=== PATIENT | female | born 1960 ===

== ENCOUNTER 2021-03-09 09:51 | Outpatient (REF) | payer MEDICARE, OTHER, SELFPAY ==
[2021-03-09 10:48] LABS: MANUAL DIFF FLAG NO
[2021-03-09 10:53] LABS: Basophils Percent Auto 0.7 % (0-2); Eosinophils Absolute Auto 0.1 X10*3/uL (0.0-0.4); Eosinophils Percent Auto 2.1 % (0-4); Hematocrit 42.6 % (37-47); Hemoglobin 14.2 g/dl (12.0-16.0); Imm Gran Abs Auto 0.02 X10*3/uL (0.00-0.03); Imm Gran Pct Auto 0.3 % (0.0-0.4); Lymphocytes Absolute Auto 1.6 X10*3/uL (1.2-4.9); Mean Corpuscular HGB Conc 33.3 g/dl (31.0-35.0); Monocytes Absolute Auto 0.3 X10*3/uL (0.1-1.2); Monocytes Percent Auto 5.6 % (2-11); Neutrophils Percent Auto 65.3 % (45-73); Platelet Count 233 X10*3/uL (160-400); Red Blood Count 4.58 X10*6/uL (4.20-5.50); Red Cell Distribution Width 12.7 % (11.0-16.0); White Blood Count 6.1 X10*3/uL (4.8-10.8)
[2021-03-09 11:05] LABS: Glucose Urine UA 100 MG/DL (NEG); Leukocyte Esterase Urine TRACE (NEG); Nitrite Urine NEG (NEG); Specific Gravity - Urine >= 1.030 (1.005-1.025); UACC Culture Trigger YES; Urine Blood NEG (NEG); Urine Ketones NEG (NEG); Urine Protein NEG (NEG-TRACE)
[2021-03-09 11:07] LABS: Appearance Urine HAZY; Color Urine YELLOW
[2021-03-09 11:22] LABS: Alanine Aminotransferase 21 U/L (0-31); Alkaline Phosphatase 100 U/L (39-117); Anion Gap 12 (12-20); Aspartate Amino Transferase 19 U/L (5-31); Bilirubin Total 0.4 mg/dL (0.0-1.0); Blood Urea Nitrogen 16 mg/dL (9-16); Calcium 10.2 mg/dL (8.4-10.2); Carbon Dioxide 28 mmol/L (22-29); Chloride 103 mmol/L (96-108); Cholesterol 252 mg/dL; Estimated Glomerular Filt Rate 59; Glucose Fasting 203 mg/dL (60-99); HDL Cholesterol 51 mg/dL; LDL Cholesterol Calculated 163 mg/dl; Potassium 4.8 mmol/L (3.3-5.1); Sodium 138 mmol/L (135-145); Triglycerides 192 mg/dL
[2021-03-09 11:25] LABS: Creatinine Urine 158.64 mg/dL; Microalbum/Creatinine Ratio Ur 17.6 ug/mg cr
[2021-03-09 11:44] LABS: TSH reflex Free T4 0.96 uIU/mL (0.32-4.0); Vitamin D 25-OH Total 37.9 ng/mL (>30)
[2021-03-09 12:59] LABS: Bacteria Urine 1+ /LPF; RBC Urine 0 /HPF (0); Squamous Epithelial Cell Urine TRACE /LPF
[2021-03-09 13:00] LABS: Calcium Phosphate Crystals Ur TRACE /LPF
[2021-03-10 13:01] LABS: C Peptide 3.66 ng/mL (0.80-3.85)
== END 2021-03-09 09:52 | disposition home or self-care (01) ==
LOC: HO.LAB 09:51
PROVIDERS: PCP Internal Medicine; Visit Provider Internal Medicine
DX: E78.00 Pure hypercholesterolemia, unspecified (principal); E11.65 Type 2 diabetes mellitus with hyperglycemia; I10 Essential (primary) hypertension; E55.9 Vitamin D deficiency, unspecified
CPT/HCPCS: 36415; 80053; 80061; 81001; 81003; 82043; 82306; 84443; 84681; 85025; 87086

== ENCOUNTER 2021-07-10 07:01 | Outpatient (REF) | payer MEDICARE, OTHER, SELFPAY ==
[2021-07-10 07:13] LABS: MANUAL DIFF FLAG NO
[2021-07-10 08:18] LABS: Basophils Absolute Auto 0.1 X10*3/uL (0.0-0.2); Basophils Percent Auto 0.7 % (0-2); Eosinophils Absolute Auto 0.2 X10*3/uL (0.0-0.4); Eosinophils Percent Auto 2.2 % (0-4); Hematocrit 44.2 % (37.0-47.0); Hemoglobin 14.5 g/dl (12.0-16.0); Imm Gran Abs Auto 0.04 X10*3/uL (0.00-0.03); Imm Gran Pct Auto 0.6 % (0.0-0.4); Lymphocytes Absolute Auto 1.9 X10*3/uL (1.2-4.9); Lymphocytes Percent Auto 27.7 % (20-40); Mean Corpuscular HGB Conc 32.8 g/dl (31.0-35.0); Mean Corpuscular Hemoglobin 30.6 pg (27.0-33.0); Mean Corpuscular Volume 93.2 fL (80.0-98.0); Mean Platelet Volume 9.8 fL (9.4-12.3); Monocytes Absolute Auto 0.5 X10*3/uL (0.1-1.2); Monocytes Percent Auto 7.9 % (2-11); Neutrophils Absolute Auto 4.2 x10*3/uL (2.0-8.3); Neutrophils Percent Auto 60.9 % (45-73); Platelet Count 240 X10*3/uL (160-400); Red Blood Count 4.74 X10*6/uL (4.20-5.50); White Blood Count 6.8 X10*3/uL (4.8-10.8)
[2021-07-10 08:21] LABS: Appearance Urine CLEAR; Color Urine YELLOW; Glucose Urine UA 100 MG/DL (NEG); Leukocyte Esterase Urine NEG (NEG); Nitrite Urine NEG (NEG); PH 5.5 (5.0-8.0); Specific Gravity - Urine 1.015 (1.005-1.025); Urine Blood NEG (NEG); Urine Ketones NEG (NEG); Urine Protein NEG (NEG-TRACE)
[2021-07-10 08:38] LABS: Estimated Average Glucose 194 mg/dL; Hemoglobin A1c % 8.4 %
[2021-07-10 08:39] LABS: Alanine Aminotransferase 19 U/L (0-31); Albumin Level 3.9 g/dL (3.5-5.0); Alkaline Phosphatase 111 U/L (39-117); Anion Gap 12 (12-20); Aspartate Amino Transferase 18 U/L (5-31); Bilirubin Total 0.3 mg/dL (0.0-1.0); Blood Urea Nitrogen 15 mg/dL (9-16); Calcium 9.9 mg/dL (8.4-10.2); Carbon Dioxide 28 mmol/L (22-29); Chloride 105 mmol/L (96-108); Cholesterol 150 mg/dL; Estimated Glomerular Filt Rate 54; Glucose Fasting 149 mg/dL (60-99); HDL Cholesterol 40 mg/dL; LDL Cholesterol Calculated 88 mg/dl; Potassium 4.3 mmol/L (3.3-5.1); Sodium 141 mmol/L (135-145); Total Protein 6.9 g/dL (6.5-8.0); Triglycerides 113 mg/dL
[2021-07-10 08:47] LABS: Creatinine Urine 97.43 mg/dL; Microalbum/Creatinine Ratio Ur 14.3 ug/mg cr
[2021-07-10 09:05] LABS: Vitamin D 25-OH Total 28.7 ng/mL (>30)
== END 2021-07-10 07:02 | disposition home or self-care (01) ==
LOC: HO.LAB 07:01
PROVIDERS: PCP Internal Medicine; Visit Provider Internal Medicine
DX: I10 Essential (primary) hypertension (principal); E11.65 Type 2 diabetes mellitus with hyperglycemia; E78.00 Pure hypercholesterolemia, unspecified; E55.9 Vitamin D deficiency, unspecified
CPT/HCPCS: 36415; 80053; 80061; 81003; 82043; 82306; 83036; 84443; 85025

== ENCOUNTER 2021-09-10 08:23 | Outpatient (REF) | payer MEDICARE, OTHER, SELFPAY ==
[2021-09-10 08:47] LABS: MANUAL DIFF FLAG NO
[2021-09-10 09:05] LABS: Basophils Percent Auto 0.5 % (0-2); Eosinophils Absolute Auto 0.2 X10*3/uL (0.0-0.4); Eosinophils Percent Auto 2.5 % (0-4); Hematocrit 43.4 % (37.0-47.0); Hemoglobin 14.5 g/dl (12.0-16.0); Imm Gran Abs Auto 0.02 X10*3/uL (0.00-0.03); Imm Gran Pct Auto 0.3 % (0.0-0.4); Lymphocytes Absolute Auto 1.7 X10*3/uL (1.2-4.9); Lymphocytes Percent Auto 28.6 % (20-40); Mean Corpuscular HGB Conc 33.4 g/dl (31.0-35.0); Mean Corpuscular Hemoglobin 30.7 pg (27.0-33.0); Mean Corpuscular Volume 91.8 fL (80.0-98.0); Mean Platelet Volume 9.6 fL (9.4-12.3); Monocytes Absolute Auto 0.4 X10*3/uL (0.1-1.2); Monocytes Percent Auto 6.2 % (2-11); Neutrophils Absolute Auto 3.7 x10*3/uL (2.0-8.3); Neutrophils Percent Auto 61.9 % (45-73); Platelet Count 240 X10*3/uL (160-400); Red Blood Count 4.73 X10*6/uL (4.20-5.50); Red Cell Distribution Width 12.8 % (11.0-16.0)
[2021-09-10 09:15] LABS: Estimated Average Glucose 186 mg/dL; Hemoglobin A1c % 8.1 %
[2021-09-10 09:32] LABS: Creatinine Urine 256.23 mg/dL; Microalbum/Creatinine Ratio Ur 18.7 ug/mg cr
[2021-09-10 09:36] LABS: Alanine Aminotransferase 14 U/L (0-31); Alkaline Phosphatase 105 U/L (39-117); Anion Gap 11 (12-20); Aspartate Amino Transferase 17 U/L (5-31); Bilirubin Total 0.3 mg/dL (0.0-1.0); Blood Urea Nitrogen 15 mg/dL (9-16); Calcium 9.9 mg/dL (8.4-10.2); Carbon Dioxide 26 mmol/L (22-29); Chloride 105 mmol/L (96-108); Cholesterol 152 mg/dL; Estimated Glomerular Filt Rate 54; Glucose Fasting 160 mg/dL (60-99); HDL Cholesterol 43 mg/dL; LDL Cholesterol Calculated 79 mg/dl; Potassium 4.4 mmol/L (3.3-5.1); Sodium 138 mmol/L (135-145); Triglycerides 152 mg/dL
[2021-09-10 09:57] LABS: TSH reflex Free T4 0.69 uIU/mL (0.32-4.0); Vitamin D 25-OH Total 27.2 ng/mL (>30)
[2021-09-10 15:45] LABS: Appearance Urine CLOUDY; Color Urine YELLOW; Glucose Urine UA NEG (NEG); Leukocyte Esterase Urine NEG (NEG); Nitrite Urine NEG (NEG); PH 5.5 (5.0-8.0); Specific Gravity - Urine >= 1.030 (1.005-1.025); Urine Blood NEG (NEG); Urine Ketones NEG (NEG); Urine Protein TRACE MG/DL (NEG-TRACE)
== END 2021-09-10 08:24 | disposition home or self-care (01) ==
LOC: HO.LAB 08:23
PROVIDERS: PCP Internal Medicine; Visit Provider Internal Medicine
DX: E11.9 Type 2 diabetes mellitus without complications (principal); E78.00 Pure hypercholesterolemia, unspecified; I10 Essential (primary) hypertension; E55.9 Vitamin D deficiency, unspecified
CPT/HCPCS: 36415; 80053; 80061; 81003; 82043; 82306; 83036; 84443; 85025

== ENCOUNTER 2021-11-06 08:33 | Outpatient (REF) | payer MEDICARE, OTHER, SELFPAY ==
[2021-11-06 10:21] LABS: Appearance Urine HAZY; Color Urine YELLOW; Glucose Urine UA NEG (NEG); Leukocyte Esterase Urine NEG (NEG); Nitrite Urine NEG (NEG); PH 5.5 (5.0-8.0); Specific Gravity - Urine >= 1.030 (1.005-1.025); Urine Blood NEG (NEG); Urine Ketones NEG (NEG); Urine Protein NEG (NEG-TRACE)
== END 2021-11-06 08:34 | disposition home or self-care (01) ==
LOC: HO.LAB 08:33
PROVIDERS: PCP Internal Medicine; Visit Provider Internal Medicine
DX: E11.65 Type 2 diabetes mellitus with hyperglycemia (principal); I10 Essential (primary) hypertension
CPT/HCPCS: 81003

== ENCOUNTER 2022-03-30 08:08 | Outpatient (REF) | payer MEDICARE, OTHER, SELFPAY ==
[2022-03-30 08:23] LABS: MANUAL DIFF FLAG NO
[2022-03-30 08:45] LABS: Basophils Absolute Auto 0.1 X10*3/uL (0.0-0.2); Basophils Percent Auto 0.9 % (0-2); Eosinophils Absolute Auto 0.2 X10*3/uL (0.0-0.4); Eosinophils Percent Auto 2.8 % (0-4); Hematocrit 42.3 % (37.0-47.0); Hemoglobin 14.2 g/dl (12.0-16.0); Imm Gran Abs Auto 0.02 X10*3/uL (0.00-0.03); Imm Gran Pct Auto 0.3 % (0.0-0.4); Lymphocytes Absolute Auto 1.8 X10*3/uL (1.2-4.9); Lymphocytes Percent Auto 31.5 % (20-40); Mean Corpuscular HGB Conc 33.6 g/dl (31.0-35.0); Mean Corpuscular Hemoglobin 30.7 pg (27.0-33.0); Mean Corpuscular Volume 91.6 fL (80.0-98.0); Mean Platelet Volume 9.4 fL (9.4-12.3); Monocytes Absolute Auto 0.4 X10*3/uL (0.1-1.2); Monocytes Percent Auto 7.4 % (2-11); Neutrophils Absolute Auto 3.3 x10*3/uL (2.0-8.3); Neutrophils Percent Auto 57.1 % (45-73); Platelet Count 223 X10*3/uL (160-400); Red Blood Count 4.62 X10*6/uL (4.20-5.50); Red Cell Distribution Width 12.9 % (11.0-16.0); White Blood Count 5.8 X10*3/uL (4.8-10.8)
[2022-03-30 08:47] LABS: Appearance Urine Clear; Color Urine Yellow; Glucose Urine UA Negative (Negative); Leukocyte Esterase Urine Negative (Negative); Nitrite Urine Negative (Negative); PH 5.5 (5.0-9.0); Specific Gravity - Urine 1.015 (1.005-1.025); Urine Blood Negative (Negative); Urine Ketones Negative (Negative); Urine Protein Negative (Neg-Trace)
[2022-03-30 09:00] LABS: Creatinine Urine 80.68 mg/dL; Microalbum/Creatinine Ratio Ur 27.2 ug/mg cr
[2022-03-30 09:10] LABS: B Type Natriuretic Peptide 19 pg/mL (<100)
[2022-03-30 09:18] LABS: Alanine Aminotransferase 23 U/L (0-31); Albumin Level 4.2 g/dL (3.5-5.0); Alkaline Phosphatase 102 U/L (39-117); Anion Gap 14 (12-20); Aspartate Amino Transferase 18 U/L (5-31); Bilirubin Total 0.5 mg/dL (0.0-1.0); Blood Urea Nitrogen 16 mg/dL (9-16); Calcium 9.9 mg/dL (8.4-10.2); Carbon Dioxide 26 mmol/L (22-29); Chloride 105 mmol/L (96-108); Cholesterol 182 mg/dL; Estimated Glomerular Filt Rate 60; Glucose Fasting 110 mg/dL (60-99); HDL Cholesterol 46 mg/dL; LDL Cholesterol Calculated 110 mg/dl; Potassium 4.2 mmol/L (3.3-5.1); Sodium 141 mmol/L (135-145); Total Protein 7.5 g/dL (6.5-8.0); Triglycerides 132 mg/dL
[2022-03-30 09:21] LABS: Estimated Average Glucose 194 mg/dL; Hemoglobin A1c % 8.4 %
[2022-03-30 09:40] LABS: TSH reflex Free T4 0.94 uIU/mL (0.32-4.0); Vitamin D 25-OH Total 42.6 ng/mL (>30)
== END 2022-03-30 08:09 | disposition home or self-care (01) ==
LOC: HO.LAB 08:08
PROVIDERS: PCP Internal Medicine; Visit Provider Internal Medicine
DX: I11.0 Hypertensive heart disease with heart failure (principal); I50.9 Heart failure, unspecified; E11.9 Type 2 diabetes mellitus without complications; E55.9 Vitamin D deficiency, unspecified; E78.00 Pure hypercholesterolemia, unspecified
CPT/HCPCS: 36415; 80053; 80061; 81003; 82043; 82306; 83036; 83880; 84443; 85025

== ENCOUNTER 2022-09-06 07:48 | Outpatient (REF) | payer MEDICARE, OTHER, SELFPAY ==
--- NOTE | ~2022-09-06 | US_ITS ---
EXAMINATION: US ABDOMEN COMPLETE CLINICAL INFORMATION: Unspecified abdominal pain. COMPARISON: None TECHNIQUE: Real-time imaging of the abdominal viscera. FINDINGS: PANCREAS: The pancreas appears unremarkable, without masses or ductal dilatation, with the exception of the tail which is obscured by bowel gas. ABDOMINAL AORTA: The proximal, mid, and distal segments are normal in caliber. INFERIOR VENA CAVA: Visualized portions are normal. LIVER: Normal. The liver is normal in size. The liver contour is normal. There is diffuse increased liver parenchymal echogenicity, consistent with hepatic steatosis. No focal hepatic lesion. There is no intrahepatic biliary duct dilatation seen. GALLBLADDER: Normal. The gallbladder is physiologically distended without evidence of stones, sludge, polyps, wall thickening or pericholecystic fluid. COMMON BILE DUCT: Normal in caliber measuring 0.7 cm in diameter. RIGHT KIDNEY: Normal. No hydronephrosis. No renal calculi or focal parenchymal lesions. The kidney measures 9.2 cm in maximum dimension. LEFT KIDNEY: Normal. No hydronephrosis. No renal calculi or focal parenchymal lesions. The kidney measures 11.3 cm in maximum dimension. SPLEEN: Normal. The spleen measures 10.5 cm in maximum dimension. FREE FLUID: None. US/US abdomen complete IMPRESSION: Hepatic steatosis.
== END 2022-09-06 07:49 | disposition home or self-care (01) ==
LOC: HO.US 07:48
PROVIDERS: Visit Provider Internal Medicine
DX: R10.9 Unspecified abdominal pain (principal); R68.81 Early satiety
CPT/HCPCS: 76700

== ENCOUNTER 2022-10-08 14:54 | Outpatient (REF) | payer MEDICARE, OTHER, SELFPAY ==
--- NOTE | ~2022-10-08 | XR_ITS ---
EXAMINATION: XR CHEST CLINICAL INFORMATION: Acute bronchitis. COMPARISON: None available. TECHNIQUE: 2 views of the chest were obtained. FINDINGS: Support devices: Left-sided pacemaker device appears in good position. No significant abnormality is noted involving the heart, lungs, mediastinum, bony thorax or soft tissues. XR/XR chest 2V IMPRESSION: No acute cardiopulmonary process.
== END 2022-10-08 14:55 | disposition home or self-care (01) ==
LOC: HO.HMGCX 14:54
PROVIDERS: Visit Provider Internal Medicine
DX: J20.9 Acute bronchitis, unspecified (principal)
CPT/HCPCS: 71046

== ENCOUNTER 2023-04-04 06:11 | Outpatient (REF) | payer MEDICARE, OTHER, SELFPAY ==
[2023-04-04 12:06] LABS: Alanine Aminotransferase 11 U/L (0-31); Albumin Level 4.4 g/dL (3.5-5.0); Alkaline Phosphatase 84 U/L (39-117); Anion Gap 13 (12-20); Aspartate Amino Transferase 16 U/L (5-31); Bilirubin Total 0.4 mg/dL (0.0-1.0); Blood Urea Nitrogen 21 mg/dL (9-16); Calcium 10.2 mg/dL (8.4-10.2); Carbon Dioxide 25 mmol/L (22-29); Chloride 107 mmol/L (96-108); Cholesterol 146 mg/dL (<200); Estimated Glomerular Filt Rate 46; Glucose Fasting 143 mg/dL (60-99); HDL Cholesterol 41 mg/dL (>40); LDL Cholesterol Calculated 86 mg/dL (<100); Potassium 4.6 mmol/L (3.3-5.1); Sodium 140 mmol/L (135-145); Total Protein 7.6 g/dL (6.5-8.0); Triglycerides 96 mg/dL (<150)
[2023-04-04 12:33] LABS: Estimated Average Glucose 143 mg/dL; Hemoglobin A1c % 6.6 % (<6.0)
== END 2023-04-04 06:12 | disposition home or self-care (01) ==
LOC: HO.HMGCLDS 06:11
PROVIDERS: PCP Internal Medicine; Visit Provider Internal Medicine
DX: E78.00 Pure hypercholesterolemia, unspecified (principal); E11.9 Type 2 diabetes mellitus without complications
CPT/HCPCS: 36415; 80053; 80061; 83036

== ENCOUNTER 2023-04-07 15:21 | Outpatient (AMB) | payer MEDICARE, OTHER, SELFPAY ==
[2023-04-07 15:27] VITALS: BP 122/80; PULSE 68; O2SAT 96; BMI 24.6
--- NOTE | 2023-04-07 15:27 | MHC.PC.OV ---
Vital Signs 04/07/23 15:27 Height 5 ft 3 in Weight 139 lb BMI 24.6 BP 122/80 Blood Pressure Location Lt brachial Position Sitting Pulse 68 Pulse Source Pulse Oximeter Pulse Oximetry (%) 96 Oxygen Delivery Method Room Air Intake Visit Reasons: DM, hyperlipidemia Vein Pumper Required: No Accompanied by: Self / Same As Patient Allergies No Known Allergies Allergy (Verified 04/07/23 16:00) Medication List - Last Reconciled 04/07/23 by Arthur Pro MD albuterol sulfate 90 mcg/actuation (ProAir HFA) 2 puffs inhalation Q6H PRN 30 days amlodipine 5 mg PO DAILY aspirin 81 mg PO DAILY atorvastatin 10 mg PO BEDTIME 90 days [BD Ultra Fine Micro Pen Needle 32 gauge x Use as directed] dicyclomine 10 mg PO BID PRN 30 days dulaglutide 1.5 mg (0.5 mL) subcut QWEEK 3 months estradiol 1 vag ring vaginal [id number] flash glucose scanning reader ([employer] Zoila 14 Day Perry) As directed flash glucose sensor (FreeStyle Zoila 14 Day Sensor kit) As directed fluticasone propionate 220 mcg/actuation (Flovent HFA) 2 puffs inhalation BID fluticasone propionate 50 mcg/actuation 1 spray intranasal BID furosemide 40 mg Q AM and 20 mg Q PM PO; glipizide ER 2.5 mg PO BID insulin glargine (Lantus Solostar U-100 Insulin) 10 units (0.1 mL) subcut QPM ivabradine 5 mg PO BID metoprolol succinate ER 12.5 mg PO DAILY mirtazapine 45 mg PO BEDTIME 90 days patiromer calcium sorbitex 8.4 grams PO DAILY pen needle, diabetic (BD Jen 2nd Gen Pen Needle) USE DIRECTED prednisone 60 mg (3 x 20 mg) PO DAILY ropinirole 5 mg PO BID 30 days sacubitril-valsartan 97-103 mg (Entresto) 1 tab PO BID sodium polystyrene sulf-sorbtl 15-20 gram/60 mL 60 mL PO .TIW tizanidine 4 mg PO BEDTIME PRN 30 days trazodone 100 mg PO BEDTIME PRN 90 days Tobacco use date assessed: 04/07/23 Dental Screening Dental Screen Date: 04/07/23 Did you have a dental visit in the last 12 months?: No Did you have a dental problem in the last 6 months where you did not have access to dental care?: No Was dental information given to patient?: No HPI DM, hyperlipidemia HPI Details Patient comes in today for her follow up visit States that she currently feels okay but has a small red spot near the tip of her left middle finger at the DIP joint that she states feels slightly painful and keeps recurring for the past few weeks now She denies any headaches or dizziness Denies any chest pains, no SOB No nausea/vomiting, no abdominal pain No change in bowel habits noted Had her follow-up labs done a few days ago - to discuss her results [facility] Medical History Hyperkalemia Anxiety and depression Depression Anxiety Insomnia Mild intermittent asthma Pure hypercholesterolemia Benign essential hypertension Non-ischemic cardiomyopathy Chronic HFrEF (heart failure with reduced ejection fraction) Diabetes mellitus with hyperglycemia DM (diabetes mellitus) type II uncontrolled with eye manifestation Surgical History History of implantable cardiac defibrillator (ICD) History of radiation therapy History of reduction surgery of left breast History of removal of cyst History of lumpectomy of right breast Family History Father Medical history unknown Mother No problems noted. Social History Housing: House Alcohol intake: current Alcohol intake frequency: holidays/special occasions only Patient Tobacco Use Status: Former Tobacco user e-Cigarette/Vaping Use: Never Used Second Hand Smoke Exposure: Yes Substance Use Type: Marijuana service: No Current occupational status: disabled Cognitive needs: No Hearing needs: No Vision needs: Yes Questionnaire PHQ-9 Over the last 2 weeks, how often have you been bothered by any of the following problems? 1. Little interest or pleasure in doing things: more than half the days 2. Feeling down, depressed, or hopeless: more than half the days 3. Trouble falling or staying asleep, or sleeping too much: more than half the days 4. Feeling tired or having little energy: nearly every day 5. Poor appetite or overeating: several days 6. Feeling bad about yourself - or that you are a failure or have let yourself or your family down: not at all 7. Trouble concentrating on things, such as reading the newspaper or watching television: more than half the days 8. Moving or speaking so slowly that other people could have noticed. Or the opposite - being so fidgety or restless that you have been moving around a lot more than usual: not at all 9. Thoughts that you would be better off or of hurting yourself in some way: not at all Total score: 12 Depression Screening Interpretation: Positive Depression Screening Follow-up: Existing condition and In treatment 95254 - PHQ-9 Billing: Yes Source: Developed by Drs. Quinn Nieves, Evangelina White, Uzair Beard and colleagues, with an educational antonietta from [employer]. Thrive Questionnaire Date Thrive assessed: 04/07/23 I am a: Patient What is your living situation today?: I have a steady place to live Within the past 12 months, did the food you bought not last and you didn't have the money to get more?: Never true Within the past 12 months, did you worry whether your food would run out before you got money to buy more?: Never true Do you have trouble paying for medicines?: No Do you have trouble getting transportation to medical appointments?: No Do you have trouble paying your heating and electricity bill?: No Do you have trouble taking care of your child, family member or friend?: No Do you have trouble with day-to-day activities such as bathing, preparing meals, shopping, managing finances, etc.?: No Are you currently unemployed and looking for a job?: No Are you interested in more education?: No Please select the resources that you would like help with: None Currently or been in a relationship where the following occur: no concerns reported AUDIT C Alcohol Use Questionnaire (AUDIT-C) 1. How often do you have a drink containing alcohol?: Never 3. How often do you have six or more drinks on one occasion?: Never Total Score: 0 Score Reviewed/Action Taken: Yes VINAY-7 AMB Questionnaire VINAY-7 Date VINAY - 7 assessed: 04/07/23 Feeling nervous, anxious, or on edge: 2 = More than half the days Not being able to stop or control worryin = More than half the days Worrying too much about different things: 1 = Several days Trouble relaxin = More than half the days Being so restless that it is hard to sit still: 0 = Not at all Becoming easily annoyed or irritable: 3 = Nearly every day Feeling afraid as if something awful might happen: 2 = More than half the days Total VINAY-7 score (0-4 normal; 5-9 mild; 10-14 moderate; 15-21 severe): 12 Source: Developed by Drs. Quinn Nieves, Evangelina White, Uzair Beard and colleagues, with an educational antonietta from [employer]. VINAY-7 Assessment Billing VINAY-7 Assessment Tool: VINAY-7 Assessment 31698 Review of Systems Const Reports difficulty sleeping, Reports fatigue, Denies fever(s) and Denies headache(s) ENT Denies dysphagia, Denies dizziness, Denies otalgia, Denies headache(s), Denies odynophagia and Denies sore throat Card Denies chest pain, Denies palpitations and Denies dyspnea Resp Denies cough and Denies dyspnea GI Denies abdominal pain, Denies constipation, Denies dysphagia, Denies heartburn, Denies diarrhea, Denies nausea, Denies odynophagia and Denies vomiting Denies difficulty voiding, Denies nocturia and Denies dysuria Skin/Breast Details: (+) recurrent lesion on the left middle finger - see HPI Neuro Denies dizziness and Denies headache(s) Psych Reports anxiety and Reports depression Endo Reports fatigue and Denies palpitations Physical exam (Primary Care) Vital Signs: Last Vital Signs Pulse 68 04/07/23 15:27 BP 122/80 04/07/23 15:27 Pulse Ox 96 04/07/23 15:27 Oxygen Delivery Method Room Air 04/07/23 15:27 BMI result Body Mass Index 24.6 Tobacco/Smoking Status: Tobacco use Status Tobacco use date assessed 04/07/23 04/07/23 15:35 Patient Tobacco Use Status Former Tobacco user 04/07/23 15:35 e-Cigarette/Vaping Use Never Used 04/07/23 15:35 PHQ-9: PHQ-9 Score PHQ-9: Total score 12 04/07/23 22:33 Depression Screening Interpretation: Positive Depression Screening Follow-up: Existing condition and In treatment Thrive Assessment: Date of Thrive Assessment Date Thrive assessed 04/07/23 04/07/23 15:35 Currently or been in a relationship where the following occur: no concerns reported Const General: no acute distress and alert HENMT Ears: TM's normal bilaterally and EAC's normal Throat: Yes posterior oropharynx normal and Yes tonsils normal (no TP congestion noted) Neck Neck: Yes no lymphadenopathy and Yes supple Resp Auscultation: clear to auscultation bilaterally, no rales and no wheezes Cardio Rate: regular rate Rhythm: regular rhythm Heart sounds: no murmurs GI Palpation (GI): Soft to palpation, nontender and no guarding Auscultation: normal bowel sounds General: Yes no CVA tenderness Back/Spine/Pelvis Back: no CVA tenderness Skin Other: (+) small, slightly tender erythematous lesion over the distal IP joint of the left middle finger Extrem General: Yes no clubbing, cyanosis or edema Results Reviewed Results Reviewed: Laboratory Tests 03/30/22 04/04/23 08:21 06:22 WBC 5.8 Hgb 14.2 Hct 42.3 Plt Count 223 Sodium 140 Potassium 4.6 Creatinine 1.18 Estimated GFR 46 Fasting Glucose 143 H Hemoglobin A1c % 6.6 H Calcium 10.2 AST 16 ALT 11 Triglycerides 96 Cholesterol 146 LDL Cholesterol, Calc 86 HDL Cholesterol 41 Assessment and Plan Assessment & Plan (1) Diabetes mellitus with hyperglycemia: Code(s): E11.65 - Type 2 diabetes mellitus with hyperglycemia Qualifiers: Diabetes mellitus fdc insulin use: with fdc use Diabetes mellitus type: type 2 Qualified Code(s): E11.65 - Type 2 diabetes mellitus with hyperglycemia; Z79.4 - alf (current) use of insulin Plan: HgbA1c was at 6.6% on patient's labs done a few days ago (in-office HgbA1c was at 6.3% previously) - goal is < 7.0% Patient admits to poor compliance with her diet when she went to [place] to visit family 1 to 2 months ago Reinforced diabetic diet Continue Glipizide ER 2.5 mg QD, Lantus Solostar 10 units Q HS and Trulicity 1.5 mg SQ once a week (2) Chronic HFrEF (heart failure with reduced ejection fraction): Comment: Chronic, compensated, NYHA class 3 stage C Has ICD for primary prevention Code(s): I50.22 - Chronic systolic (congestive) heart failure Plan: Appears compensated Reinforced fluid restriction Continue Furosemide 40 mg Q AM and 20 mg Q PM, Entresto 97-103 mg BID and Ivabradine 5 mg BID (is on Ivabradine for sinus tachycardia in the setting of NYHA class 3 HF and high resting HR on maximally tolerated BB - higher dose BB resulted in severe depression) Follow up with cardiology at [facility] as scheduled (3) Non-ischemic cardiomyopathy: Comment: Presumed etiology of her cardiomyopathy are either hypertension or related to her chemoradiation therapy for breast cancer years ago Code(s): I42.8 - Other cardiomyopathies Plan: Continue Metoprolol ER 12.5 mg QD and Aspirin 81 mg QD Follow up with cardiology at [facility] as scheduled (4) Benign essential hypertension: Code(s): I10 - Essential (primary) hypertension Plan: Reinforced low sodium diet - goal is systolic BP of 120 mm or less Continue Metoprolol ER 12.5 mg QD and Amlodipine 5 mg QD (5) Pure hypercholesterolemia: Code(s): E78.00 - Pure hypercholesterolemia, unspecified Plan: Results of her labs done a few days ago reviewed and discussed with patient Reinforced low cholesterol diet Continue Pravastatin 20 mg QD Will recheck her labs and fasting lipids in 4 month for follow up (6) Mild intermittent asthma: Code(s): J45.20 - Mild intermittent asthma, uncomplicated Qualifiers: Asthma complication type: uncomplicated Qualified Code(s): J45.20 - Mild intermittent asthma, uncomplicated Plan: Stable Contnue Flovent HFA 220 mcg 1 inhalation BID and ProAir HFA 2 inhalations every 6 hours as needed (7) Constipation: Code(s): K59.00 - Constipation, unspecified Qualifiers: Constipation type: unspecified constipation type Qualified Code(s): K59.00 - Constipation, unspecified Plan: Encouraged increased oral fluids and dietary fiber Continue Senna 8.6 mg 1 to 2 tablets QD PRN (8) Hyperkalemia: Code(s): E87.5 - Hyperkalemia Plan: Corrected - serum potassium level remains normal at 4.6 on her recent labs Continue Patiromer 8.4 gm QD and Sodium polystyrene sulfonate 15 gm/60 ml every -- (9) Allergic rhinitis: Code(s): J30.9 - Allergic rhinitis, unspecified Qualifiers: Allergic rhinitis seasonality: unspecified Allergic rhinitis trigger: unspecified Qualified Code(s): J30.9 - Allergic rhinitis, unspecified Plan: Continue OTC Loratadine 10 mg QD PRN or Cetirizine 10 mg QD PRN (10) Impetigo: Code(s): L01.00 - Impetigo, unspecified Plan: Lesion is on the IP joint of her left middle finger Will start her on Mupirocin 2% cream apply to lesion on finger TID until resolved (11) Insomnia: Code(s): G47.00 - Insomnia, unspecified Qualifiers: Insomnia type: unspecified Qualified Code(s): G47.00 - Insomnia, unspecified Plan: Sleep hygiene reinforced Continue Trazodone 50 to 100 mg Q HS PRN (12) Anxiety and depression: Code(s): F41.9 - Anxiety disorder, unspecified; F32.9 - Major depressive disorder, single episode, unspecified Plan: Continue Mirtazapine 45 mg Q HS Follow up with psychiatry as scheduled Plan Follow up in 4 months Orders: Orders Complete Blood Count Auto Diff 4 Months I10 - Essential (primary) hypertension Comprehensive [place]. Panel Fast 4 Months E78.00 - Pure hypercholesterolemia, unspecified TSH reflex Free T4 4 Months E78.00 - Pure hypercholesterolemia, unspecified UA CC w/rflx Micro + Cult 4 Months R30.0 - Dysuria Lipid Panel 4 Months E78.00 - Pure hypercholesterolemia, unspecified Hemoglobin A1c 4 Months E11.9 - Type 2 diabetes mellitus without complications Vitamin D 25-OH Total 4 Months E55.9 - Vitamin D deficiency, unspecified Medications: New mupirocin calcium 2% 1 appl topical TID 30 grams 1RF Coding Level of Care Code Est Pt Level 4 (83628) Diagnoses Type 2 diabetes mellitus with hyperglycemia, with long-term current use of insulin E11.65; Z79.4 Diabetes mellitus fdc insulin use: with fdc use Diabetes mellitus type: type 2 Chronic HFrEF (heart failure with reduced ejection fraction) I50.22 Non-ischemic cardiomyopathy I42.8 Benign essential hypertension I10 Pure hypercholesterolemia E78.00 Mild intermittent asthma without complication J45.20 Asthma complication type: uncomplicated Constipation, unspecified constipation type K59.00 Constipation type: unspecified constipation type Hyperkalemia E87.5 Allergic rhinitis, unspecified seasonality, unspecified trigger J30.9 Allergic rhinitis seasonality: unspecified Allergic rhinitis trigger: unspecified Impetigo L01.00 Insomnia, unspecified type G47.00 Insomnia type: unspecified Anxiety and depression F41.9; F32.9 Additional Codes VINAY-7 Assessment Billing - VINAY-7 Assessment Tool: VINAY-7 Assessment 54193 ([id number])
== END 2023-04-07 16:09 | disposition home or self-care (01) ==
PROVIDERS: Visit Provider Internal Medicine
DX: E11.65 Type 2 diabetes mellitus with hyperglycemia (principal); Z79.4 Long term (current) use of insulin; I11.0 Hypertensive heart disease with heart failure; I50.22 Chronic systolic (congestive) heart failure; I42.8 Other cardiomyopathies; E78.00 Pure hypercholesterolemia, unspecified; J45.20 Mild intermittent asthma, uncomplicated; K59.00 Constipation, unspecified; E87.5 Hyperkalemia; J30.9 Allergic rhinitis, unspecified; L01.00 Impetigo, unspecified; G47.00 Insomnia, unspecified
CPT/HCPCS: 99214

== ENCOUNTER 2023-05-16 06:39 | Outpatient (REF) | payer MEDICARE, OTHER, SELFPAY ==
--- NOTE | ~2023-05-16 | XR_ITS ---
EXAMINATION: XR CHEST CLINICAL INFORMATION: Patient stated cough for over 2 weeks COMPARISON: 10/08/2022. TECHNIQUE: 2 views of the chest were obtained. FINDINGS: There is no gross pneumothorax. Low lung volumes. Heart size within normal limits. Redemonstration of left-sided pacemaker, stable in position. There is no new focal consolidation to suggest pneumonia. No pleural effusion. Mild degenerative changes in the thoracic spine. XR/XR chest 2V IMPRESSION: No evidence of pneumonia.
== END 2023-05-16 06:40 | disposition home or self-care (01) ==
LOC: HO.XRAY 06:39
PROVIDERS: PCP Internal Medicine; Visit Provider Internal Medicine
DX: J98.8 Other specified respiratory disorders (principal); R05.9 Cough, unspecified
CPT/HCPCS: 71046

== ENCOUNTER 2023-05-24 07:39 | Outpatient (REF) | payer MEDICARE, OTHER, SELFPAY ==
[2023-05-24 11:06] LABS: MANUAL DIFF FLAG NO
[2023-05-24 11:15] LABS: Basophils Absolute Auto 0.1 X10*3/uL (0.0-0.2); Basophils Percent Auto 0.9 % (0-2); Eosinophils Absolute Auto 0.2 X10*3/uL (0.0-0.4); Eosinophils Percent Auto 3.2 % (0-4); Hemoglobin 14.9 g/dl (12.0-16.0); Imm Gran Abs Auto 0.02 X10*3/uL (0.00-0.03); Imm Gran Pct Auto 0.3 % (0.0-0.4); Lymphocytes Absolute Auto 1.9 X10*3/uL (1.2-4.9); Lymphocytes Percent Auto 27.5 % (20-40); Mean Corpuscular HGB Conc 33.9 g/dl (31.0-35.0); Mean Corpuscular Hemoglobin 31.8 pg (27.0-33.0); Mean Platelet Volume 10.2 fL (9.4-12.3); Monocytes Absolute Auto 0.4 X10*3/uL (0.1-1.2); Monocytes Percent Auto 6.1 % (2-11); Neutrophils Absolute Auto 4.3 x10*3/uL (2.0-8.3); Platelet Count 289 X10*3/uL (160-400); Red Blood Count 4.68 X10*6/uL (4.20-5.50); Red Cell Distribution Width 12.3 % (11.0-16.0); White Blood Count 6.9 X10*3/uL (4.8-10.8)
[2023-05-24 11:20] LABS: Appearance Urine Clear; Color Urine Yellow; Glucose Urine UA Negative (Negative); Leukocyte Esterase Urine Trace (Negative); Nitrite Urine Negative (Negative); PH 5.5 (5.0-9.0); Specific Gravity - Urine 1.015 (1.005-1.025); UMIC TRIGGER UACC YES; Urine Blood Negative (Negative); Urine Ketones Negative (Negative); Urine Protein Negative (Neg-Trace)
[2023-05-24 11:28] LABS: Bacteria Urine None Seen (None Seen); Estimated Average Glucose 140 mg/dL; Hemoglobin A1c % 6.5 % (<6.0); Hyaline Casts Urine 0-2 /LPF (0-2); RBC Urine 0-2 /HPF (0-2); Squamous Epithelial Cell Urine 0-2 /HPF (0-2); WBC Urine 0-5 /HPF (0-5)
[2023-05-24 11:44] LABS: Alanine Aminotransferase 17 U/L (0-31); Albumin Level 4.5 g/dL (3.5-5.0); Alkaline Phosphatase 76 U/L (39-117); Anion Gap 14 (12-20); Aspartate Amino Transferase 22 U/L (5-31); Bilirubin Total 0.5 mg/dL (0.0-1.0); Blood Urea Nitrogen 20 mg/dL (9-16); Calcium 11.1 mg/dL (8.4-10.2); Carbon Dioxide 25 mmol/L (22-29); Chloride 103 mmol/L (96-108); Cholesterol 162 mg/dL (<200); Estimated Glomerular Filt Rate 44; Glucose Fasting 129 mg/dL (60-99); Glucose Random 128 mg/dL (60-115); HDL Cholesterol 45 mg/dL (>40); LDL Cholesterol Calculated 92 mg/dL (<100); Potassium 5.1 mmol/L (3.3-5.1); Sodium 137 mmol/L (135-145); Total Protein 8.1 g/dL (6.5-8.0); Triglycerides 126 mg/dL (<150)
[2023-05-24 11:48] LABS: TSH reflex Free T4 1.12 uIU/mL (0.32-4.0)
[2023-05-24 11:50] LABS: Creatinine Urine 89.15 mg/dL
[2023-05-24 11:56] LABS: Vitamin D 25-OH Total 39.7 ng/mL (>30)
[2023-05-24 12:00] LABS: Folate 13.8 ng/mL (> or = 4.0); Vitamin B12 866 pg/mL (200-900)
[2023-05-26 13:56] LABS: B Type Natriuretic Peptide < 10 pg/mL (<100)
== END 2023-05-24 07:40 | disposition home or self-care (01) ==
LOC: HO.HMGCLDS 07:39
PROVIDERS: PCP Internal Medicine; Visit Provider Internal Medicine
DX: I11.0 Hypertensive heart disease with heart failure (principal); I50.9 Heart failure, unspecified; R05.9 Cough, unspecified; R06.00 Dyspnea, unspecified; E78.00 Pure hypercholesterolemia, unspecified; E11.9 Type 2 diabetes mellitus without complications; E55.9 Vitamin D deficiency, unspecified; E53.8 Deficiency of other specified B group vitamins
CPT/HCPCS: 36415; 80053; 80061; 81001; 82043; 82306; 82570; 82607; 82746; 83036; 83880; 84443; 85025

== ENCOUNTER 2023-06-24 09:55 | Outpatient (REF) | payer MEDICARE, OTHER, SELFPAY ==
--- NOTE | ~2023-06-24 | XR_ITS ---
EXAMINATION: XR HAND, LEFT CLINICAL INFORMATION: Pain COMPARISON: None available. TECHNIQUE: PA, lateral, and oblique views of the left hand. FINDINGS: No acute visible fracture or dislocation. Mild multi joint arthritic changes. Slight positive ulnar variance. Joint spaces and alignment are otherwise maintained. Soft tissues are unremarkable. XR/XR hand LT min 3V IMPRESSION: 1. No acute visible fracture or dislocation. 2. Mild multi joint arthritic changes. 3. Slight positive ulnar variance.
== END 2023-06-24 09:56 | disposition home or self-care (01) ==
LOC: HO.HOSX 09:55
PROVIDERS: Visit Provider Physician Assistant
DX: M67.442 Ganglion, left hand (principal); M79.645 Pain in left finger(s)
CPT/HCPCS: 73130; 99202

== ENCOUNTER 2023-06-24 14:53 | Outpatient (AMB) | payer MEDICARE, OTHER, SELFPAY ==
--- NOTE | 2023-06-24 15:18 | A.OFFVIS_ITS ---
Intake Intake Visit Reasons: Manager Paper- cyst over the distal IP joint LT middle finger Intake Note: Phyllis 63 yr old female who is right hand dominant presents today for her left middle finger DIP lump. States she has pain when putting on gloves and gives her discomfort with use of finger. Patient is looking to have this remove. Allergies No Known Allergies Allergy (Verified 06/24/23 15:23) HPI Manager Paper- cyst over the distal IP joint LT middle finger HPI Details 63-year-old right hand dominant female charleen yu presents in the office today, as a new patient, for an evaluation of left middle digit lump at the DIP. She claims to have pain when putting on gloves. She reports discomfort with use of the left middle digit. She would like to discuss removing the lump from the finger. [facility] Medical History Hyperkalemia Anxiety and depression Depression Anxiety Insomnia Mild intermittent asthma Pure hypercholesterolemia Benign essential hypertension Non-ischemic cardiomyopathy Chronic HFrEF (heart failure with reduced ejection fraction) Diabetes mellitus with hyperglycemia DM (diabetes mellitus) type II uncontrolled with eye manifestation Surgical History History of implantable cardiac defibrillator (ICD) History of radiation therapy History of reduction surgery of left breast History of removal of cyst History of lumpectomy of right breast Family History Father Medical history unknown Mother No problems noted. Social History Housing: House Alcohol intake: current Alcohol intake frequency: holidays/special occasions only Patient Tobacco Use Status: Former Tobacco user e-Cigarette/Vaping Use: Never Used Second Hand Smoke Exposure: Yes Substance Use Type: Marijuana service: No Current occupational status: disabled Cognitive needs: No Hearing needs: No Vision needs: Yes Review of Systems Const All systems reviewed & are unremarkable except as noted in HPI and below Physical Exam Const General: cooperative and no acute distress Orientation/consciousness: patient oriented x3 Resp Effort & Inspection: normal respiratory effort and able to speak in complete sentences Cardio Peripheral pulses: Peripheral pulses 2+ throughout Skin General skin exam: no rashes or lesions noted Neuro General: patient oriented x3 Extrem Other: Left middle digit: Ganglion cyst located over the volar aspect of the DIP of the middle finger. Able to perform full finger flexion, extension, abduction, adduction, finger cross, okay sign, and thumbs up without deficit. Able to make a full fist. Sensation intact. Capillary refill is brisk. Assessment & Plan Assessment & Plan (1) Ganglion cyst of finger of left hand: Comment: Volar aspect of the DIP of the left middle finger. Code(s): M67.442 - Ganglion, left hand Plan Ms. Howard is a 63-year-old right hand dominant female who presents in the office today, as a new patient, for an evaluation of left middle digit lump at the DIP. She claims to have pain when putting on gloves. She reports discomfort with use of the left middle digit. She would like to discuss removing the lump from the finger. The patient would like to move forward with surgical intervention of the ganglion cyst. The patient will be scheduled with Dr. Parkinson once she returns from her leave for her preoperative appointment to discuss surgical details and recovery time. Follow up will be with Dr. Parkinson, or sooner if needed. X-rays of the left hand which were obtained while in the office today and were reviewed by me, Mckenna Arana PA-C, revealed no acute fracture or dislocation. Orders: Orders XR hand LT min 3V Today M79.643 - Pain in unspecified hand Patient Instructions: Scribed for Mckenna Arana PA-C by Sienna Loomis chief medical technologist, on 06/24/2023 at 2:54 pm, EST. Coding Level of Care Code New Pt Level 4 (44497) Diagnoses Ganglion cyst of finger of left hand M67.442
== END 2023-06-24 15:27 | disposition home or self-care (01) ==
PROVIDERS: PCP Internal Medicine; Visit Provider Physician Assistant
DX: M67.442 Ganglion, left hand (principal)
CPT/HCPCS: 99203

== ENCOUNTER 2023-08-08 15:44 | Outpatient (AMB) | payer MEDICARE, OTHER, SELFPAY ==
--- NOTE | 2023-08-08 15:45 | MHC.PC.OV ---
Vital Signs 08/08/23 15:49 Height 5 ft 3 in Weight 139 lb 4 oz BMI 24.7 BP 110/60 Blood Pressure Location Lt brachial Position Sitting Pulse 89 Pulse Source Pulse Oximeter Pulse Oximetry (%) 93 Oxygen Delivery Method Room Air Intake Visit Reasons: hyperlipidemia, DM Intake Note: Patient is here to follow up on DM, Hyperlipidemia. 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 Accompanied by: Self / Same As Patient Allergies No Known Allergies Allergy (Verified 08/08/23 16:25) Medication List - Last Reconciled 08/08/23 by Arthur Pro MD albuterol sulfate 90 mcg/actuation (ProAir HFA) 2 puffs inhalation Q6H PRN 30 days amlodipine 5 mg PO DAILY aspirin 81 mg PO DAILY atorvastatin 10 mg PO BEDTIME 90 days [BD Ultra Fine Micro Pen Needle 32 gauge x Use as directed] dulaglutide 1.5 mg (0.5 mL) subcut QWEEK 3 months estradiol 0.01%(0.1mg/gram) vaginal flash glucose scanning reader ([employer] Zoila 14 Day [place]) As directed flash glucose sensor ([employer] Zoila 14 Day Sensor kit) As directed fluticasone propionate 220 mcg/actuation (Flovent HFA) 2 puffs inhalation BID fluticasone propionate 50 mcg/actuation 1 spray intranasal BID furosemide 40 mg Q AM and 20 mg Q PM PO; glipizide 5 mg PO DAILY insulin glargine (Lantus Solostar U-100 Insulin) 10 units (0.1 mL) subcut QPM metoprolol succinate ER 12.5 mg PO DAILY mirtazapine 45 mg PO BEDTIME 90 days pen needle, diabetic (BD Jen 2nd Gen Pen Needle) USE DIRECTED sacubitril-valsartan 97-103 mg (Entresto) 1 tab PO BID spironolactone 25 mg PO DAILY trazodone 100 mg PO BEDTIME PRN 90 days Tobacco use date assessed: 08/08/23 Dental Screening Dental Screen Date: 08/08/23 Did you have a dental visit in the last 12 months?: No Did you have a dental problem in the last 6 months where you did not have access to dental care?: No Was dental information given to patient?: No HPI hyperlipidemia, DM HPI Details Patient comes in today for her follow up visit States that she tested positive for COVID a few weeks after her last visit but her symptoms were mild and her asthma did not flare up much while she was sick States that she presently feels okay She denies any headaches or dizziness Denies any chest pains, no SOB No nausea/vomiting, no abdominal pain No change in bowel habits noted Had her follow up labs done a couple of months ago - to discuss her results She is scheduled for ganglion cyst excision with orthopedics on 09/25/2023 She would like to get her flu shot today [facility] Medical History Hyperkalemia Anxiety and depression Depression Anxiety Insomnia Mild intermittent asthma Pure hypercholesterolemia Benign essential hypertension Non-ischemic cardiomyopathy Chronic HFrEF (heart failure with reduced ejection fraction) Diabetes mellitus with hyperglycemia DM (diabetes mellitus) type II uncontrolled with eye manifestation Surgical History History of implantable cardiac defibrillator (ICD) History of radiation therapy History of reduction surgery of left breast History of removal of cyst History of lumpectomy of right breast Family History Father Medical history unknown Mother No problems noted. Social History Housing: House Alcohol intake: current Alcohol intake frequency: holidays/special occasions only Patient Tobacco Use Status: Former Tobacco user e-Cigarette/Vaping Use: Never Used Second Hand Smoke Exposure: Yes Substance Use Type: Marijuana service: No Current occupational status: disabled Cognitive needs: No Hearing needs: No Vision needs: Yes (glasses) Questionnaire PHQ-9 Over the last 2 weeks, how often have you been bothered by any of the following problems? 1. Little interest or pleasure in doing things: several days 2. Feeling down, depressed, or hopeless: several days 3. Trouble falling or staying asleep, or sleeping too much: nearly every day 4. Feeling tired or having little energy: nearly every day 5. Poor appetite or overeating: more than half the days 6. Feeling bad about yourself - or that you are a failure or have let yourself or your family down: not at all 7. Trouble concentrating on things, such as reading the newspaper or watching television: not at all 8. Moving or speaking so slowly that other people could have noticed. Or the opposite - being so fidgety or restless that you have been moving around a lot more than usual: not at all 9. Thoughts that you would be better off or of hurting yourself in some way: not at all Total score: 10 Depression Screening Interpretation: Positive Depression Screening Follow-up: Existing condition and In treatment Depression Screening Done: Yes 35587 - PHQ-9 Billing: Yes Source: Developed by Drs. Quinn Nieves, Evangelina White, Uzair Beard and colleagues, with an educational antonietta from [employer]. Thrive Questionnaire Date Thrive assessed: 08/08/23 I am a: Patient What is your living situation today?: I have a steady place to live Within the past 12 months, did the food you bought not last and you didn't have the money to get more?: Never true Within the past 12 months, did you worry whether your food would run out before you got money to buy more?: Never true Do you have trouble paying for medicines?: No Do you have trouble getting transportation to medical appointments?: No Do you have trouble paying your heating and electricity bill?: No Do you have trouble taking care of your child, family member or friend?: No Do you have trouble with day-to-day activities such as bathing, preparing meals, shopping, managing finances, etc.?: No Are you currently unemployed and looking for a job?: No Are you interested in more education?: No Currently or been in a relationship where the following occur: no concerns reported THRIVE Score: 0 AUDIT C Alcohol Use Questionnaire (AUDIT-C) 1. How often do you have a drink containing alcohol?: Never Total Score: 0 Score Reviewed/Action Taken: Yes VINAY-7 AMB Questionnaire VINAY-7 Date VINAY - 7 assessed: 08/08/23 Feeling nervous, anxious, or on edge: 3 = Nearly every day Not being able to stop or control worryin = More than half the days Worrying too much about different things: 2 = More than half the days Trouble relaxin = Nearly every day Being so restless that it is hard to sit still: 1 = Several days Becoming easily annoyed or irritable: 2 = More than half the days Feeling afraid as if something awful might happen: 0 = Not at all Total VINAY-7 score (0-4 normal; 5-9 mild; 10-14 moderate; 15-21 severe): 13 Source: Developed by Drs. Quinn Nieves, Evangelina White, Uzair Beard and colleagues, with an educational antonietta from [employer]. Review of Systems Const Reports difficulty sleeping, Reports fatigue, Denies fever(s) and Denies headache(s) ENT Denies dysphagia, Denies dizziness, Denies otalgia, Denies headache(s), Denies odynophagia and Denies sore throat Card Denies chest pain, Denies palpitations and Denies dyspnea Resp Denies cough and Denies dyspnea GI Denies abdominal pain, Denies constipation, Denies dysphagia, Denies heartburn, Denies diarrhea, Denies nausea, Denies odynophagia and Denies vomiting Denies difficulty voiding, Denies nocturia and Denies dysuria Skin/Breast Details: (+) raised lesion on the left middle finger Denies rash Neuro Denies dizziness and Denies headache(s) Psych Reports anxiety (better controlled lately) and Reports depression (better controlled lately) Endo Reports fatigue and Denies palpitations Physical exam (Primary Care) Vital Signs: Last Vital Signs Pulse 89 08/08/23 15:49 BP 110/60 08/08/23 15:49 Pulse Ox 93 08/08/23 15:49 Oxygen Delivery Method Room Air 08/08/23 15:49 BMI result Body Mass Index 24.7 Tobacco/Smoking Status: Tobacco use Status Tobacco use date assessed 08/08/23 08/08/23 15:50 Patient Tobacco Use Status Former Tobacco user 08/08/23 15:47 e-Cigarette/Vaping Use Never Used 08/08/23 15:47 PHQ-9: PHQ-9 Score PHQ-9: Total score 10 08/08/23 16:41 Depression Screening Interpretation: Positive Depression Screening Follow-up: Existing condition and In treatment Thrive Assessment: Date of Thrive Assessment Date Thrive assessed 08/08/23 08/08/23 15:50 Currently or been in a relationship where the following occur: no concerns reported Const General: no acute distress and alert HENMT Ears: TM's normal bilaterally and EAC's normal Throat: Yes posterior oropharynx normal and Yes tonsils normal (no TP congestion noted) Neck Neck: Yes no lymphadenopathy and Yes supple Resp Auscultation: clear to auscultation bilaterally, no rales and no wheezes Cardio Rate: regular rate Rhythm: regular rhythm Heart sounds: no murmurs GI Palpation (GI): Soft to palpation and nontender Auscultation: normal bowel sounds General: Yes no CVA tenderness Back/Spine/Pelvis Back: no CVA tenderness Skin Other: (+) small, raised cystic lesion over the distal IP joint of the left middle finger Extrem General: Yes no clubbing, cyanosis or edema Office Procedures Flu Questionnaire Does the patient have a severe egg allergy?: No Does the patient have severe life threatening allergies?: No Does the patient have a fever or illness today?: No Has the patient ever had Guillain-[place] Syndrome?: No Has the patient ever had any past reaction to a flu shot?: No Immunizations flu vacc [id number] 6mos up(PF) 60 mcg(15 mcgx4)/0.5 mL IM syringe Performing Provider: Arthur Pro MD Performing Location: [facility] Administered by: JAG Patiño on 08/08/23 17:08 Dose Route Admin Location Dispensed Lot Number Expiration Date NDC [employer]ile Att[employer] 0.5 mL IM Left Deltoid 0.5 mL [id number] 01/18/24 11385-223-87 [employer] VIS Given Date VIS Provided VIS Publication Date 08/08/23 Single Vaccine 21 Eligibility Eligibility Date Funding Source Not [facility] Eligible 08/08/23 Private Results Reviewed Results Reviewed: Laboratory Tests 05/24/23 07:58 WBC 6.9 Hgb 14.9 Hct 44.0 Plt Count 289 D Sodium 137 Potassium 5.1 Creatinine 1.23 Estimated GFR 44 Fasting Glucose 129 H Hemoglobin A1c % 6.5 H Calcium 11.1 H D AST 22 ALT 17 B-Natriuretic Peptide < 10 Triglycerides 126 Cholesterol 162 LDL Cholesterol, Calc 92 Vitamin B12 866 25-OH Vitamin D Total 39.7 TSH 1.12 Ur Specific [place] 1.015 Urine Protein Negative Urine Glucose (UA) Negative Urine Blood Negative Urine Nitrite Negative Ur Leukocyte Esterase Trace H Microalb/Creat Ratio 10.0 Assessment and Plan Assessment & Plan (1) Diabetes mellitus with hyperglycemia: Code(s): E11.65 - Type 2 diabetes mellitus with hyperglycemia Qualifiers: Diabetes mellitus terminologist insulin use: with custodial use Diabetes mellitus type: type 2 Qualified Code(s): E11.65 - Type 2 diabetes mellitus with hyperglycemia; Z79.4 - alf (current) use of insulin Plan: HgbA1c was at 6.5% on patient's labs done a couple of months ago (was at 6.6% previously) - goal is < 7.0% Reinforced diabetic diet Continue Glipizide ER 2.5 mg QD, Lantus Solostar 10 units Q HS and Trulicity 1.5 mg SQ once a week (2) Chronic HFrEF (heart failure with reduced ejection fraction): Comment: Chronic, compensated, NYHA class 3 stage C Has ICD for primary prevention Code(s): I50.22 - Chronic systolic (congestive) heart failure Plan: Appears compensated Reinforced fluid restriction Continue Furosemide 40 mg Q AM and 20 mg Q PM, Entresto 97-103 mg BID and Ivabradine 5 mg BID (is on Ivabradine for sinus tachycardia in the setting of NYHA class 3 HF and high resting HR on maximally tolerated BB - higher dose BB resulted in severe depression) Follow up with cardiology at [facility] as scheduled (3) Non-ischemic cardiomyopathy: Comment: Presumed etiology of her cardiomyopathy are either hypertension or related to her chemoradiation therapy for breast cancer years ago Code(s): I42.8 - Other cardiomyopathies Plan: Continue Metoprolol ER 12.5 mg QD and Aspirin 81 mg QD Follow up with cardiology at [facility] as scheduled (4) Benign essential hypertension: Code(s): I10 - Essential (primary) hypertension Plan: Reinforced low sodium diet - goal is systolic BP of 120 mm or less Continue Metoprolol ER 12.5 mg QD and Amlodipine 5 mg QD (5) Pure hypercholesterolemia: Code(s): E78.00 - Pure hypercholesterolemia, unspecified Plan: Results of her labs done a couple of months ago reviewed and discussed with patient Reinforced low cholesterol diet Continue Pravastatin 20 mg QD Will recheck her labs and fasting lipids in 4 month for follow up (6) Mild intermittent asthma: Code(s): J45.20 - Mild intermittent asthma, uncomplicated Qualifiers: Asthma complication type: uncomplicated Qualified Code(s): J45.20 - Mild intermittent asthma, uncomplicated Plan: Stable Contnue Flovent HFA 220 mcg 1 inhalation BID and ProAir HFA 2 inhalations every 6 hours as needed (7) Constipation: Code(s): K59.00 - Constipation, unspecified Qualifiers: Constipation type: unspecified constipation type Qualified Code(s): K59.00 - Constipation, unspecified Plan: Encouraged increased oral fluids and dietary fiber Continue Senna 8.6 mg 1 to 2 tablets QD PRN (8) Hyperkalemia: Code(s): E87.5 - Hyperkalemia Plan: Corrected - serum potassium level remained normal at 5.1 on her recent labs done in May 2023 Continue Patiromer 8.4 gm QD and Sodium polystyrene sulfonate 15 gm/60 ml every -- (9) Ganglion cyst of finger of left hand: Comment: Volar aspect of the DIP of the left middle finger. Code(s): M67.442 - Ganglion, left hand Plan: She was seen by orthopedics for this a few weeks ago and is now scheduled for surgical excision on 09/25/2023 (10) Allergic rhinitis: Code(s): J30.9 - Allergic rhinitis, unspecified Qualifiers: Allergic rhinitis seasonality: unspecified Allergic rhinitis trigger: unspecified Qualified Code(s): J30.9 - Allergic rhinitis, unspecified Plan: Continue OTC Loratadine 10 mg QD PRN or Cetirizine 10 mg QD PRN (11) Insomnia: Code(s): G47.00 - Insomnia, unspecified Qualifiers: Insomnia type: unspecified Qualified Code(s): G47.00 - Insomnia, unspecified Plan: Sleep hygiene reinforced Continue Trazodone 50 to 100 mg Q HS PRN (12) Anxiety and depression: Code(s): F41.9 - Anxiety disorder, unspecified; F32.9 - Major depressive disorder, single episode, unspecified Plan: Continue Mirtazapine 45 mg Q HS Follow up with psychiatry as scheduled Plan Flu vaccine given today Follow up in 4 months Coding Level of Care Code Est Pt Level 4 (52571) Diagnoses Type 2 diabetes mellitus with hyperglycemia, with long-term current use of insulin E11.65; Z79.4 Diabetes mellitus custodial insulin use: with custodial use Diabetes mellitus type: type 2 Chronic HFrEF (heart failure with reduced ejection fraction) I50.22 Non-ischemic cardiomyopathy I42.8 Benign essential hypertension I10 Pure hypercholesterolemia E78.00 Mild intermittent asthma without complication J45.20 Asthma complication type: uncomplicated Constipation, unspecified constipation type K59.00 Constipation type: unspecified constipation type Hyperkalemia E87.5 Ganglion cyst of finger of left hand M67.442 Allergic rhinitis, unspecified seasonality, unspecified trigger J30.9 Allergic rhinitis seasonality: unspecified Allergic rhinitis trigger: unspecified Insomnia, unspecified type G47.00 Insomnia type: unspecified Anxiety and depression F41.9; F32.9
[2023-08-08 15:49] VITALS: BP 110/60; PULSE 89; O2SAT 93; BMI 24.7
== END 2023-08-08 16:43 | disposition home or self-care (01) ==
PROVIDERS: PCP Internal Medicine; Visit Provider Internal Medicine
DX: Z23 Encounter for immunization (principal)
CPT/HCPCS: 90471; 90686; 99214

== ENCOUNTER 2023-08-27 14:35 | Outpatient (AMB) | payer MEDICARE, OTHER, SELFPAY ==
--- NOTE | 2023-08-27 14:36 | A.OFFVIS_ITS ---
Intake Vital Signs 08/27/23 14:37 Height 5 ft 3 in Weight 139 lb BMI 24.6 Intake Visit Reasons: O/V left MF cyst Intake Note: Phyllis 63 yr old female who was last seen on 06/24/23 with Yury Andres for Ganglion cyst located over the volar aspect of the DIP of the middle finger presents today to discuss surgery. Patient is diabetic, last A1C on her chart was taken 08/05/22 at 6.3. Allergies No Known Allergies Allergy (Verified 08/27/23 15:20) HPI O/V left MF cyst HPI Details Phyllis is a 63 year old right hand dominant Diabetic woman who presents to discuss treatment for her left middle finger mass. She complains of a painful mass on the dorsal aspect of the middle finger DIP joint. She says this has been present for ~1-2 months, she has been worried about movi ng her finger due to the pain. She says this is painful to perform daily activities, and she says putting gloves on is very painful for her. She is scheduled for a mass removal on 09/25/23. 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 She has a hx of breast cancer, and says she has CHF due to her Chemotherapy treatment [facility] Medical History Hyperkalemia Anxiety and depression Depression Anxiety Insomnia Mild intermittent asthma Pure hypercholesterolemia Benign essential hypertension Non-ischemic cardiomyopathy Chronic HFrEF (heart failure with reduced ejection fraction) Diabetes mellitus with hyperglycemia DM (diabetes mellitus) type II uncontrolled with eye manifestation Surgical History History of implantable cardiac defibrillator (ICD) History of radiation therapy History of reduction surgery of left breast History of removal of cyst History of lumpectomy of right breast Family History Father Medical history unknown Mother No problems noted. Social History Housing: House Alcohol intake: current Alcohol intake frequency: holidays/special occasions only Patient Tobacco Use Status: Former Tobacco user e-Cigarette/Vaping Use: Never Used Second Hand Smoke Exposure: Yes Substance Use Type: Marijuana service: No Current occupational status: disabled Cognitive needs: No Hearing needs: No Vision needs: Yes (glasses) Review of Systems Const All systems reviewed & are unremarkable except as noted in HPI and below Physical Exam Vital Signs: BMI result Body Mass Index 24.6 Const General: cooperative, healthy appearing and no acute distress Orientation/consciousness: patient oriented x3 HEENT Head: Yes normocephalic and Yes atraumatic Eyes EOM: EOMs intact bilaterally Resp Effort & Inspection: normal respiratory effort and able to speak in complete sen tences Cardio Jugular venous distension: no JVD Skin General skin exam: turgor normal Rashes: no rashes Neuro General: patient oriented x3 Extrem Other: Evaluation of Left Upper Extremity: The patient is alert, oriented, and in no acute distress Neuro: Median, Ulnar, Radial nerves motor and sensory intact and sensation is normal to the tips of all digits Vascular: Cap refill brisk ROM: She can make a fist and extend all her digits No locking or catching Skin: No lacerations or abrasions. General: No Ecchymosis. No Erythema or evidence of infection. There is a mass on the dorsal aspect of the middle finger DIP joint, measuring ~6-7mm in diameter. The mass appears to be consistent with a mucous cyst. No overlying skin changes She is wearing acrylic nails, and I cannot tell if there is a possible nail deformity Psych Appearance: grossly normal Affect: normal affect Attitude: cooperative Assessment & Plan Assessment & Plan (1) Ganglion cyst of finger of left hand: Comment: Dorsal aspect of the DIP of the left middle finger. Code(s): M67.442 - Ganglion, left hand Plan Assessment & Plan: 1. Left middle finger mass, likely mucous cyst Dorsal aspect of the DIP joint Measuring ~6-7mm in diameter I educated her about this condition I discussed operative and non-operative treatment options The patient would like to proceed with surgery The risks and benefits of operative treatment were discussed with the patient and the patient wishes to proceed with surgery. These risks include, but are not limited to risk of damage to blood vessels, nerves, tendons, infection, recurrence, incomplete relief of preoperative symptoms, persistent pain, possible need for further surgery and the risks associated with regional blocks and anesthesia. The plan is to take the patient to the operating room sometime in the next few weeks for the following procedures: 1. Left middle finger dorsal DIP joint mass excision, under local All of the preoperative paperwork including the consent was reviewed today. All the patient's questions were answered. The patient understands that they will be contacted by our senior scheduler soon to schedule this procedure She denies blood thinners, asthma, lung, kidney issues She is a Diabetic, her most recent HgA1c was 6.5% on 05/24/23 She reports having CHF, which she says was a side effect of chemotherapy treatment Scribed for Angelica Parkinson MD by Daniel Melendrez, medical registrar, on 08/27/23 at 3:40 PM, EST. Coding Level of Care Code New Pt Level 4 (33513) Diagnoses Ganglion cyst of finger of left hand M67.442
[2023-08-27 14:37] VITALS: BMI 24.6
== END 2023-08-27 16:02 | disposition home or self-care (01) ==
PROVIDERS: PCP Internal Medicine; Visit Provider Orthopaedic Surgery
DX: M67.442 Ganglion, left hand (principal)
CPT/HCPCS: 99214

== ENCOUNTER → 2023-08-27 14:35 | Outpatient (BNVA) | payer MEDICARE, OTHER, SELFPAY | PROVIDERS: PCP Internal Medicine; Visit Provider Orthopaedic Surgery | DX: M67.442 Ganglion, left hand (principal) | CPT/HCPCS: 99212 ==

== ENCOUNTER 2023-09-16 14:06 | Outpatient (REF) | payer MEDICARE, OTHER, SELFPAY ==
--- NOTE | ~2023-09-16 | XR_ITS ---
EXAMINATION: XR ELBOW, RIGHT CLINICAL INFORMATION: Elbow pain COMPARISON: None available. TECHNIQUE: AP, lateral, and oblique views of the right elbow. FINDINGS: No acute fracture or dislocation. Joint spaces are maintained. Soft tissues are unremarkable. No joint effusion. XR/XR elbow RT min 3V IMPRESSION: * No acute osseous abnormality.
== END 2023-09-16 14:07 | disposition home or self-care (01) ==
LOC: HO.XRAY 14:06
PROVIDERS: PCP Internal Medicine; Visit Provider Internal Medicine
DX: M25.521 Pain in right elbow (principal)
CPT/HCPCS: 73080

== ENCOUNTER 2023-09-25 09:49 | Day surgery (SDC) | payer MEDICARE, OTHER, SELFPAY ==
--- NOTE | 2023-09-25 09:11 | P.OP_ITS ---
Operative Note Operative Note Date of Service: 09/25/23 Narrative: Operative Note Preop diagnosis: 1. 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 same Procedure: 1. Left middle finger mucous cyst excision 2. Left middle finger DIP joint arthrotomy and excision of osteophytes. Surgeon: Angelica Parkinson MD Anesthesia: Digital block using 1% lidocaine with epinephrine Findings: mucous cyst EBL: Less than 5 mL Tourniquet time: None Specimens: None Complications: None Disposition: Brought to recovery room in stable condition Plan: Follow-up for 7-10 days for wound check and suture removal Indications: The patient is 63 years old, with left middle finger D IP joint osteoarthritis and a mucous cyst that has been unresponsive to nonoperative management. The risks and benefits of operative treatment includ ing but not limited to risk of damage to blood vessels, nerves, tendons, infection, persistent pain, persistent symptoms, recurrence or possible need for additional surgery were discussed with the patient and the patient wishes to proceed with surgery. Procedure: Once consent was obtained a digital block was performed in the preop area using a combination of 1% lidocaine with epinephrine. The patient was then brought back to the operating suite and placed on the operative table in supine position. A tourniquet was applied to the proximal aspect of the left upper extremity and the limb was prepped and draped in a standard surgical fashion. Once assured that we had a good block, an L-shaped incision was made over the dorsal aspect of the left middle finger distal phalanx. The incision was made through the skin to the subcutaneous tissues using a #15 blade. Careful dissection was made down to the level of the mucous cyst and extensor mechanism using iris scissors. The cyst was filled with clear viscous fluid consistent with a ganglion. It was dissected free from the surrounding tissues including the extensor mechanism and removed from the finger. An arthrotomy was performed on the radial side of the extensor mechanism at the D IP joint. The a small periarticular osteophyte was excised using a rongeur. Once satisfied, the wound was copiously irrigated with normal saline and hemostasis was obtained with a brief period of local pressure. The skin edges were reapproximated with some 5.0 Prolene suture material and a sterile dressing was applied. The patient appears to have tolerated the procedure well and with no complications. All digits were well vascularized at the conclusion of the case.
[2023-09-25 10:49] VITALS: BMI 24.3
--- NOTE | 2023-09-25 11:43 | MHC.SHP ---
Pre-Procedural Eval Section A - 24 Hr Update-Section A only Date of Service: 09/25/23 The patient is an INPATIENT: No Changes since office visit: No Cold of Flu in the past 2 weeks, No New Medical Problems, No Changes in Medication and No Patient answered all questions The patient has been examined within 24 hours of the surgical procedure. The History & Physical has been completed within 30 days and I have reviewed it.: Yes Section B - Complete if H&P > 30 days Chief Complaint: Ganglion, left hand Allergies: Allergies Allergy/AdvReac Type Severity Reaction Status Date / Time No Known Allergies Allergy Verified 08/27/23 15:20 Plan I have reviewed the history and physical and performed a pertinent physical examination on my patient. No changes have occurred unless specified. Time Spent With Patient Time: Total time managing care of this patient today ____ minutes.
[2023-09-25 13:29] VITALS: BP 154/69; PULSE 62; RESP 16; O2SAT 97
== END 2023-09-25 13:20 | disposition home or self-care (01) ==
PROVIDERS: PCP Internal Medicine; Visit Provider Orthopaedic Surgery
PROC: (CPT 26160; principal; 2023-09-25 12:20)
DX: M67.442 Ganglion, left hand (principal); M19.042 Primary osteoarthritis, left hand
CPT/HCPCS: 26160; 88304; J0171

== ENCOUNTER → 2023-09-25 09:49 | Outpatient (BNV) | payer MEDICARE, OTHER, SELFPAY | PROVIDERS: PCP Internal Medicine; Visit Provider Orthopaedic Surgery | DX: M67.442 Ganglion, left hand (principal) | CPT/HCPCS: 26160 ==

== ENCOUNTER 2023-10-08 13:39 | Outpatient (AMB) | payer MEDICARE, OTHER, SELFPAY ==
[2023-10-08 13:50] VITALS: BMI 24.3
--- NOTE | 2023-10-08 13:50 | A.OFFVIS_ITS ---
Intake Vital Signs 10/08/23 13:50 Height 5 ft 3 in Weight 137 lb BMI 24.3 Intake Visit Reasons: PO Lt MF cyst excision 09/25/23 AR Intake Note: Phyllis 63 yr old female presents today for her P/O visit for her left MF cyst excision from 09/25/23. States she has mild pain and swelling at her PIP joint and is working on making a fist. Allergies No Known Allergies Allergy (Verified 10/08/23 13:56) HPI PO Lt MF cyst excision 09/25/23 AR HPI Details Phyllis is a 63 year old right hand dominant Diabetic woman who returns S/P left middle finger mucous cyst excision, DIP joint arthrotomy, & excision of osteophytes, DOS: 09/25/23. She says she is doing well. She has been working on making a fist. She is happy with the results of her surgery. She works in a lunchroom. She has a hx of breast cancer, and says she has CHF due to her Chemotherapy treatment [facility] Medical History (Updated 09/25/23 @ 10:49 by Nissa Melo RN) Cardiac defibrillator in place Hyperkalemia Anxiety and depression Depression Anxiety Insomnia Mild intermittent asthma Pure hypercholesterolemia Benign essential hypertension Non-ischemic cardiomyopathy Chronic HFrEF (heart failure with reduced ejection fraction) Diabetes mellitus with hyperglycemia DM (diabetes mellitus) type II uncontrolled with eye manifestation Surgical History History of implantable cardiac defibrillator (ICD) History of radiation therapy History of reduction surgery of left breast History of removal of cyst History of lumpectomy of right breast Family History Father Medical history unknown Mother No problems noted. Social History Housing: House Alcohol intake: current Alcohol intake frequency: holidays/special occasions on ly Patient Tobacco Use Status: Former Tobacco user e-Cigarette/Vaping Use: Never Used Second Hand Smoke Exposure: Yes Substance Use Type: Marijuana service: No Current occupational status: disabled Cognitive needs: No Hearing needs: No Vision needs: Yes (glasses) Review of Systems Const All systems reviewed & are unremarkable except as noted in HPI and below Physical Exam Vital Signs: BMI result Body Mass Index 24.3 Const General: no acute distress and alert Orientation/consciousness: patient oriented x3 Neuro General: patient oriented x3 Extrem Other: The patient was alert oriented and in no acute distress The incision is healing well with no erythema drainage or evidence of infection. Sutures removed and Steri-Strips applied She can make a fist and extend all her digits Sensation is intact Cap refill is brisk Pathology report: 09/25/23 Diagnosis Soft tissue, left middle finger, cyst, excision: Fragment of benign fibrovascular tissue with benign skin adnexal glands and focal possible myxoid degeneration (see comment). Comment: No cyst is identified. The tissue may be adjacent to a ganglion cyst Psych Appearance: grossly normal Affect: normal affect Attitude: cooperative Assessment & Plan Assessment & Plan (1) Ganglion cyst of finger of left hand: Comment: Dorsal aspect of the DIP of the left middle finger. Code(s): M67.442 - Ganglion, left hand Plan Assessment & Plan: 1. Left middle finger mass, S/P excision DOS: 09/25/23 2. Left middle finger DIP joint arthritis, S/P DIP joint arthrotomy, & excision of osteophytes, DOS: 09/25/23 The patient appears to be doing well post-operatively I educated her about the post-operative course I explained the signs and symptoms of infection I discussed activity modifications, she is to lift nothing heavier than a cellphone for the next two weeks She will perform gentle ROM exercises at home She works in a lunchroom, she says she has already returned to work on light duty, working the [employer]. I discussed the importance of keeping her incision clean and covered especially while at work for the next two weeks. She can follow up prn Scribed for Angelica Parkinson MD by Daniel Melendrez, medical insurance claims processor, on 10/08/23 at 2:00 PM, EST. Coding Level of Care Code Global (30119) Diagnoses Ganglion cyst of finger of left hand M67.442
== END 2023-10-08 14:10 | disposition home or self-care (01) ==
PROVIDERS: PCP Internal Medicine; Visit Provider Orthopaedic Surgery
DX: M67.442 Ganglion, left hand (principal)
CPT/HCPCS: 99024

== ENCOUNTER → 2023-10-08 13:39 | Outpatient (BNVA) | payer MEDICARE, OTHER, SELFPAY | PROVIDERS: PCP Internal Medicine; Visit Provider Orthopaedic Surgery | DX: M67.442 Ganglion, left hand (principal) | CPT/HCPCS: 99212 ==

== ENCOUNTER 2024-04-07 17:06 | Outpatient (AMB) | payer MEDICARE, OTHER, SELFPAY ==
--- NOTE | 2024-04-07 16:36 | MHC.PC.OV ---
Vital Signs 04/07/24 17:09 Height 5 ft 3 in Weight 142 lb BMI 25.2 BP 128/70 Blood Pressure Location Lt brachial Position Sitting Pulse 80 Pulse Source Pulse Oximeter Pulse Oximetry (%) 96 Oxygen Delivery Method Room Air Intake Visit Reasons: Hyperlipidemia Retail Field Merchandiser Required: No Accompanied by: Self / Same As Patient Allergies No Known Allergies Allergy (Verified 04/07/24 17:24) Medication List - Last Reconciled 04/07/24 by Arthur Pro MD albuterol sulfate 90 mcg/actuation (ProAir HFA) 2 puffs inhalation Q6H PRN 30 days amlodipine 5 mg PO DAILY aspirin 81 mg PO DAILY atorvastatin 10 mg PO BEDTIME 90 days [BD Ultra Fine Micro Pen Needle 32 gauge x Use as directed] dulaglutide 1.5 mg (0.5 mL) subcut QWEEK 3 months escitalopram oxalate 5 mg PO DAILY 30 days estradiol 0.01%(0.1mg/gram) vaginal flash glucose scanning reader (JanrainStyle Zoila 14 Day [place]) As directed flash glucose sensor (JanrainStyle Zoila 14 Day Sensor kit) As directed fluticasone propionate 220 mcg/actuation (Flovent HFA) 2 puffs inhalation BID fluticasone propionate 50 mcg/actuation 1 spray intranasal BID furosemide 40 mg Q AM and 20 mg Q PM PO; glipizide 5 mg PO DAILY insulin glargine (Lantus Solostar U-100 Insulin) 10 units (0.1 mL) subcut QPM metoprolol succinate ER 12.5 mg PO DAILY mirtazapine 45 mg PO BEDTIME 90 days oxycodone-acetaminophen 5-325 mg 1 tab PO Q6H PRN pen needle, diabetic (BD Jen 2nd Gen Pen Needle) USE DIRECTED sacubitril-valsartan 97-103 mg (Entresto) 1 tab PO BID semaglutide (Ozempic) 1 mg (0.75 mL) subcut QWEEK 4 weeks spironolactone 25 mg PO DAILY trazodone 100 mg PO BEDTIME PRN 90 days Tobacco use date assessed: 08/08/23 Dental Screening Dental Screen Date: 08/08/23 HPI Hyperlipidemia HPI Details Patient comes in today for her follow up visit - she was last seen in July 2023 States that she missed her appointment in the spring (2023) due to some misunderstanding and miscommunication She also underwent successful surgical excision of the ganglion cyst on her left finger back in September 2023 States that she currently feels okay She denies any headaches or dizziness Denies any chest pains, no SOB No nausea/vomiting, no abdominal pain No change in bowel habits noted Needs a few of her Rx refilled She did not have any follow up labs done recently - all of her labs done were done back in May 2023 [facility] Medical History Cardiac defibrillator in place Hyperkalemia Anxiety and depression Depression Anxiety Insomnia Mild intermittent asthma Pure hypercholesterolemia Benign essential hypertension Non-ischemic cardiomyopathy Chronic HFrEF (heart failure with reduced ejection fraction) Diabetes mellitus with hyperglycemia DM (diabetes mellitus) type II uncontrolled with eye manifestation Surgical History History of implantable cardiac defibrillator (ICD) History of radiation therapy History of reduction surgery of left breast History of removal of cyst History of lumpectomy of right breast Family History Father Medical history unknown Mother No problems noted. Social History Housing: House Alcohol intake: current Alcohol intake frequency: holidays/special occasions only Patient Tobacco Use Status: Former Tobacco user e-Cigarette/Vaping Use: Never Used Second Hand Smoke Exposure: Yes Substance Use Type: Marijuana service: No Current occupational status: disabled Cognitive needs: No Hearing needs: No Vision needs: Yes (glasses) Questionnaire Thrive Questionnaire Date Thrive assessed: 08/08/23 VINAY-7 AMB Questionnaire VINAY-7 Date VINAY - 7 assessed: 08/08/23 Source: Developed by Drs. Quinn Nieves, Evangelina White, Uzair Beard and colleagues, with an educational antonietta from [employer]. Review of Systems Const Denies chills, Reports difficulty sleeping, Denies fatigue, Denies fever(s) and Denies headache(s) ENT Denies dysphagia, Denies dizziness, Denies otalgia, Denies headache(s), Denies neck pain, Denies odynophagia and Denies sore throat Card Denies chest pain, Denies palpitations and Denies dyspnea Resp Denies chest congestion, Denies cough and Denies dyspnea GI Denies abdominal pain, Denies constipation, Denies dysphagia, Denies heartburn, Denies diarrhea, Denies nausea, Denies odynophagia and Denies vomiting Denies difficulty voiding, Denies nocturia, Denies dysuria and Denies urinary urgency Musc Denies back pain and Denies neck pain Skin/Breast Denies rash Neuro Denies dizziness and Denies headache(s) Psych Reports anxiety (better controlled ) and Reports depression (better controlled ) Endo Denies fatigue and Denies palpitations Physical exam (Primary Care) Vital Signs: Last Vital Signs Pulse 80 04/07/24 17:09 BP 128/70 04/07/24 17:09 Pulse Ox 96 04/07/24 17:09 Oxygen Delivery Method Room Air 04/07/24 17:09 BMI result Body Mass Index 25.2 Tobacco/Smoking Status: Tobacco use Status Tobacco use date assessed 08/08/23 04/07/24 16:36 Patient Tobacco Use Status Former Tobacco user 04/07/24 16:36 e-Cigarette/Vaping Use Never Used 04/07/24 16:36 Thrive Assessment: Date of Thrive Assessment Date Thrive assessed 08/08/23 04/07/24 16:36 Const General: no acute distress and alert HENMT Ears: TM's normal bilaterally and EAC's normal Throat: Yes posterior oropharynx normal and Yes tonsils normal (no TP congestion noted) Neck Neck: Yes no lymphadenopathy and Yes supple Thyroid: Thyroid normal Resp Auscultation: clear to auscultation bilaterally, no rales and no wheezes Cardio Rate: regular rate Rhythm: regular rhythm Heart sounds: no murmurs GI Palpation (GI): Soft to palpation and nontender Auscultation: normal bowel sounds General: Yes no CVA tenderness Back/Spine/Pelvis Back: no CVA tenderness Thoracic/Lumbar Spine: No lumbar spinal tenderness Skin Rashes: no rashes Extrem General: Yes no clubbing, cyanosis or edema Results AMB Hemoglobin A1c AMB Hemoglobin A1c 7.7 % Last Edit by JAG Patiño on 04/07/24 17:26 Results Reviewed Results Reviewed: Laboratory Last Values Hgb A1c (Clinic) 7.7 % (4.0-6.0) H 04/07/24 17:10 Assessment and Plan Assessment & Plan (1) Diabetes mellitus with hyperglycemia: Code(s): E11.65 - Type 2 diabetes mellitus with hyperglycemia Qualifiers: Diabetes mellitus snf insulin use: with snf use Diabetes mellitus type: type 2 Qualified Code(s): E11.65 - Type 2 diabetes mellitus with hyperglycemia; Z79.4 - senior care (current) use of insulin Plan: Her in-office HgbA1c done today is at 7.7% (her HgbA1c was at 6.5% on her labs done previously in May 2023) - goal is at least < 7.0% Reinforced diabetic diet - patient admits to poor compliance with her diet over the summer as 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) but she is now back on track with her diet and working regular hours again Continue Glipizide ER 2.5 mg QD, Lantus Solostar 10 units Q HS and Trulicity 1.5 mg SQ once a week for now - she was also OFF Trulicity for a while this past spring/summer when she could not get her Rx filled at her pharmacy due to unavailability (2) Chronic HFrEF (heart failure with reduced ejection fraction): Comment: Chronic, compensated, NYHA class 3 stage C Has ICD for primary prevention Code(s): I50.22 - Chronic systolic (congestive) heart failure Plan: She appears compensated cardiac-harrington Reinforced fluid restriction Continue Furosemide 40 mg Q AM and 20 mg Q PM, Entresto 97-103 mg BID and Ivabradine 5 mg BID (is on Ivabradine for sinus tachycardia in the setting of NYHA class 3 HF and high resting HR despite being on maximally tolerated BB - higher dose BB resulted in severe depression) Follow up with cardiology at [facility] as scheduled (3) Non-ischemic cardiomyopathy: Comment: Presumed etiology of her cardiomyopathy are either hypertension or related to her chemoradiation therapy for breast cancer years ago Code(s): I42.8 - Other cardiomyopathies Plan: Continue Metoprolol ER 12.5 mg QD and Aspirin 81 mg QD Follow up with cardiology at [facility] as scheduled (4) Benign essential hypertension: Code(s): I10 - Essential (primary) hypertension Plan: Reinforced low sodium diet - goal is systolic BP of 120 mm or less Continue Metoprolol ER 12.5 mg QD and Amlodipine 5 mg QD (5) Pure hypercholesterolemia: Code(s): E78.00 - Pure hypercholesterolemia, unspecified Plan: She was not able to get her follow up labs done recently Reinforced low cholesterol diet Continue Pravastatin 20 mg QD Will recheck her labs and fasting lipids in 4 month for follow up (6) Mild intermittent asthma: Code(s): J45.20 - Mild intermittent asthma, uncomplicated Qualifiers: Asthma complication type: uncomplicated Qualified Code(s): J45.20 - Mild intermittent asthma, uncomplicated Plan: Stable Contnue Flovent HFA 220 mcg 1 inhalation BID and ProAir HFA 2 inhalations every 6 hours as needed (7) Constipation: Code(s): K59.00 - Constipation, unspecified Qualifiers: Constipation type: unspecified constipation type Qualified Code(s): K59.00 - Constipation, unspecified Plan: She is encouraged again on increased oral fluids and dietary fiber Continue Senna 8.6 mg 1 to 2 tablets QD PRN (8) Hyperkalemia: Code(s): E87.5 - Hyperkalemia Plan: Her serum potassium level was normal at 5.1 when her labs were last done in May 2023 Continue Patiromer 8.4 gm QD and Sodium polystyrene sulfonate 15 gm/60 ml every -- (9) Ganglion cyst of finger of left hand: Comment: Dorsal aspect of the DIP of the left middle finger. Code(s): M67.442 - Ganglion, left hand Plan: Resolved - S/P surgical excision by orthopedics back on 09/25/2023 (10) Allergic rhinitis: Code(s): J30.9 - Allergic rhinitis, unspecified Qualifiers: Allergic rhinitis seasonality: unspecified Allergic rhinitis trigger: unspecified Qualified Code(s): J30.9 - Allergic rhinitis, unspecified Plan: Continue OTC Loratadine 10 mg QD PRN or Cetirizine 10 mg QD PRN Fluticasone 50 mcg nasal spray QD PRN helps as well (11) Insomnia: Code(s): G47.00 - Insomnia, unspecified Qualifiers: Insomnia type: unspecified Qualified Code(s): G47.00 - Insomnia, unspecified Plan: Sleep hygiene reinforced Continue Trazodone 50 to 100 mg Q HS PRN (12) Anxiety and depression: Code(s): F41.9 - Anxiety disorder, unspecified; F32.9 - Major depressive disorder, single episode, unspecified Plan: Continue Mirtazapine 45 mg Q HS - Rx refilled Follow up with psychiatry as scheduled Plan Follow up in 4 months Orders: Orders Microalbumin, Random (w Creat) 4 Months E11.9 - Type 2 diabetes mellitus without complications TSH reflex Free T4 4 Months E78.00 - Pure hypercholesterolemia, unspecified UA CC w/rflx Micro + Cult 4 Months R30.0 - Dysuria Vitamin B12 and Folate 4 Months E53.8 - Deficiency of other specified B group vitamins B Type Natriuretic Peptide 4 Months I50.9 - Heart failure, unspecified AMB Hemoglobin A1c Today E11.65 - Type 2 diabetes mellitus with hyperglycemia, Z79.4 - senior care (current) use of insulin Complete Blood Count Auto Diff 4 Months D64.9 - Anemia, unspecified Comprehensive [place]. Panel Fast 4 Months E78.00 - Pure hypercholesterolemia, unspecified Lipid Panel 4 Months E78.00 - Pure hypercholesterolemia, unspecified Hemoglobin A1c 4 Months E11.9 - Type 2 diabetes mellitus without complications Vitamin D 25-OH Total 4 Months E55.9 - Vitamin D deficiency, unspecified Medications: New ivabradine must administer with a meal/food 5 mg PO BID 90 days 180 tabs 1RF Changed From glipizide 5 mg PO DAILY 90 tabs 0RF To glipizide 5 mg PO DAILY 90 days 90 tabs 1RF From metoprolol succinate ER 12.5 mg PO DAILY To metoprolol succinate ER 12.5 mg (1/2 x 25 mg) PO DAILY 90 days 45 tabs 1RF Refilled mirtazapine 45 mg PO BEDTIME 90 days 90 tabs 1RF atorvastatin 10 mg PO BEDTIME 90 days 90 tabs 1RF Discontinued semaglutide (Ozempic) Discontinued Reason: Doctor's Order 1 mg (0.75 mL) subcut QWEEK 4 weeks 3 mL 1RF Resumed dulaglutide 1.5 mg (0.5 mL) subcut QWEEK 3 months 6.5 mL 3RF E11.65 - Type 2 diabetes mellitus with hyperglycemia Coding Level of Care Code Est Pt Level 4 (66011) Complex EM visit Add On G2211 Diagnoses Type 2 diabetes mellitus with hyperglycemia, with long-term current use of insulin E11.65; Z79.4 Diabetes mellitus snf insulin use: with termite exterminator use Diabetes mellitus type: type 2 Chronic HFrEF (heart failure with reduced ejection fraction) I50.22 Non-ischemic cardiomyopathy I42.8 Benign essential hypertension I10 Pure hypercholesterolemia E78.00 Mild intermittent asthma without complication J45.20 Asthma complication type: uncomplicated Constipation, unspecified constipation type K59.00 Constipation type: unspecified constipation type Hyperkalemia E87.5 Ganglion cyst of finger of left hand M67.442 Allergic rhinitis, unspecified seasonality, unspecified trigger J30.9 Allergic rhinitis seasonality: unspecified Allergic rhinitis trigger: unspecified Insomnia, unspecified type G47.00 Insomnia type: unspecified Anxiety and depression F41.9; F32.9
[2024-04-07 17:09] VITALS: BP 128/70; PULSE 80; O2SAT 96; BMI 25.2
== END 2024-04-07 17:38 | disposition home or self-care (01) ==
PROVIDERS: PCP Internal Medicine; Visit Provider Internal Medicine
DX: E11.65 Type 2 diabetes mellitus with hyperglycemia (principal); Z79.4 Long term (current) use of insulin; I50.22 Chronic systolic (congestive) heart failure; I42.8 Other cardiomyopathies; I10 Essential (primary) hypertension; E78.00 Pure hypercholesterolemia, unspecified; J45.20 Mild intermittent asthma, uncomplicated; K59.00 Constipation, unspecified; E87.5 Hyperkalemia; M67.442 Ganglion, left hand; J30.9 Allergic rhinitis, unspecified; G47.00 Insomnia, unspecified; F41.9 Anxiety disorder, unspecified; F32.9 Major depressive disorder, single episode, unspecified

== ENCOUNTER → 2024-04-07 17:06 | Outpatient (BNVA) | payer MEDICARE, OTHER, SELFPAY | PROVIDERS: PCP Internal Medicine; Visit Provider Internal Medicine | DX: E11.65 Type 2 diabetes mellitus with hyperglycemia (principal); E78.5 Hyperlipidemia, unspecified; I50.22 Chronic systolic (congestive) heart failure; I42.8 Other cardiomyopathies; Z79.4 Long term (current) use of insulin | CPT/HCPCS: 83036; 99212 ==

== ENCOUNTER 2024-08-20 15:55 | Outpatient (AMB) | payer MEDICARE, OTHER, SELFPAY ==
[2024-08-20 16:04] VITALS: BP 122/80; PULSE 75; O2SAT 95; BMI 24.9
--- NOTE | 2024-08-20 16:04 | MHC.PC.OV ---
Vital Signs 08/20/24 16:04 Height 5 ft 3 in Weight 140 lb 6 oz BMI 24.9 BP 122/80 Blood Pressure Location Lt brachial Position Sitting Pulse 75 Pulse Source Pulse Oximeter Pulse Oximetry (%) 95 Oxygen Delivery Method Room Air Intake Visit Reasons: 4 months Wellness Manager Required: No Accompanied by: Self / Same As Patient Allergies No Known Allergies Allergy (Verified 08/20/24 16:41) Medication List - Last Reconciled 08/20/24 by Arthur Pro MD albuterol sulfate 90 mcg/actuation (ProAir HFA) 2 puffs inhalation Q6H PRN 30 days amlodipine 5 mg PO DAILY aspirin 81 mg PO DAILY atorvastatin 10 mg PO BEDTIME 90 days [BD Ultra Fine Micro Pen Needle 32 gauge x Use as directed] dulaglutide 1.5 mg (0.5 mL) subcut QWEEK 3 months escitalopram oxalate 5 mg PO DAILY 30 days estradiol 0.01%(0.1mg/gram) vaginal flash glucose scanning reader (tribrStyle Zoila 14 Day [place]) As directed flash glucose sensor (tribrStyle Zoila 14 Day Sensor kit) As directed fluticasone propionate 220 mcg/actuation (Flovent HFA) 2 puffs inhalation BID fluticasone propionate 50 mcg/actuation 1 spray intranasal BID furosemide 40 mg Q AM and 20 mg Q PM PO; glipizide 5 mg PO DAILY 90 days insulin glargine (Lantus Solostar U-100 Insulin) 10 units (0.1 mL) subcut QPM ivabradine 5 mg PO BID 90 days metoprolol succinate ER 12.5 mg (1/2 x 25 mg) PO DAILY 90 days mirtazapine 45 mg PO BEDTIME 90 days oxycodone-acetaminophen 5-325 mg 1 tab PO Q6H PRN pen needle, diabetic (BD Jen 2nd Gen Pen Needle) USE DIRECTED sacubitril-valsartan 97-103 mg (Entresto) 1 tab PO BID spironolactone 25 mg PO DAILY trazodone 100 mg PO BEDTIME PRN 90 days Tobacco use date assessed: 08/20/24 Fall risk assessment: No Falls in past year Last assessed Fall Risk: 08/20/24 Dental Screening Dental Screen Date: 08/20/24 Did you have a dental visit in the last 12 months?: No Did you have a dental problem in the last 6 months where you did not have access to dental care?: No Was dental information given to patient?: No HPI 4 months HPI Details Patient comes in today for her follow up visit States that she has been sick for about a week now, with increased cough/congestion and sore throat She has been taking a lot of cough drops lately and is concerned that these could be making her blood sugar go up higher She denies any fever; denies any increased SOB but states that she's had to use her rescue inhaler more often than usual due to her chest feeling congested often lately States that she will need her inhalers Rx refilled Denies any headaches or dizziness No nausea/vomiting, no abdominal pain No change in bowel habits noted She was not able to get her follow up labs done prior to her appointment today [facility] Medical History Cardiac defibrillator in place Hyperkalemia Anxiety and depression Depression Anxiety Insomnia Mild intermittent asthma Pure hypercholesterolemia Benign essential hypertension Non-ischemic cardiomyopathy Chronic HFrEF (heart failure with reduced ejection fraction) Diabetes mellitus with hyperglycemia DM (diabetes mellitus) type II uncontrolled with eye manifestation Surgical History History of implantable cardiac defibrillator (ICD) History of radiation therapy History of reduction surgery of left breast History of removal of cyst History of lumpectomy of right breast Family History Father Medical history unknown Mother No problems noted. Social History Housing: House Alcohol intake: current Alcohol intake frequency: holidays/special occasions only Patient Tobacco Use Status: Former Tobacco user e-Cigarette/Vaping Use: Never Used Second Hand Smoke Exposure: Yes Substance Use Type: Marijuana service: No Current occupational status: disabled Cognitive needs: No Hearing needs: No Vision needs: Yes (glasses) Questionnaire PHQ-9 Over the last 2 weeks, how often have you been bothered by any of the following problems? 1. Little interest or pleasure in doing things: several days 2. Feeling down, depressed, or hopeless: several days 3. Trouble falling or staying asleep, or sleeping too much: nearly every day 4. Feeling tired or having little energy: nearly every day 5. Poor appetite or overeating: more than half the days 6. Feeling bad about yourself - or that you are a failure or have let yourself or your family down: not at all 7. Trouble concentrating on things, such as reading the newspaper or watching television: not at all 8. Moving or speaking so slowly that other people could have noticed. Or the opposite - being so fidgety or restless that you have been moving around a lot more than usual: not at all 9. Thoughts that you would be better off or of hurting yourself in some way: not at all Total score: 10 Depression Screening Interpretation: Positive Depression Screening Follow-up: Existing condition and In treatment Depression Screening Done: Yes 28197 - PHQ-9 Billing: Yes Source: Developed by Drs. Quinn Nieves, Evangelina White, Uzair Beard and colleagues, with an educational antonietta from [employer]. Thrive Questionnaire Date Thrive assessed: 08/20/24 I am a: Patient What is your living situation today?: I have a steady place to live Within the past 12 months, did the food you bought not last and you didn't have the money to get more?: Never true Within the past 12 months, did you worry whether your food would run out before you got money to buy more?: Never true Do you have trouble paying for medicines?: No Do you have trouble getting transportation to medical appointments?: No Do you have trouble paying your heating and electricity bill?: No Do you have trouble taking care of your child, family member or friend?: No Do you have trouble with day-to-day activities such as bathing, preparing meals, shopping, managing finances, etc.?: No Are you currently unemployed and looking for a job?: No Are you interested in more education?: No Please select the resources that you would like help with: None Currently or been in a relationship where the following occur: No concerns reported THRIVE Score: 0 AUDIT C Alcohol Use Questionnaire (AUDIT-C) 1. How often do you have a drink containing alcohol?: Never 3. How often do you have six or more drinks on one occasion?: Never Total Score: 0 Score Reviewed/Action Taken: Yes VINAY-7 AMB Questionnaire VINAY-7 Date VINAY - 7 assessed: 08/20/24 Feeling nervous, anxious, or on edge: 0 = Not at all Not being able to stop or control worryin = Not at all Worrying too much about different things: 0 = Not at all Trouble relaxin = Not at all Being so restless that it is hard to sit still: 0 = Not at all Becoming easily annoyed or irritable: 0 = Not at all Feeling afraid as if something awful might happen: 0 = Not at all Total VINAY-7 score (0-4 normal; 5-9 mild; 10-14 moderate; 15-21 severe): 0 Source: Developed by Drs. Quinn Nieves, Evangelina White, Uzair Beard and colleagues, with an educational antonietta from [employer]. Review of Systems Const Denies chills, Reports difficulty sleeping, Reports fatigue, Denies fever(s) and Denies headache(s) ENT Denies dysphagia, Denies dizziness, Denies otalgia, Denies headache(s), Reports nasal congestion, Denies neck pain, Denies odynophagia and Reports sore throat Card Denies chest pain, Denies palpitations and Denies dyspnea Resp Reports chest congestion, Reports cough, Denies dyspnea and Denies wheezing GI Denies abdominal pain, Denies constipation, Denies dysphagia, Denies heartburn, Denies diarrhea, Denies nausea, Denies odynophagia and Denies vomiting Denies difficulty voiding, Denies nocturia, Denies dysuria and Denies urinary urgency Musc Denies back pain and Denies neck pain Skin/Breast Denies rash Neuro Denies dizziness and Denies headache(s) Psych Reports anxiety (better controlled ) and Reports depression (better controlled ) Endo Reports fatigue and Denies palpitations Aller/Immun Denies wheezing Physical exam (Primary Care) Vital Signs: Last Vital Signs Pulse 75 08/20/24 16:04 BP 122/80 08/20/24 16:04 Pulse Ox 95 08/20/24 16:04 Oxygen Delivery Method Room Air 08/20/24 16:04 BMI result Body Mass Index 24.9 Tobacco/Smoking Status: Tobacco use Status Tobacco use date assessed 08/20/24 08/20/24 16:07 Patient Tobacco Use Status Former Tobacco user 08/20/24 16:07 e-Cigarette/Vaping Use Never Used 08/20/24 16:07 PHQ-9: PHQ-9 Score PHQ-9: Total score 10 08/20/24 16:44 Depression Screening Interpretation: Positive Depression Screening Follow-up: Existing condition and In treatment Thrive Assessment: Date of Thrive Assessment Date Thrive assessed 08/20/24 08/20/24 16:07 Currently or been in a relationship where the following occur: No concerns reported Const General: no acute distress and alert HENMT Ears: TM's normal bilaterally and EAC's normal Throat: Yes tonsils normal (no TP congestion noted) and Yes posterior oropharynx abnormal (increased erythema) Neck Neck: Yes supple and No lymphadenopathy Thyroid: Thyroid normal Resp Auscultation: no crackles, no rales, rhonchi (scattered) throughout, no wheezes and diminished lung sounds (slightly) bilateral Cardio Rate: regular rate Rhythm: regular rhythm Heart sounds: no murmurs GI Palpation (GI): Soft to palpation and nontender Auscultation: normal bowel sounds General: Yes no CVA tenderness Back/Spine/Pelvis Back: no CVA tenderness Thoracic/Lumbar Spine: No lumbar spinal tenderness Skin Rashes: no rashes Extrem General: Yes no clubbing, cyanosis or edema Coding Level of Care Code Est Pt Level 4 (44822) Diagnoses Moderate persistent asthma with exacerbation J45.41 Asthma severity: moderate Asthma persistence: persistent Type 2 diabetes mellitus with hyperglycemia, with long-term current use of insulin E11.65; Z79.4 Diabetes mellitus type: type 2 Diabetes mellitus skilled nursing insulin use: with terminal block assembler use Chronic HFrEF (heart failure with reduced ejection fraction) I50.22 Non-ischemic cardiomyopathy I42.8 Benign essential hypertension I10 Pure hypercholesterolemia E78.00 Constipation, unspecified constipation type K59.00 Constipation type: unspecified constipation type Hyperkalemia E87.5 Allergic rhinitis, unspecified seasonality, unspecified trigger J30.9 Allergic rhinitis trigger: unspecified Allergic rhinitis seasonality: unspecified Insomnia, unspecified type G47.00 Insomnia type: unspecified Anxiety and depression F41.9; F32.9 Additional Codes PHQ-9 - 80309 - PHQ-9 Billing: Yes ([id number]) Assessment & Plan Assessment & Plan (1) Asthma exacerbation: Code(s): J45.901 - Unspecified asthma with (acute) exacerbation Category: Medical Qualifiers: Asthma severity: moderate Asthma persistence: persistent Qualified Code(s): J45.41 - Moderate persistent asthma with (acute) exacerbation Plan: Will start patient on Azithromycin QD x 5 days Continue Flovent HFA 220 mcg 1 inhalation BID and ProAir HFA 2 inhalations every 6 hours as needed - Rx refilled Will also have her go and get tested for influenza, COVID and RSV OSWALDO (2) Diabetes mellitus with hyperglycemia: Code(s): E11.65 - Type 2 diabetes mellitus with hyperglycemia Category: Medical Qualifiers: Diabetes mellitus type: type 2 Diabetes mellitus skilled nursing insulin use: with skilled nursing use Qualified Code(s): E11.65 - Type 2 diabetes mellitus with hyperglycemia; Z79.4 - USP (current) use of insulin Plan: Her in-office HgbA1c was at 7.7% a few months ago - goal is at least < 7.0% Reinforced diabetic diet Continue Glipizide ER 2.5 mg QD, Lantus Solostar 10 units Q HS and Trulicity 1.5 mg SQ once a week for now Patient states that she will get her follow up labs done OSWALDO (3) Chronic HFrEF (heart failure with reduced ejection fraction): Comment: Chronic, compensated, NYHA class 3 stage C Has ICD for primary prevention Code(s): I50.22 - Chronic systolic (congestive) heart failure Category: Medical Plan: She appears compensated cardiac-harrington Reinforced fluid restriction Continue Furosemide 40 mg Q AM and 20 mg Q PM, Entresto 97-103 mg BID and Ivabradine 5 mg BID (is on Ivabradine for sinus tachycardia in the setting of NYHA class 3 HF and high resting HR despite being on maximally tolerated BB - higher dose BB resulted in severe depression) Follow up with cardiology at [facility] as scheduled (4) Non-ischemic cardiomyopathy: Comment: Presumed etiology of her cardiomyopathy are either hypertension or related to her chemoradiation therapy for breast cancer years ago Code(s): I42.8 - Other cardiomyopathies Category: Medical Plan: Continue Metoprolol ER 12.5 mg QD and Aspirin 81 mg QD Follow up with cardiology at [facility] as scheduled (5) Benign essential hypertension: Code(s): I10 - Essential (primary) hypertension Category: Medical Plan: Reinforced low sodium diet - goal is systolic BP of 120 mm or less Continue Metoprolol ER 12.5 mg QD and Amlodipine 5 mg QD (6) Pure hypercholesterolemia: Code(s): E78.00 - Pure hypercholesterolemia, unspecified Category: Medical Plan: Patient was not able to get her follow up labs done yet but states that she will try to get them done OSWALDO Reinforced low cholesterol diet Continue Pravastatin 20 mg QD Will recheck her labs and fasting lipids in 4 month for follow up (7) Constipation: Code(s): K59.00 - Constipation, unspecified Category: Medical Qualifiers: Constipation type: unspecified constipation type Qualified Code(s): K59.00 - Constipation, unspecified Plan: Patient is encouraged again on increased oral fluids and dietary fiber Continue Senna 8.6 mg 1 to 2 tablets QD PRN (8) Hyperkalemia: Code(s): E87.5 - Hyperkalemia Category: Medical Plan: Her serum potassium level was normal at 5.1 when her labs were last done in May 2023 Continue Patiromer 8.4 gm QD and Sodium polystyrene sulfonate 15 gm/60 ml every -- (9) Allergic rhinitis: Code(s): J30.9 - Allergic rhinitis, unspecified Category: Medical Qualifiers: Allergic rhinitis trigger: unspecified Allergic rhinitis seasonality: unspecified Qualified Code(s): J30.9 - Allergic rhinitis, unspecified Plan: Continue OTC Loratadine 10 mg QD PRN or Cetirizine 10 mg QD PRN Fluticasone 50 mcg nasal spray QD PRN helps as well (10) Insomnia: Code(s): G47.00 - Insomnia, unspecified Category: Medical Qualifiers: Insomnia type: unspecified Qualified Code(s): G47.00 - Insomnia, unspecified Plan: Sleep hygiene reinforced Continue Trazodone 50 to 100 mg Q HS PRN (11) Anxiety and depression: Code(s): F41.9 - Anxiety disorder, unspecified; F32.9 - Major depressive disorder, single episode, unspecified Category: Medical Plan: Continue Mirtazapine 45 mg Q HS Follow up with psychiatry as scheduled Plan Follow up in 4 months Orders: Orders SARS-CoV2/FLU/RSV 08/20/24 J98.8 - Other specified respiratory disorders Lipid Panel 4 Months E78.00 - Pure hypercholesterolemia, unspecified Hemoglobin A1c 4 Months E11.9 - Type 2 diabetes mellitus without complications Complete Blood Count Auto Diff 4 Months D64.9 - Anemia, unspecified UA CC w/rflx Micro + Cult 4 Months R30.0 - Dysuria Vitamin B12 and Folate 4 Months E53.8 - Deficiency of other specified B group vitamins Vitamin D 25-OH Total 4 Months E55.9 - Vitamin D deficiency, unspecified Comprehensive [place]. Panel Fast 4 Months E78.00 - Pure hypercholesterolemia, unspecified Microalbumin, Random (w Creat) 4 Months E11.9 - Type 2 diabetes mellitus without complications TSH reflex Free T4 4 Months E78.00 - Pure hypercholesterolemia, unspecified B Type Natriuretic Peptide 4 Months I50.9 - Heart failure, unspecified Medications: New azithromycin take 500 mg today (day 1), then 250 mg for 4 days (days 2-5) PO 6 tabs 0RF Changed From fluticasone propionate 220 mcg/actuation (Flovent HFA) 2 puffs inhalation BID 12 grams 0RF To fluticasone propionate 220 mcg/actuation 2 puffs inhalation BID 12 grams 0RF From albuterol sulfate 90 mcg/actuation (ProAir HFA) 2 puffs inhalation Q6H 30 days PRN 18 grams 5RF shortness of breath or wheezing To albuterol sulfate 90 mcg/actuation 2 puffs inhalation Q6H 30 days PRN 18 grams 5RF shortness of breath or wheezing
== END 2024-08-20 16:48 | disposition home or self-care (01) ==
PROVIDERS: PCP Internal Medicine; Visit Provider Internal Medicine
DX: E11.65 Type 2 diabetes mellitus with hyperglycemia (principal); Z79.4 Long term (current) use of insulin; I50.22 Chronic systolic (congestive) heart failure; I42.8 Other cardiomyopathies; J45.41 Moderate persistent asthma with (acute) exacerbation; I10 Essential (primary) hypertension; E78.00 Pure hypercholesterolemia, unspecified; K59.00 Constipation, unspecified; E87.5 Hyperkalemia; J30.9 Allergic rhinitis, unspecified; G47.00 Insomnia, unspecified; F41.9 Anxiety disorder, unspecified

== ENCOUNTER → 2024-08-20 15:55 | Outpatient (BNVA) | payer MEDICARE, OTHER, SELFPAY | PROVIDERS: PCP Internal Medicine; Visit Provider Internal Medicine | DX: J45.41 Moderate persistent asthma with (acute) exacerbation (principal); E11.65 Type 2 diabetes mellitus with hyperglycemia; Z79.4 Long term (current) use of insulin; I11.0 Hypertensive heart disease with heart failure; I50.22 Chronic systolic (congestive) heart failure; I42.8 Other cardiomyopathies; E78.00 Pure hypercholesterolemia, unspecified; K59.00 Constipation, unspecified; E87.5 Hyperkalemia; J30.9 Allergic rhinitis, unspecified; G47.00 Insomnia, unspecified; F41.9 Anxiety disorder, unspecified; F32.9 Major depressive disorder, single episode, unspecified | CPT/HCPCS: 96127; 99212 ==

== ENCOUNTER 2024-08-21 07:15 | Outpatient (REF) | payer MEDICARE, OTHER, SELFPAY ==
[2024-08-21 08:08] LABS: MANUAL DIFF FLAG NO
[2024-08-21 08:10] LABS: Basophils Absolute Auto 0.1 X10*3/uL (0.0-0.2); Basophils Percent Auto 0.6 % (0-2); Eosinophils Absolute Auto 0.2 X10*3/uL (0.0-0.4); Hematocrit 39.8 % (37.0-47.0); Hemoglobin 13.4 g/dl (12.0-16.0); Imm Gran Abs Auto 0.03 X10*3/uL (0.00-0.03); Imm Gran Pct Auto 0.3 % (0.0-0.4); Lymphocytes Absolute Auto 1.5 X10*3/uL (1.2-4.9); Lymphocytes Percent Auto 16.6 % (20-40); Mean Corpuscular HGB Conc 33.7 g/dl (31.0-35.0); Mean Corpuscular Hemoglobin 31.3 pg (27.0-33.0); Mean Platelet Volume 9.6 fL (9.4-12.3); Monocytes Absolute Auto 0.6 X10*3/uL (0.1-1.2); Monocytes Percent Auto 6.3 % (2-11); Neutrophils Absolute Auto 6.5 x10*3/uL (2.0-8.3); Neutrophils Percent Auto 74.2 % (45-73); Platelet Count 223 X10*3/uL (160-400); Red Blood Count 4.28 X10*6/uL (4.20-5.50); Red Cell Distribution Width 13.2 % (11.0-16.0); White Blood Count 8.7 X10*3/uL (4.8-10.8)
[2024-08-21 08:17] LABS: Estimated Average Glucose 151 mg/dL; Hemoglobin A1C 183.8295 umol/L; Hemoglobin A1c % 6.9 % (<6.0); Total Hemoglobin (HGBA1C) 3567.3268 umol/L
[2024-08-21 08:18] LABS: Appearance Urine Clear; Color Urine Yellow; Glucose Urine UA Negative (Negative); Leukocyte Esterase Urine Moderate (2+) (Negative); Nitrite Urine Negative (Negative); PH 5.5 (5.0-9.0); Specific Gravity - Urine 1.015 (1.005-1.025); UMIC TRIGGER UACC YES; Urine Blood Negative (Negative); Urine Ketones Negative (Negative); Urine Protein Negative (Neg-Trace)
[2024-08-21 08:21] LABS: Bacteria Urine None Seen (None Seen); Hyaline Casts Urine 0-2 /LPF (0-2); RBC Urine 0-2 /HPF (0-2); UACC Culture Trigger YES
[2024-08-21 08:39] LABS: Creatinine Urine 126.21 mg/dL; Microalbum/Creatinine Ratio Ur 5.5 ug/mg cr (<30)
[2024-08-21 08:45] LABS: B Type Natriuretic Peptide 14 pg/mL (<100)
[2024-08-21 08:50] LABS: Alanine Aminotransferase 19 U/L (0-31); Albumin Level 4.2 g/dL (3.5-5.0); Alkaline Phosphatase 80 U/L (39-117); Anion Gap 13 (12-20); Aspartate Amino Transferase 25 U/L (5-31); Bilirubin Total 0.5 mg/dL (0.0-1.0); Blood Urea Nitrogen 25 mg/dL (9-16); Calcium 9.6 mg/dL (8.4-10.2); Carbon Dioxide 22 mmol/L (22-29); Chloride 109 mmol/L (96-108); Cholesterol 152 mg/dL (<200); Estimated Glomerular Filt Rate 52; Glucose Fasting 101 mg/dL (60-99); HDL Cholesterol 35 mg/dL (>40); LDL Cholesterol Calculated 99 mg/dL (<100); Potassium 4.2 mmol/L (3.3-5.1); Sodium 140 mmol/L (135-145); Total Protein 7.9 g/dL (6.5-8.0); Triglycerides 94 mg/dL (<150)
[2024-08-21 08:55] LABS: Influenza A PCR NEGATIVE (Negative); Influenza B PCR NEGATIVE (Negative); Resp Syncy Virus RNA Qual PCR NEGATIVE (Negative); SARS COV2 PCR INHOUSE NEGATIVE (Negative)
[2024-08-21 09:05] LABS: TSH reflex Free T4 0.66 uIU/mL (0.32-4.0)
[2024-08-21 09:14] LABS: Folate 15.5 ng/mL (> or = 4.0); Vitamin B12 988 pg/mL (200-900)
== END 2024-08-21 07:16 | disposition home or self-care (01) ==
LOC: HO.LAB 07:15
PROVIDERS: PCP Internal Medicine; Visit Provider Internal Medicine
DX: I50.9 Heart failure, unspecified (principal); E11.9 Type 2 diabetes mellitus without complications; E53.8 Deficiency of other specified B group vitamins; J98.8 Other specified respiratory disorders; D64.9 Anemia, unspecified; E78.00 Pure hypercholesterolemia, unspecified; E55.9 Vitamin D deficiency, unspecified; R30.0 Dysuria
CPT/HCPCS: 0241U; 80053; 80061; 81001; 82043; 82306; 82570; 82607; 82746; 83036; 83880; 84443; 85025; 87086

== ENCOUNTER 2024-12-02 14:14 | Outpatient (AMB) | payer MEDICARE, OTHER, SELFPAY ==
--- NOTE | 2024-12-02 14:26 | AM.OFFWIN_ITS ---
Intake Vital Signs 12/02/24 14:27 Weight 143 lb BP 118/76 Blood Pressure Location Lt brachial Position Sitting Pulse 75 Pulse Source Pulse Oximeter Pulse Oximetry (%) 92 Oxygen Delivery Method Room Air Intake Visit Reasons: EP ? wax inside RT ear Intake Note: Patient here for right ear difficulty hearing, feels likes under water for about 1 week. Patient Tobacco Use Status: Former Tobacco user Allergies No Known Allergies Allergy (Verified 12/02/24 14:27) Do you need a note to return to daycare/school/sports/work: No HPI HPI Comments History of Present Illness Details 64 y/o Female REPLACED BY [facility] Medical History (Updated 12/02/24 @ 15:00 by Sapna Giron NP) Cerumen impaction Cardiac defibrillator in place Hyperkalemia Anxiety and depression Depression Anxiety Insomnia Mild intermittent asthma Pure hypercholesterolemia Benign essential hypertension Non-ischemic cardiomyopathy Chronic HFrEF (heart failure with reduced ejection fraction) Diabetes mellitus with hyperglycemia DM (diabetes mellitus) type II uncontrolled with eye manifestation Surgical History History of implantable cardiac defibrillator (ICD) History of radiation therapy History of reduction surgery of left breast History of removal of cyst History of lumpectomy of right breast Family History Father Medical history unknown Mother No problems noted. Social History Housing: House Alcohol intake: current Alcohol intake frequency: holidays/special occasions only Patient Tobacco Use Status: Former Tobacco user e-Cigarette/Vaping Use: Never Used Second Hand Smoke Exposure: Yes Substance Use Type: Marijuana service: No Current occupational status: disabled Cognitive needs: No Hearing needs: No Vision needs: Yes (glasses) Review of Systems Const All systems reviewed & are unremarkable except as noted in HPI and below Physical Exam Vital Signs: Last Vital Signs Pulse 75 12/02/24 14:27 BP 118/76 12/02/24 14:27 Pulse Ox 92 12/02/24 14:27 Oxygen Delivery Method Room Air 12/02/24 14:27 Const General: no acute distress Nutritional Appearance: well nourished Orientation/consciousness: patient oriented x3 HEENT Head: Yes normocephalic Ears: external ears normal, TM normal on the left and TM abnormal obstructed by cerumen on the right Neuro General: patient oriented x3, gait normal and moves all extremities Psych Speech and movement: Normal speech and movement present Office Procedures Cerumen Removal From which ear canal was the cerumen removed: right Removal: irrigation Notes: patient tolerated procedure well [id number] Irrigation/Lavage Assessment & Plan Assessment & Plan (1) Cerumen impaction: Code(s): H61.20 - Impacted cerumen, unspecified ear Qualifiers: Laterality: right Qualified Code(s): H61.21 - Impacted cerumen, right ear Plan: Ordered Right Ear Lavage, Pt tolerated Procedure well. B/L TM clean and Intact. Coding Level of Care Code Est Pt Level 4 (63632) Diagnoses Impacted cerumen of right ear H61.21 Laterality: right CPT Codes Office Procedure - CPT: 74632-Sxc Irrigation/Lavage ([id number]) Time Spent (min) 20
[2024-12-02 14:27] VITALS: BP 118/76; PULSE 75; O2SAT 92
--- OUTSIDE RECORDS SUMMARY | 2024-12-02 14:56 | XMS_ITS | Patient Health Record ---
Author Organization [facility] [place] Address [address] [place] [address] Care Team Providers Care Service Shop Foreman Name Role Phone Morteza SAEED [place] [facility] Provider UnaCristopher Perez Unavailable [phone] Allergies No Known Allergies Reason For Referral No Information Medications Medication SIG (Take, Route, Frequency, Duration) Notes Start Date End Date Status Corlanor 5 MG 1 tablet with meals Orally Twice a day for 30 day(s) Active Spironolactone 25 MG (Prior Auth: Rx Ref#:[id number]) Oral for 90 Not-Taking Entresto 97-103 MG (Prior Auth: Rx Ref#:[id number]) Oral for 90 Active Estring 2 MG as directed Vaginal Active Estrogens Conjugated OTC Active Digoxin 125 MCG (Prior Auth: Rx Ref#:[id number]) Oral for 90 Not-Taking Flovent HFA 220 MCG/ACT (Prior Auth: Rx Ref#:[id number]) Inhalation for 30 Active Clotrimazole 1 % (Prior Auth: Rx Ref#:[id number]) External for 7 Not-Taking Fluticasone Propionate 50 MCG/ACT 2 spray in each nostril Nasally Once a day Active Fluconazole 150 MG (Prior Auth: Rx Ref#:[id number]) Oral for 3 Not-Taking Furosemide 20 MG (Prior Auth: Rx Ref#:[id number]) Oral for 90 PRN Active metroNIDAZOLE 0.75 % (Prior Auth: Rx Ref#:[id number]) Vaginal for 5 Not-Taking glipiZIDE XL 2.5 MG (Prior Auth: Rx Ref#:[id number]) Oral for 90 Active Sertraline HCl 25 MG (Prior Auth: Rx Ref#:[id number]) Oral for 30 Not-Taking Lantus SoloStar Acti ve Sulfamethoxazole-Trimetho prim 800-160 MG (Prior Auth: Rx Ref#:[id number]) Oral for 5 Not-Taking Metoprolol Succinate Active Valved Holding Chamber - (Prior Auth: Rx Ref#:[id number]) for 30 Not-Taking Mirtazapine 30 MG (Prior Auth: Rx Ref#:[id number]) Orally Once a day Active Yuvafem 10 MCG (Prior Auth: Rx Ref#:[id number]) Vaginal for 84 Not-Taking Vitamin D-3 1000 UNIT 1 capsule Orally O nce a day Not-Taking Dicyclomine HCl 10 MG (Prior Auth: Rx Ref#:[id number]) Oral for 30 Not-Taking ProAir HFA 108 (90 Base) MCG/ACT (Prior Auth: Rx Ref#:[id number]) Inhalation for 25 Active traZODone HCl 100 MG as directed Orally Once a day Active Cinnamon Not-Taking rOPINIRole HCl 0.5 MG 1 tablet 1 to 3 ho urs before bedtime Orally Once a day for 30 day(s) Not-Taking metFORMIN HCl ER 500 MG (Prior Auth: Rx Ref#:[id number]) Oral for 90 Not-Taking Omeprazole 20 MG 1 capsule Orally Onc e a day Not-Taking Extra Depth Orthopedic Shoes (1 Pair) with Customized Heat Molded Multidensity Innersoles (3 Pair) as directed Dx: NIDDM (E11.9), Hammertoe Foot Deformity (M20.41,M20.42), Preulcerative Skin Lesion(s) (L85.1) Active toprol Not-Taking amLODIPine Besylate Active Vagifem Not-Taking Aspir-81 81 MG 1 tablet Orally Once a day Active Multivitamin Not-Niles ing Atorvastatin Calcium 80 MG 1 tablet Orally Once a day Active Pravastatin Sodium 20 MG (Prior Auth: Rx Ref#:[id number]) Oral for 90 Not-Taking Jardiance 10 MG 1 tablet Orally Once a day Not-Taking Jardiance 25 MG 1 tablet Orally Once a day Not-Taking Trulicity Active Meloxicam 15 MG (Prior Auth: Rx Ref#:[id number]) Oral for 90 Not-Taking Immunizations Vaccine Route Administration Date Status Comme nts COVID-19 Moderna Vaccine Unknown 11/04/2020 Administere d 10/06/20 Influenza Unknown 07/28/2017 Administered Influenza Unknown 04/07/2018 Administered Influenza Unknown 07/05/2019 Administered Social History Tobacco Use: Social History Observation Description Date Details (start date - stop date) Former Smoker NA - NA Tobacco Use/Smoking Question Answer Notes Are you a: former smoker When did you stop smoking? 1997 Additional Findings: Tobacco Non-User Cu rrent non-smoker,Ex-moderate cigarette smoker (10-19/day) Alcohol Screen Question Answer Notes Did you have a drink containing alcohol in the p ast year? No Points 0 Interpretation Negative Tobacco use other than smoking: Question Answer Notes Are you an other tobacco user? No Problems Problem Type SNOMED Code ICD Code Onset Dates Problem Status W/U Status Risk Notes Problem Acquired hammer toe of right foot (472358064173768 5) Other hammer toe(s) (acquired), right foot (M20.41) Active confirmed Problem Acquired hammer toe of left foot (406222623477361 3) Other hammer toe(s) (acquired), left foot (M20.42) Active confirmed Problem Type II diabetes mellitus without complication (150490420) Type 2 diabetes mellitus without complications (E11.9) Active confirmed Vital Signs Height 5ft 3 in in 03/08/2024 Weight 134 lbs 03/08/2024 BMI 23.73 kg/m2 03/08/2024 Encounters Encounter Location Date Provider Diagnosis [facility] [address] [address] 03/08/2024 Cristopher Lawrence Other hammer toe(s) (acquired), right foot M20.41 ; Other hammer toe(s) (acquired), left foot M20.42 and Type 2 diabetes mellitus without complications E11.9 Assessments Encounter Date Diagnosis (ICD Code) Assessment Notes Treatment Notes Treatment Clinical Notes Section Notes 03/08/2024 Other hammer toe(s) (acquired), right foot (ICD-10 - M20.41) Patient Educated with: DIABETIC FOOT CARE INSTRUCTIONS.p df (DIABETIC FOOT CARE INSTRUCTIONS.p df) 03/08/2024 Other hammer toe(s) (acquired), left foot (ICD-10 - M20.42) 03/08/2024 Type 2 diabetes mellitus without complications (ICD-10 - E11.9) Plan Of Treatment Next Appt Details Provider Name:Cristopher Lawrence , 03/07/2025 08:30:00 AM, [address], [address], [place], [address], Insurance Providers Payer Name Payer Address Payer Phone Subscriber Number Group Number Insured Name Patient Relationship to Insured Coverage Start Date Coverage End Date Medicare [employer] [facility] [address] [place] [address] [id number] Phyllis Howard Self - patient is the insured 9 [employer] [address] [place] [address] [id number] Zac Howard Spouse - patient is the spouse of the insured Medical (General) History Medical History History ICD Code Anxiety disorder asthma Cardiomyopathy cervical cancer Chicken pox Depression Heart disease Hyperlipid Hypertension Measles type II diabetes Reflux ( GERD) Varicose Veins Surgical History Surgery Date(Month/Year) lumpectomy, right breast 03/27/1998 reduction on left side and implant on ri ght side 02/2011 cyst removal inner vaginal 08/2011 vaginal prosterior repair 08/2011 cyst removed from left inner wrist area nudyretgrak sling 07/2010 CHF nonischemic 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
--- OUTSIDE RECORDS SUMMARY | 2024-12-02 14:56 | XMS_ITS ---
Author Organization [facility] Address [address] [place] [address] Care Team Providers Care Tire Specialist Name Role Phone Morteza SAEED [place] Primary Care Provider UnaCristopher Perez Unavailable [phone] Allergies No Known Allergies REASON FOR VISIT At Risk Footcare, Toe Irritation Medications Medication SIG (Take, Route, Frequency, Duration) Notes Start Date End Date Status Valved Holding Chamber - (Prior Auth: Rx Ref#:[id number]) for 30 Not-Taking Yuvafem 10 MCG (Prior Auth: Rx Ref#:[id number]) Vaginal for 84 Not-Taking Jardiance 10 MG 1 tablet Orally Once a day Not-Taking Jardiance 25 MG 1 tablet Orally Once a day Not-Taking Meloxicam 15 MG (Prior Auth: Rx Ref#:[id number]) Oral for 90 Not-Taking Clotrimazole 1 % (Prior Auth: Rx Ref#:[id number]) External for 7 Not-Taking Fluconazole 150 MG (Prior Auth: Rx Ref#:[id number]) Oral for 3 Not-Taking metroNIDAZOLE 0.75 % (Prior Auth: Rx Ref#:[id number]) Vaginal for 5 Not-Taking Sertraline HCl 25 MG (Prior Auth: Rx Ref#:[id number]) Oral for 30 Not-Taking Sulfamethoxazole-Trimetho prim 800-160 MG (Prior Auth: Rx Ref#:[id number]) Oral for 5 Not-Taking Digoxin 125 MCG (Prior Auth: Rx Ref#:[id number]) Oral for 90 Not-Taking Pravastatin Sodium 20 MG (Prior Auth: Rx Ref#:[id number]) Oral for 90 Not-Taking Spironolactone 25 MG (Prior Auth: Rx Ref#:[id number]) Oral for 90 Not-Taking Vitamin D-3 1000 UNIT 1 capsule Orally O nce a day Not-Taking Dicyclomine HCl 10 MG (Prior Auth: Rx Ref#:[id number]) Oral for 30 Not-Taking metFORMIN HCl ER 500 MG (Prior Auth: Rx Ref#:[id number]) Oral for 90 Not-Taking Omeprazole 20 MG 1 capsule Orally Onc e a day Not-Taking toprol Not-Taking Vagifem Not-Taking Multivitamin Not-Niles ing Cinnamon Not-Taking rOPINIRole HCl 0.5 MG 1 tablet 1 to 3 ho urs before bedtime Orally Once a day for 30 day(s) Not-Taking ProAir HFA 108 (90 Base) MCG/ACT (Prior Auth: Rx Ref#:[id number]) Inhalation for 25 Active traZODone HCl 100 MG as directed Orally Once a day Active Trulicity Active Furosemide 20 MG (Prior Auth: Rx Ref#:[id number]) Oral for 90 PRN Active glipiZIDE XL 2.5 MG (Prior Auth: Rx Ref#:[id number]) Oral for 90 Active Lantus SoloStar Acti ve Metoprolol Succinate Active Mirtazapine 30 MG (Prior Auth: Rx Ref#:[id number]) Orally Once a day Active Estrogens Conjugated OTC Active Flovent HFA 220 MCG/ACT (Prior Auth: Rx Ref#:[id number]) Inhalation for 30 Active Fluticasone Propionate 50 MCG/ACT 2 spray in each nostril Nasally Once a day Active Entresto 97-103 MG (Prior Auth: Rx Ref#:[id number]) Oral for 90 Active Estring 2 MG as directed Vaginal Active Extra Depth Orthopedic Shoes (1 Pair) with Customized Heat Molded Multidensity Innersoles (3 Pair) as directed Dx: NIDDM (E11.9), Hammertoe Foot Deformity (M20.41,M20.42), Preulcerative Skin Lesion(s) (L85.1) Active amLODIPine Besylate Active Aspir-81 81 MG 1 tablet Orally Once a day Active Atorvastatin Calcium 80 MG 1 tablet Orally Once a day Active Corlanor 5 MG 1 tablet with meals Orally Twice a day for 30 day(s) Active Social History Tobacco Use: Social History Observation [...] Are you an other tobacco user? No Vital Signs Height 5ft 3 in in 03/08/2024 Weight 134 lbs 03/08/2024 BMI 23.73 kg/m2 03/08/2024 Encounters Encounter Location Date Provider Diagnosis [facility] [address] [place] [id number] 03/08/2024 Cristopher Lawrence Other hammer toe(s) (acquired), [...] complications (ICD-10 - E11.9) Plan Of Treatment Medication Medication Name Sig Start Date Stop Date Notes Extra Depth Orthopedic Shoes (1 Pair) with Customized Heat Molded Multidensity Innersoles (3 Pair) as directed Dx: NIDDM (E11.9), Hammertoe Foot Deformity (M20.41,M20.42), Preulcerative Skin Lesion(s) (L85.1) Treatment Notes Assessment Notes Other hammer toe(s) (acquired), right fo ot Patient Educated with: DIABETIC FOOT CARE INSTRUCTIONS.pdf (DIABETIC FOOT CARE INSTRUCTIONS.pdf) Next Appt Details Follow Up: 1 Year, Reason: Provider Name:Cristopher Giacomo Lawrence , 03/07/2025 08:30:00 AM, [address] , [address], [place], [address], Progress Notes * Phyllis PINADOB:[birth year] (64 yo F)Acc No.[id number]:03/08/2024 Progress Note Patient:?Phyllis Pina Provider:?Cristopher Lawrence DPM :1960???Age:64 Y???Sex:Female D ate:03/08/2024 Address:[address] [place], [place] [id number] Pcp:Arthur Pro MD Subjective: * Chief Complaints: * ???At Risk FootcareToe Irrit ation * HPI: ???At Risk footcare:?Pt States Last PCP Visit:?Date?09/25/2023 ???Toe pain:?Location:?B/L feet.?Duration:?several years.?Course:?worse.?Aggravated by:?shoes, any pressure.?Treatments:?change in shoes.? * ROS:?General/Constitutional:?Nausea?denies.?Vomiting?denies.?Hunger Thirst?denies.?Loss appetite?denies.?Chills?denies.?Fatigue?denies.?Fever?denies.?Night Sweats?admits.?Unexplained weight loss?denies.?Unexplained weight gain?denies.?HEENTM:?Dentures?denies.?Dizziness?denies.?Glasses/contacts?admits.?Retinopathy?de nies.?Blurred/double vision?denies.?TMJ?denies.?Discharge/drainage?denies.?Implants?denies.?Sore throat?denies.?Dental implants?denies.?Hard of hearing ?denies.?Difficulty chewing/swallowing/speaking?denies.?Nose bleeds?denies.?Sore mouth?denies.?Respiratory:?On Oxygen?denies.?Pneumonia/pleurisy?denies.?Bronchitis?denies.?Emphysema?denies.?C oughing?denies.?Cough blood?denies.?Shortness of breath?denies.?Wheezing?denies.?Cardiovascular:?Pacemaker?denies.?MVP?denies.?WPW?denies.?CHF?denies.?Heart attack?denies.?Septal defect?denies.?Rapid beat?denies.?Chest pain ?denies.?Atrial Fib.?denies.?Murmur/Palpitations?denies.?Gastrointestinal:?Hemorrhoids?denies.?Stomach/Abdominal pain?denies.?Dark blood stool?denies.?Irritable bowel ?denies.?Constipation?denies.?Diarrhea?denies.?Hematology:?Swelling?denies.?Clots?denies.?Varicose Veins?admits.?Bruising?admits, on aspirin.?Bleeding problem?admits, on anticoagulants.?Genitourinary:?Blood urine?denies.?Frequent/Painfu/urination/bladder control?denies.?Kidney stones?denies.?Infection (UTI)?denies.?Nephropathy?denies.?sex trans dis (STD)?denies.?Prostate?denies.?Musculoskeletal:?Hammertoes?admits.?Bunions?admits.?Back Pain?denies.?Muscle Cramps/ Resting?denies.?Muscle cramps / walking?denies.?Generalized aches and pains?denies.?Weakness?denies.?Integ.:?Moraes?denies.?Scars?denies.?Corns/calluses?admits.?Ingrown nails?denies.?Painful nails?denies.?Open Sores?denies.?Rashes?denies.?Neurologic:?Difficulty sleeping?denies.?Brain disorder?denies.?Numbness?denies.?Balance trouble?denies.?Confusion?denies.?Fainting/blackouts?denies.?Tingling?denies.?Tr emors?denies.? * Medical History:? * Surgical History:?lumpectomy , right breast 03/27/1998reduction on left side and implant on right side 02/2011cyst removal inner vaginal 08/2011vaginal prosterior repair 08/2011cyst removed from left inner wrist area 1989'snudyretgrak sling 07/2010[facility] nonischemic cardiomyopathy secondary to radiation TX EF 15-20% 02/2015Defibrillator palced meditronic-Dr Ruiz 09/2015colonoscopy 09/14/10Mammogram Screening 05/22/15breast reconstruction 03/13/2011hysterectomy 10/25/2014Cyst removal from left third finger 09/2023 * Hospitalization/Major Diagno stic Procedure:?[facility] Congestive heart failure 02/20/2015@ [facility] removed fluid from lungs 03/2018 * Family History:?Mother: dece ased.?Father: .?Maternal Grand Father: unknown, diagnosed with Diabetic - NIDDM.?Spouse: alive.? * Social History:?Tobacco Use:?Tobacco Use/Smoking?Are you a:?former smoker ?When did you stop smoking??1998 ?Additional Findings: Tobacco Non-User?Current non-smoker,Ex-moderate cigarette smoker (10-19/day) ?Tobacco use other than smoking?Are you an other tobacco user??No ???Drugs/Alcohol:?Drugs?Have you used drugs other than those for medical reasons in the past 12 months??Yes ?Marijuana??Yes ?Alcohol Screen?Did you have a drink containing alcohol in the past year??No ?Points?0 ?Interpretation?Negative ???Miscellaneous:?Caffeine: yes, frequency:, 1-2 cups per day. ?Children: yes, 3. ?Exercise: yes, walking, gym. ?Marital status: . ?Occupation: Disability. * Medications:?TakingamLODIPin e Besylate Aspir-81 81 MG Tablet Delayed Release 1 tablet Orally Once a dayAtorvastatin Calcium 80 MG Tablet 1 tablet Orally Once a dayCorlanor 5 MG Tablet 1 tablet with meals Orally Twice a dayEntresto 97-103 MG Tablet (Prior Auth: Rx Ref#:[id number]) Oral Estring 2 MG Ring as directed Vaginal Estrogens Conjugated , Notes: OTCFlovent HFA 220 MCG/ACT Aerosol (Prior Auth: Rx Ref#:[id number]) Inhalation Fluticasone Propionate 50 MCG/ACT Suspension 2 spray in each nostril Nasally Once a dayFurosemide 20 MG Tablet (Prior Auth: Rx Ref#:[id number]) Oral , Notes: PRNglipiZIDE XL 2.5 MG Tablet Extended Release 24 Hour (Prior Auth: Rx Ref#:[id number]) Oral Lantus SoloStar Metoprolol Succinate Mirtazapine 30 MG Tablet (Prior Auth: Rx Ref#:[id number]) Orally Once a dayProAir HFA 108 (90 Base) MCG/ACT Aerosol Solution (Prior Auth: Rx Ref#:[id number]) Inhalation traZODone HCl 100 MG Tablet as directed Orally Once a dayTrulicity Taking amLODIPine Besylate Taking Aspir-81 81 MG Tablet Delayed Release 1 tablet Orally Once a dayTaking Atorvastatin Calcium 80 MG Tablet 1 tablet Orally Once a dayTaking Corlanor 5 MG Tablet 1 tablet with meals Orally Twice a dayTaking Entresto 97- 103 MG Tablet (Prior Auth: Rx Ref#:[id number]) Oral Taking Estring 2 MG Ring as directed Vaginal Taking Estrogens Conjugated , Notes: OTCTaking Flovent HFA 220 MCG/ACT Aerosol (Prior Auth: Rx Ref#:[id number]) Inhalation Taking Fluticasone Propionate 50 MCG/ACT Suspension 2 spray in each nostril Nasally Once a dayTaking Furosemide 20 MG Tablet (Prior Auth: Rx Ref#:[id number]) Oral , Notes: PRNTaking glipiZIDE XL 2.5 MG Tablet Extended Release 24 Hour (Prior Auth: Rx Ref#:[id number]) Oral Taking Lantus SoloStar Taking Metoprolol Succinate Taking Mirtazapine 30 MG Tablet (Prior Auth: Rx Ref#:[id number]) Orally Once a dayTaking ProAir HFA 108 (90 Base) MCG/ACT Aerosol Solution (Prior Auth: Rx Ref#:[id number]) Inhalation Taking traZODone HCl 100 MG Tablet as directed Orally Once a dayTaking Trulicity Not- Taking/PRNCinnamon rOPINIRole HCl 0.5 MG Tablet 1 tablet 1 to 3 hours before bedtime Orally Once a daymetFORMIN HCl ER 500 MG Tablet Extended Release 24 Hour (Prior Auth: Rx Ref#:[id number]) Oral Omeprazole 20 MG Capsule Delayed Release 1 capsule Orally Once a daytoprol Vagifem Multivitamin Pravastatin Sodium 20 MG Tablet (Prior Auth: Rx Ref#:[id number]) Oral Spironolactone 25 MG Tablet (Prior Auth: Rx Ref#:[id number]) Oral Vitamin D-3 1000 UNIT Capsule 1 capsule Orally Once a dayDicyclomine HCl 10 MG Capsule (Prior Auth: Rx Ref#:[id number]) Oral Digoxin 125 MCG Tablet (Prior Auth: Rx Ref#:[id number]) Oral Clotrimazole 1 % Cream (Prior Auth: Rx Ref#:[id number]) External Fluconazole 150 MG Tablet (Prior Auth: Rx Ref#:[id number]) Oral metroNIDAZOLE 0.75 % Gel (Prior Auth: Rx Ref#:[id number]) Vaginal Sertraline HCl 25 MG Tablet (Prior Auth: Rx Ref#:[id number]) Oral Sulfamethoxazole-Trimethoprim 800-160 MG Tablet (Prior Auth: Rx Ref#:[id number]) Oral Valved Holding Chamber - Device (Prior Auth: Rx Ref#:[id number]) Yuvafem 10 MCG Tablet (Prior Auth: Rx Ref#:[id number]) Vaginal Jardiance 10 MG Tablet 1 tablet Orally Once a dayJardiance 25 MG Tablet 1 tablet Orally Once a dayMeloxicam 15 MG Tablet (Prior Auth: Rx Ref#:[id number]) Oral Medication List reviewed and reconciled with the patientNot-Taking/PRN Cinnamon Not-Taking/PRN rOPINIRole HCl 0.5 MG Tablet 1 tablet 1 to 3 hours before bedtime Orally Once a dayNot-Taking/PRN metFORMIN HCl ER 500 MG Tablet Extended Release 24 Hour (Prior Auth: Rx Ref#:[id number]) Oral Not-Taking/PRN Omeprazole 20 MG Capsule Delayed Release 1 capsule Orally Once a dayNot-Taking/PRN toprol Not-Taking/PRN Vagifem Not- Taking/PRN Multivitamin Not-Taking/PRN Pravastatin Sodium 20 MG Tablet (Prior Auth: Rx Ref#:[id number]) Oral Not-Taking/PRN Spironolactone 25 MG Tablet (Prior Auth: Rx Ref#:[id number]) Oral Not-Taking/PRN Vitamin D-3 1000 UNIT Capsule 1 capsule Orally Once a dayNot-Taking/PRN Dicyclomine HCl 10 MG Capsule (Prior Auth: Rx Ref#:[id number]) Oral Not-Taking/PRN Digoxin 125 MCG Tablet (Prior Auth: Rx Ref#:[id number]) Oral Not-Taking/PRN Clotrimazole 1 % Cream (Prior Auth: Rx Ref#:[id number]) External Not-Taking/PRN Fluconazole 150 MG Tablet (Prior Auth: Rx Ref#:[id number]) Oral Not-Taking/PRN metroNIDAZOLE 0.75 % Gel (Prior Auth: Rx Ref#:[id number]) Vaginal Not-Taking/PRN Sertraline HCl 25 MG Tablet (Prior Auth: Rx Ref#:[id number]) Oral Not-Taking/PRN Sulfamethoxazole-Trimethoprim 800-160 MG Tablet (Prior Auth: Rx Ref#:[id number]) Oral Not-Taking/PRN Valved Holding Chamber - Device (Prior Auth: Rx Ref#:[id number]) Not-Taking/PRN Yuvafem 10 MCG Tablet (Prior Auth: Rx Ref#:[id number]) Vaginal Not-Taking/PRN Jardiance 10 MG Tablet 1 tablet Orally Once a dayNot-Taking/PRN Jardiance 25 MG Tablet 1 tablet Orally Once a dayNot-Taking/PRN Meloxicam 15 MG Tablet (Prior Auth: Rx Ref#:[id number]) Oral Medication List reviewed and reconciled with the patient * Allergies:?N.K.D.A.yes[Aller gies Verified] Objective: * Vitals:?Ht:5ft 3 in, Wt:134, BMI:23.73, Shoe size:8.5, Ht-cm: 160.02 cm, Wt-k.78 kg. * ???Past Orders: ???Lab:HEMOGLOBIN A1C (GLYCO HEMOGLOBIN) (Order Date - 09/25/2023) (Collection Date - 09/25/2023) ? Value Reference Range ?HEMOGLOBIN A1C % (HH) 7.4 * Examination: ???General Examination: ?GENERAL APPEARANCE:?Reveals a pleasant, alert, well nourished, well developed, well hydrated individual, who demonstrates proper attention to hygiene/body habitus, and is in no acute distress , Pt serves as own historian for office visit today.?ORIENTED:?person, place, and time.?FOOT EXAM:?Lower Extremity Neurological Exam performed:?Yes ?Footwear Evaluation?Footwear Evaluation performed:?Yes?Ophthalmology Referral: ?DIABETES EYE EXAM?Diabetic Retinopathy Screening:?Yes ?Findings of Diabetic Eye Exam:?no retinopathy?Neurological: ?SENSORY:?Neurological exam reveals intact sensorium, pain sensation normal, vibration sensation intact, pinprick sensation is normal in the lower extremities, 5.07 monofilament test performed at plantar aspects of 5 varied sites per foot shows sensation, normal, B/L, Pt denies, anesthesia, burning, paresthesia, tingling, B/L.?DEEP TENDON REFLEXES:?Achilles , 1/4, B/L.?Vascular: ?DP PULSES:?2/4, B/L.?PT PULSES:?2/4, B/L.?CAPILLARY FILL TIME:?immediate, all digits, B/L.?SKIN TEMPERTURE GRADIENT OF THE LOWER EXTERMITIES:?normal, warm to cool, proximal to distal, B/L, B/L.?HAIR GROWTH/TEXTURE/ELASTICITY/TURGOR:?normal, B/L.?PIGMENTATION:?normal, B/L.?EDEMA:?absent, B/L.?Dermatologic: ?SKIN FINDINGS:?Skin exam reveals normal texture, elasticity, and turgor. There are no masses. The interspaces are clear, Skin exam reveals Keratotic lesion(s) located at, Heel(s), B/L , Skin shows sign(s) of , brown pigmented lesion?measuring 10mm x 5mm, without ABCD changes , Plantar , Forefoot , Left.?Orthopedic: ?MUSCLE STRENGTH:?5/5 all groups in a symmetrical fashion , B/L.?FOOT MORPHOLOGY:? No Charcot collapse/destruction noted at MTJ.?DIGITAL DEFORMITIES:?Digital contracture, PIPJ, 2-5 B/L, incompl-reducible to push-up test, no over, nor underlapping,?there is?evidence of shoe producing skin irritation.?FOOTWEAR:?worn, OT were inspected and noted to be severely worn , in poor condition not giving proper support at the present time , shoe gear properties exacerbate patient's foot/toe deformity.? Assessment: * Assessment: 1.?Other hammer toe(s) (acqu ired), right foot - M20.41 (Primary), Chronic problem, Worse (4)?2.?Other hammer toe(s) (acquired), left foot - M20.42, Chronic problem, Worse (4)?3.?Type 2 diabetes mellitus without complications - E11.9? Plan: * Treatment: * Procedure Codes:? * Preventive Medicine:? ??Counseling:?Discussion:?-14: Office or other outpatient visit for the evaluation and management of an established patient, which required a medically appropriate history and/or examination and MODERATE level of DECISION MAKING for: 1 OR MORE CHRONIC PROBLEM(S) THATS WORSENING, 2 STABLE CHRONIC PROBLEMS, A NEWLY DIAGNOSED PROBLEM WITH UNCERTAIN PROGNOSIS, AN ACUTE COMPLICATED INJURY WITH MULTIPLE TREATMENT OPTIONS, OR AN ACUTE PROBLEM WITH ACCOMPANYING SYSTEMIC SYMPTOMS, THAT POSE(S) A MODERATE RISK OF MORBIDITY. THIS CONDITION MAY ALSO INCLUDE RX DRUG MANAGEMENT, OR A DECISON FOR MINOR SURGERY. The visit on the day of the encounter encompassed interpreting the data and educating the patient as to the nature of their condition, treatment options available according to their individual PMH, meds, allergies, and overall health/living conditions, as well as any potential risks or complications that may occur from a failure to adhere to, and participate in, the recommended course of therapy. The discussion included a complete verbal, and/or written explanation of the examination results, any x-rays taken, the proposed diagnosis, and outline of the treatment plan. A schedule for future care needs was also explained. The patient verbalized an understanding of the instructions at this time and agreed to be an active participant in their treatment. If the patient should think of any questions or concerns after the visit, I have encouraged the patient to call the office.?Digital Surgery:?Digital surgery was discussed with the patient, We elected to try conservative treatment at the present time, due to the patients medical history and increased asssociated post-operative risks.?Digital Treatment:?HT- I explained to the patient the possible etiologies of Hammertoes, including genetics/foot type/shoegear/activity level/exercise routine and the risks/benefits of all the different treatment options for their pain including: No treatment at all, Rest, Ice, New/supportive/wider/deeper Shoegear, Digital Padding/Strapping/Taping/Bracing/Gel protective sleeves, Foot/Ankle AFO Bracing, Stretching exercises, Deep Tissue Massage, Arch support/shoe inserts with splay metatarsal padding, and Custom orthoses. I insisted that any digital devices be removed daily and not worn overnight for safety. The patient is to carefully examine the toes daily for any skin irritation while using any splinting or padding device. The advantages and disadvantages of each option were discussed and the patients questions re: shoegear, padding, custom vs prefabricated inserts, activity level, and consistency in home treatment regimens for optimal success were answered to their verbally confirmed satisfaction.?Shoe Gear Counseling:?SHOE Rx - The patient was counseled in great detail on their muscoloskeletal foot and toe deformities which coincided with the dermatological presentations visualized on exam. We discussed how their deformities put the integrity of their feet at risk for potential pedal complications which makes the accomidative diabetic shoes and cutomizable inserts medically necessary. We discussed the different shoe and insert treatment types and options, as well as the important advantages for adhering to regularly wearing these accomidative devices daily. The patient was made aware of the fact that a failure to abide by these recommedations may be deleterious to their foot health as they are able to prevent many pedal complications such as skin irritation, skin ulceration, infection, and even loss of toe/foot/leg/or life. Time was also spent with the patient dispensing and discussing proper diabetic footcare techniques including daily skin moisturization, daily foot inspection for any interruption in skin integrity including open lesions, or sign of infection such as redness/malodor/drainage/swelling. Also discussed and recommended were procedures regarding daily shoe inspection for the presence of internal foreign bodies as well as any visualized irregular shoe or insert wear. Patient questions re: shoes, inserts, and self foot inspections were answered to their satisfaction as the patient verbally confirmed a full understanding of the above information. A Rx for Extra Depth Orthopedic Shoes with 3 pair of custom heat-molded inserts was dispensed.? ??Screening/Special Tests:?Fall Risk?Assessment:?Performed ?Plan of Care:?Documented ?Screening:?No falls in the past year ?FALLS: Screening for Future Fall Risk?Have you had any falls with injury in the past year??No * Follow Up:?1 Year * Images: * Sign off status: Completed true * Provider:?Cristopher Lawrence DPM Date:?2023 Generated for Ignacio matias/Mairaa/eTransmitting on:?12/02/2024 02:55 PM EDT History and Physical Notes * HPI (History of Present Illness) Category Sub-Category Detail Notes Category Not es Toe pain Location: B/L feet Duration: several years Course: worse Aggravated by: shoes, any pressure Treatments: change in shoes At Risk footcare Pt States Last PCP Visit: Date: 4 Examination Category Sub-Category Detail Notes Category Not es Neurological SENSORY: Neurological exa m reveals intact sensorium, pain sensation normal, vibration sensation intact, pinprick sensation is normal in the lower extremities, 5.07 monofilament test performed at plantar aspects of 5 varied sites per foot shows sensation, normal, B/L, Pt denies, anesthesia, burning, paresthesia, tingling, B/L TINEL'S COMPRESSION: DEEP TENDON REFLEXES: Achilles , 1/4, B/ L Dermatologic SKIN FINDINGS: Skin exam reveal s normal texture, elasticity, and turgor. There are no masses. The interspaces are clear, Skin exam reveals Keratotic lesion(s) located at, Heel(s), B/L , Skin shows sign(s) of , brown pigmented lesion measuring 10mm x 5mm, without ABCD changes , Plantar , Forefoot , Left Orthopedic FOOT MORPHOLOGY: No Charcot collapse/dest ruction noted at GAJ FOOTWEAR EVALUATION: worn, OT were inspe cted and noted to be severely worn , in poor condition not giving proper support at the present time , shoe gear properties exacerbate patient's foot/toe deformity DIGITAL DEFORMITIES: Digital contracture , PIPJ, 2-5 B/L, incompl-reducible to push-up test, no over, nor underlapping, there is evidence of shoe producing skin irritation MUSCLE STRENGTH: 5/5 all groups in a symmetrical fashion , B/L General Examination GENERAL APPEARANCE: Reveals a pleasant, alert, well nourished, well developed, well hydrated individual, who demonstrates proper attention to hygiene/body habitus, and is in no acute distress , Pt serves as own historian for office visit today FOOT EXAM: Lower Extremity Neurological Exa m performed:: Yes ORIENTED: person, place, and t anabelle Footwear Evaluation Footwear Evaluation performe d:: Yes Ophthalmology Referral DIABETES EYE EXAM Diabetic Retinopa thy Screening:: Yes Findings of Diabetic Eye Exam:: no retin opathy Vascular DP PULSES (B): 2/4, B/L PT PULSES (B): 2/4, B/L CAPILLARY FILL TIME: immediate, all digi ts, B/L TEMPERTURE GRADIENT (C): normal, warm to cool, proximal to distal, B/L, B/L TROPHIC CONDITION-TEXTURE/ELASTICITY/TURGOR/HAIR GROWTH (B): normal, B/L EDEMA (C): absent, B/L PIGMENTATION: normal, B/L
--- OUTSIDE RECORDS SUMMARY | 2024-12-02 14:56 | XMS_ITS ---
[facility] Address [address] [place] [address] Care Team Providers Care Tube Coverer Name Role Phone Arthur Pro MD Primary Care Provider Unava ilCristopher Torres Unavailable [phone] Encounters Encounter Location Date [facility] [address] [address] 01/26/2024 Cristopher Lawrence Plan Of Treatment Next Appt Details Provider Name:Cristopher Lawrence , 03/07/2025 08:30:00 AM, [address] [place] [address], [phone], Progress Notes * Phyllis PINADOB:[birth year] (64 yo F)Acc No.[id number]:01/26/2024 Progress Note Patient:?Colleen PINAanita Provider:?Cristopher Lawrence DPM :1960???Age:63 Y???Sex:Female D ate:01/26/2024 Address:[address] [place], [place] [id number] Pcp:Arthur Pro MD Subjective: * Chief Complaints: * ??? * Medical History:?Anxiety dis order, Asthma, Cardiomyopathy, Cervical cancer, Chicken pox, Depression, Heart disease, Hyperlipid, Hypertension, Measles, type II diabetes, Reflux ( GERD), Varicose Veins. Objective: * Vitals:? Assessment: Plan: * Treatment: * Images: * The named appointment provid er may or may not be the originator of this progress note, and it is not deemed complete until electronically signed by the appointment provider. Sign off status: Pending * Provider:Raman Lawrence DPM Date:?2023 Generated for Ignacio matias/Mariaa/Carolina on:?12/02/2024 02:55 PM EDT
--- OUTSIDE RECORDS SUMMARY | 2024-12-02 14:56 | XMS_ITS ---
[facility] Address [address] [place] [address] Care Team Providers Care Instructional Paraprofessional Name Role Phone Arthru Pro MD Primary Care Provider Unava Cristopher Choudhury Unavailable [phone] Melo Encounters Encounter Location Date [facility] [address] [address] 12/08/2023 Cristopher Lawrence Plan Of Treatment Next Appt Details Provider Name:Cristopher Lawrence , 03/07/2025 08:30:00 AM, [address] [place] [address], [phone], Progress Notes * Phyllis PINADOB:[birth year] (64 yo F)Acc No.[id number]:12/08/2023 Progress Note Patient:?Colleen PINAanita Provider:?Cristopher Lawrence DPM :1960???Age:63 Y???Sex:Female D ate:12/08/2023 Address:[address] [place] [id number] Pcp:Arthur Pro MD Subjective: * Chief Complaints: * ???1. Dr. Melo. * Medical History:?Anxiety dis order, Asthma, Cardiomyopathy, [...] appointment provider. Sign off status: Pending * Provider:?Cristopher Lawrence DPM Date:?2023 Generated for Ignacio matias/Mariaa/Carolina on:?12/02/2024 02:56 PM EDT
== END 2024-12-02 15:07 | disposition home or self-care (01) ==
PROVIDERS: PCP Internal Medicine; Visit Provider Nurse Practitioner Family
DX: H61.21 Impacted cerumen, right ear (principal)

== ENCOUNTER → 2024-12-02 14:14 | Outpatient (BNVA) | payer MEDICARE, OTHER, SELFPAY | PROVIDERS: PCP Internal Medicine; Visit Provider Nurse Practitioner Family | DX: H61.21 Impacted cerumen, right ear (principal) | CPT/HCPCS: 69209; 99212 ==

== ENCOUNTER 2024-12-17 15:08 | Outpatient (AMB) | payer MEDICARE, OTHER, SELFPAY ==
--- OUTSIDE RECORDS SUMMARY | 2024-12-17 15:11 | XMS_ITS ---
[facility] Address [address] [place] [address] Care Team Providers Care Oil Dispenser Name Role Phone Arthur Pro MD Primary Care Provider Unava ilCristopher Torres Unavailable [phone] Encounters Encounter Location Date [facility] [address] [address] 01/26/2024 Cristopher Lawrence Plan Of Treatment Next Appt Details Provider Name:Cristopher Lawrence , 03/07/2025 08:30:00 AM, [address] [place] [address], [phone], Progress Notes * Phyllis PINADOB:[birth year] (64 yo F)Acc No.[id number]:01/26/2024 Progress Note Patient:?Colleen PINAanita Provider:?Cristopher Lawrence DPM :1960???Age:63 Y???Sex:Female D ate:01/26/2024 Address:[address] [place], [place] [id number] Pcp:Arthur Pro MD Subjective: * Chief Complaints: [...] Provider:Raman Lawrence DPM Date:?2023 Generated for Ignacio maitas/Mariaa/Carolina on:?12/17/2024 03:11 PM EDT
[2024-12-17 15:14] VITALS: BP 138/70; PULSE 80; O2SAT 95; BMI 25.5
--- NOTE | 2024-12-17 15:14 | A.OFFPC_ITS ---
Vital Signs 12/17/24 15:14 Height 5 ft 3 in Weight 144 lb 2 oz BMI 25.5 BP 138/70 Blood Pressure Location Lt brachial Position Sitting Pulse 80 Pulse Source Pulse Oximeter Pulse Oximetry (%) 95 Oxygen Delivery Method Room Air Intake Visit Reasons: 4 Months f/u Laboratory Animal Caretaker Required: No Accompanied by: Self / Same As Patient Allergies No Known Allergies Allergy (Verified 12/17/24 15:34) Medication List - Last Reconciled 12/17/24 by Arthur Pro MD albuterol sulfate 90 mcg/actuation 2 puffs inhalation Q6H PRN 30 days amlodipine 5 mg PO DAILY aspirin 81 mg PO DAILY atorvastatin 10 mg PO BEDTIME 90 days [BD Ultra Fine Micro Pen Needle 32 gauge x Use as directed] carbamide peroxide 6.5% (Debrox) 5 drps otic (ears) Q12H 7 days dulaglutide 1.5 mg (0.5 mL) subcut QWEEK 3 months estradiol 0.01%(0.1mg/gram) vaginal flash glucose scanning reader ([employer] Zoila 14 Day [place]) As directed flash glucose sensor ([employer] Zoila 14 Day Sensor kit) As directed fluticasone propionate 50 mcg/actuation 1 spray intranasal BID fluticasone propionate 220 mcg/actuation 2 puffs inhalation BID furosemide 40 mg Q AM and 20 mg Q PM PO; glipizide 5 mg PO DAILY 90 days insulin glargine (Lantus Solostar U-100 Insulin) 10 units (0.1 mL) subcut QPM ivabradine 5 mg PO BID 90 days metoprolol succinate ER 12.5 mg (1/2 x 25 mg) PO DAILY 90 days mirtazapine 45 mg PO BEDTIME 90 days pen needle, diabetic USE DIRECTED sacubitril-valsartan 97-103 mg (Entresto) 1 tab PO BID spironolactone 25 mg PO DAILY trazodone 100 mg PO BEDTIME PRN 90 days Tobacco use date assessed: 12/17/24 Fall risk assessment: No Falls in past year Last assessed Fall Risk: 12/17/24 Dental Screening Dental Screen Date: 12/17/24 Did you have a dental visit in the last 12 months?: No Did you have a dental problem in the last 6 months where you did not have access to dental care?: No Was dental information given to patient?: No HPI 4 Months f/u HPI Details Patient comes in today for her follow up visit States that she has been experiencing recurrent painful sensations wherein she feels like food is getting stuck in her throat whenever she is swallowing for t he past couple of weeks now Relates that she has to drink some water to help push the food down to relieve her symptoms She denies any recent sore throat or any recent cough/cold symptoms although she has been experiencing frequent allergy symptoms lately and needs her Flonase nasal spray Rx refilled Adds that she has been feeling more depressed lately; she has also not been sleeping good for a few weeks now and feels that her Trazodone is no longer helping She denies any recent headaches or dizziness Denies any chest pains, no increased shortness of breath No nausea/vomiting, no abdominal pain No change in bowel habits noted She was not able to get her follow up labs done prior to her appointment today - states that she tried to go and get her labs done yesterday but she was not fasting at the time and she was told by the lab that they could not do her tests then States that she will try to go and get these done [facility] Medical History (Updated 12/19/24 @ 06:49 by Arthur Pro MD) Asthma Cerumen impaction Cardiac defibrillator in place Hyperkalemia Anxiety and depression Depression Anxiety Insomnia Mild intermittent asthma Pure hypercholesterolemia Benign essential hypertension Non-ischemic cardiomyopathy Chronic HFrEF (heart failure with reduced ejection fraction) Diabetes mellitus with hyperglycemia DM (diabetes mellitus) type II uncontrolled with eye manifestation Surgical History History of implantable cardiac defibrillator (ICD) History of radiation therapy History of reduction surgery of left breast History of removal of cyst History of lumpectomy of right breast Family History Father Medical history unknown Mother No problems noted. Social History Housing: House Alcohol intake: current Alcohol intake frequency: holidays/special occasions only Patient Tobacco Use Status: Former Tobacco user e-Cigarette/Vaping Use: Never Used Second Hand Smoke Exposure: Yes Substance Use Type: Marijuana service: No Current occupational status: disabled Cognitive needs: No Hearing needs: No Vision needs: Yes (glasses) Questionnaire PHQ-9 Over the last 2 weeks, how often have you been bothered by any of the following problems? 1. Little interest or pleasure in doing things: several days 2. Feeling down, depressed, or hopeless: several days 3. Trouble falling or staying asleep, or sleeping too much: several days 4. Feeling tired or having little energy: several days 5. Poor appetite or overeating: several days 6. Feeling bad about yourself - or that you are a failure or have let yourself or your family down: not at all 7. Trouble concentrating on things, such as reading the newspaper or watching television: not at all 8. Moving or speaking so slowly that other people could have noticed. Or the opposite - being so fidgety or restless that you have been moving around a lot more than usual: not at all 9. Thoughts that you would be better off or of hurting yourself in some way: not at all Total score: 5 Depression Screening Interpretation: Positive Depression Screening Follow-up: Existing condition, In treatment and New Medication prescribed Depression Screening Done: Yes 78544 - PHQ-9 Billing: Yes Source: Developed by Drs. Quinn Nieves, Evangelina White, Uzair Beard and colleagues, with an educational antonietta from [employer]. Thrive Questionnaire Date Thrive assessed: 12/17/24 I am a: Patient What is your living situation today?: I have a steady place to live Within the past 12 months, did the food you bought not last and you didn't have the money to get more?: Never true Within the past 12 months, did you worry whether your food would run out before you got money to buy more?: Never true Do you have trouble paying for medicines?: I choose not to answer this question Do you have trouble getting transportation to medical appointments?: No Do you have trouble paying your heating and electricity bill?: I choose not to answer this question Do you have trouble taking care of your child, family member or friend?: No Do you have trouble with day-to-day activities such as bathing, preparing meals, shopping, managing finances, etc.?: No Are you currently unemployed and looking for a job?: No Are you interested in more education?: No Please select the resources that you would like help with: None Currently or been in a relationship where the following occur: I choose not to answer THRIVE Score: 0 AUDIT C Alcohol Use Questionnaire (AUDIT-C) 1. How often do you have a drink containing alcohol?: Never 3. How often do you have six or more drinks on one occasion?: Never Total Score: 0 Score Reviewed/Action Taken: Yes VINAY-7 AMB Questionnaire VINAY-7 Date VINAY - 7 assessed: 12/17/24 Feeling nervous, anxious, or on edge: 3 = Nearly every day Not being able to stop or control worryin = Nearly every day Worrying too much about different things: 3 = Nearly every day Trouble relaxin = Nearly every day Being so restless that it is hard to sit still: 1 = Several days Becoming easily annoyed or irritable: 1 = Several days Feeling afraid as if something awful might happen: 0 = Not at all Total VINAY-7 score (0-4 normal; 5-9 mild; 10-14 moderate; 15-21 severe): 14 Source: Developed by Drs. Quinn Nieves, Evangelina White, Uzair Beard and colleagues, with an educational antonietta from [employer]. Review of Systems Const Denies chills, Reports difficulty sleeping, Reports fatigue, Denies fever(s) and Denies headache(s) ENT Reports dysphagia (see HPI), Denies dizziness, Denies otalgia, Denies headache(s), Reports nasal congestion (ecurrent), Denies neck pain, Reports odynophagia (see HPI) and Reports sore throat Card Denies chest pain, Denies palpitations and Denies dyspnea Resp Denies chest congestion, Denies cough and Denies dyspnea GI Denies abdominal pain, Denies constipation, Reports dysphagia (see HPI), Denies heartburn, Denies diarrhea, Denies nausea, Reports odynophagia (see HPI) and Denies vomiting Denies difficulty voiding, Denies nocturia, Denies dysuria and Denies urinary urgency Musc Denies back pain and Denies neck pain Skin/Breast Denies rash Neuro Denies dizziness and Denies headache(s) Psych Reports anxiety and Reports depression (increasing) Endo Reports fatigue and Denies palpitations Physical exam (Primary Care) Vital Signs: Last Vital Signs Pulse 80 12/17/24 15:14 BP 138/70 12/17/24 15:14 Pulse Ox 95 12/17/24 15:14 Oxygen Delivery Method Room Air 12/17/24 15:14 BMI result Body Mass Index 25.5 Tobacco/Smoking Status: Tobacco use Status Tobacco use date assessed 12/17/24 12/17/24 15:21 Patient Tobacco Use Status Former Tobacco user 12/17/24 15:21 e-Cigarette/Vaping Use Never Used 12/17/24 15:21 PHQ-9: PHQ-9 Score PHQ-9: Total score 5 12/17/24 15:36 Depression Screening Interpretation: Positive Depression Screening Follow-up: Existing condition, In treatment and New Medication prescribed Thrive Assessment: Date of Thrive Assessment Date Thrive assessed 12/17/24 12/17/24 15:21 Currently or been in a relationship where the following occur: I choose not to answer Const General: no acute distress and alert HENMT Ears: TM's normal bilaterally and EAC's normal Throat: Yes posterior oropharynx normal and Yes tonsils normal (no TP congestion noted) Neck Neck: Yes supple and No lymphadenopathy Thyroid: Thyroid normal Resp Auscultation: clear to auscultation bilaterally, no crackles, no rales and no wheezes Cardio Rate: regular rate Rhythm: regular rhythm Heart sounds: no murmurs GI Palpation (GI): Soft to palpation and nontender Auscultation: normal bowel sounds General: Yes no CVA tenderness Back/Spine/Pelvis Back: no CVA tenderness Thoracic/Lumbar Spine: No lumbar spinal tenderness Skin Rashes: no rashes Extrem General: Yes no clubbing, cyanosis or edema Coding Level of Care Code Est Pt Level 4 (51744) Complex EM visit Add On G2211 Diagnoses Moderate persistent asthma without complication J45.40 Asthma severity: moderate Asthma persistence: persistent Asthma complication type: uncomplicated Dysphagia, unspecified type R13.10 Dysphagia type: unspecified Type 2 diabetes mellitus with hyperglycemia, with long-term current use of insulin E11.65; Z79.4 Diabetes mellitus ad terminal makeup operator insulin use: with mcfp use Diabetes mellitus type: type 2 Chronic HFrEF (heart failure with reduced ejection fraction) I50.22 Non-ischemic cardiomyopathy I42.8 Benign essential hypertension I10 Pure hypercholesterolemia E78.00 Constipation, unspecified constipation type K59.00 Constipation type: unspecified constipation type Hyperkalemia E87.5 Allergic rhinitis, unspecified seasonality, unspecified trigger J30.9 Allergic rhinitis seasonality: unspecified Allergic rhinitis trigger: unspecified Insomnia, unspecified type G47.00 Insomnia type: unspecified Anxiety and depression F41.9; F32.9 Additional Codes PHQ-9 - 63085 - PHQ-9 Billing: Yes ([id number]) Assessment & Plan Assessment & Plan (1) Asthma: Code(s): J45.909 - Unspecified asthma, uncomplicated Category: Medical Qualifiers: Asthma severity: moderate Asthma persistence: persistent Asthma complication type: uncomplicated Qualified Code(s): J45.40 - Moderate persistent asthma, uncomplicated Plan: Controlled currently Continue Flovent HFA 220 mcg 1 inhalation BID and ProAir HFA 2 inhalations every 6 hours as needed (2) Dysphagia: Code(s): R13.10 - Dysphagia, unspecified Category: Medical Qualifiers: Dysphagia type: unspecified Qualified Code(s): R13.10 - Dysphagia, unspecified Plan: Will send patient for a barium swallow for further evaluation (3) Diabetes mellitus with hyperglycemia: Code(s): E11.65 - Type 2 diabetes mellitus with hyperglycemia Category: Medical Qualifiers: Diabetes mellitus mcfp insulin use: with ad terminal makeup operator use Diabetes mellitus type: type 2 Qualified Code(s): E11.65 - Type 2 diabetes mellitus with hyperglycemia; Z79.4 - ad terminal makeup operator (current) use of insulin Plan: Her in-office HgbA1c was at 6.9% a few months ago - goal is at least < 7.0% Reinforced diabetic diet Continue Glipizide ER 2.5 mg QD, Lantus Solostar 10 units Q HS and Trulicity 1.5 mg SQ once a week for now Patient states that she will go and get her follow up labs done [facility] (4) Chronic HFrEF (heart failure with reduced ejection fraction): Comment: Chronic, compensated, NYHA class 3 stage C Has ICD for primary prevention Code(s): I50.22 - Chronic systolic (congestive) heart failure Category: Medical Plan: Patient currently appears compensated from a cardiac standpoint Reinforced fluid restriction Continue Furosemide 40 mg Q AM and 20 mg Q PM, Entresto 97-103 mg BID and Ivabradine 5 mg BID (is on Ivabradine for sinus tachycardia in the setting of NYHA class 3 HF and high resting HR despite being on maximally tolerated BB - higher dose BB resulted in severe depression) Follow up with cardiology at [facility] as scheduled (5) Non-ischemic cardiomyopathy: Comment: Presumed etiology of her cardiomyopathy are either hypertension or related to her chemoradiation therapy for breast cancer years ago Code(s): I42.8 - Other cardiomyopathies Category: Medical Plan: Continue Metoprolol ER 12.5 mg QD and Aspirin 81 mg QD Follow up with cardiology at [facility] as scheduled (6) Benign essential hypertension: Code(s): I10 - Essential (primary) hypertension Category: Medical Plan: Reinforced low sodium diet - goal is systolic BP of 120 mm or less Continue Metoprolol ER 12.5 mg QD and Amlodipine 5 mg QD Patient is reminded to continue monitoring her blood pressure regularly (7) Pure hypercholesterolemia: Code(s): E78.00 - Pure hypercholesterolemia, unspecified Category: Medical Plan: Patient was not able to get her follow up labs done yet but states that she will try to get them done [facility] Reinforced low cholesterol diet Continue Pravastatin 20 mg QD Will recheck her labs and fasting lipids again in 4 month for follow up (8) Constipation: Code(s): K59.00 - Constipation, unspecified Category: Medical Qualifiers: Constipation type: unspecified constipation type Qualified Code(s): K59.00 - Constipation, unspecified Plan: Patient is encouraged again on increased oral fluids and dietary fiber Continue Senna 8.6 mg 1 to 2 tablets QD PRN (9) Hyperkalemia: Code(s): E87.5 - Hyperkalemia Category: Medical Plan: Her serum potassium level was normal at 4.2 when her labs were last done in August 2024 Continue Patiromer 8.4 gm QD and Sodium polystyrene sulfonate 15 gm/60 ml every -- (10) Allergic rhinitis: Code(s): J30.9 - Allergic rhinitis, unspecified Category: Medical Qualifiers: Allergic rhinitis seasonality: unspecified Allergic rhinitis trigger: unspecified Qualified Code(s): J30.9 - Allergic rhinitis, unspecified Plan: Continue OTC Loratadine 10 mg QD PRN or Cetirizine 10 mg QD PRN Fluticasone 50 mcg nasal spray QD PRN helps as well - Rx refilled (11) Insomnia: Code(s): G47.00 - Insomnia, unspecified Category: Medical Qualifiers: Insomnia type: unspecified Qualified Code(s): G47.00 - Insomnia, unspecified Plan: Sleep hygiene reinforced Continue Trazodone 50 to 100 mg Q HS PRN for now She is advised that her sleep may get better once her depression is better controlled (12) Anxiety and depression: Code(s): F41.9 - Anxiety disorder, unspecified; F32.9 - Major depressive disorder, single episode, unspecified Category: Medical Plan: Continue Mirtazapine 45 mg Q HS Will start her additionally on Bupropion XL 150 mg QD Follow up with psychiatry as scheduled Plan Follow up in 4 months Orders: Orders [place] barium swallow 12/17/24 R13.10 - Dysphagia, unspecified Complete Blood Count Auto Diff 4 Months D64.9 - Anemia, unspecified Lipid Panel 4 Months E78.00 - Pure hypercholesterolemia, unspecified UA CC w/rflx Micro + Cult 4 Months R30.0 - Dysuria TSH reflex Free T4 4 Months E78.00 - Pure hypercholesterolemia, unspecified Vitamin D 25-OH Total 4 Months E55.9 - Vitamin D deficiency, unspecified Vitamin B12 and Folate 4 Months E53.8 - Deficiency of other specified B group vitamins Comprehensive [place]. Panel Fast 4 Months E78.00 - Pure hypercholesterolemia, unspecified Microalbumin, Random (w Creat) 4 Months E11.9 - Type 2 diabetes mellitus without complications Hemoglobin A1c 4 Months E11.9 - Type 2 diabetes mellitus without complications Medications: New bupropion HCl XL 150 mg PO QAM 30 days 30 tabs 3RF fluticasone propionate 50 mcg/actuation 1 spray intranasal BID 16 grams 3RF
== END 2024-12-17 15:54 | disposition home or self-care (01) ==
LOC: HO.HMCH 15:09
PROVIDERS: PCP Internal Medicine; Visit Provider Internal Medicine
DX: E11.65 Type 2 diabetes mellitus with hyperglycemia (principal); I50.22 Chronic systolic (congestive) heart failure; Z79.4 Long term (current) use of insulin; I42.8 Other cardiomyopathies; J45.40 Moderate persistent asthma, uncomplicated; R13.10 Dysphagia, unspecified; I10 Essential (primary) hypertension; E78.00 Pure hypercholesterolemia, unspecified; K59.00 Constipation, unspecified; E87.5 Hyperkalemia; J30.9 Allergic rhinitis, unspecified; G47.00 Insomnia, unspecified

== ENCOUNTER → 2024-12-17 15:08 | Outpatient (BNVA) | payer MEDICARE, OTHER, SELFPAY | PROVIDERS: PCP Internal Medicine; Visit Provider Internal Medicine | DX: J45.40 Moderate persistent asthma, uncomplicated (principal); R13.10 Dysphagia, unspecified; E11.65 Type 2 diabetes mellitus with hyperglycemia; I42.8 Other cardiomyopathies; I11.0 Hypertensive heart disease with heart failure; I50.22 Chronic systolic (congestive) heart failure; E78.00 Pure hypercholesterolemia, unspecified; J30.9 Allergic rhinitis, unspecified; E87.5 Hyperkalemia; G47.00 Insomnia, unspecified; F41.9 Anxiety disorder, unspecified; F32.9 Major depressive disorder, single episode, unspecified; Z79.4 Long term (current) use of insulin | CPT/HCPCS: 96127; 99212 ==

== ENCOUNTER 2025-04-12 07:20 | Outpatient (REF) | payer MEDICARE, OTHER, SELFPAY ==
--- OUTSIDE RECORDS SUMMARY | 2023-11-26 12:00 | XMS_ITS ---
Author Organization [facility] Address [address] [place] [address] Care Team Providers Care Mud Tank Operator Name Role Phone Arthur Pro MD Primary Care Provider Unava ilCristopher Torres Unavailable [phone] Melo Encounters Encounter Location Date [facility] [address] [address] 11/26/2023 Cristopher Lawrence Plan Of Treatment Next Appt Details Provider Name:Cristopher Lawrence , 03/08/2026 08:30:00 AM, [address] [place] [address], [phone], Progress Notes * Phyllis PINADOB:[birth year] (65 yo F)Acc No.[id number]:11/26/2023 Progress Note Patient: Colleen JERRYanita Provider: Nancy Lawrence DPM :1960 A ge:63 Y S ex:Female Date:11/26/2023 Address:[address] [place] [phone] Pcp:Arthur Pro MD Subjective: * Chief Complaints: [...] 0 11/26/2023 Generated for Ignacio Sosa on: 04/12/2025 07:23 AM EDT
--- OUTSIDE RECORDS SUMMARY | 2023-12-08 11:00 | XMS_ITS ---
Author Organization [facility] Address [address] [place] [address] Care Team Providers Care Coordinator Of Library Services Name Role Phone Arthur Pro MD Primary Care Provider Unava Cristopher Choudhury Unavailable [phone] Melo Encounters Encounter Location Date [facility] [address] [address] 12/08/2023 Cristopher Lawrence Plan Of Treatment Next Appt Details Provider Name:Cristopher Lawrence , 03/08/2026 08:30:00 AM, [address] [place] [address], [phone], Progress Notes * Phyllis PINADOB:[birth year] (65 yo F)Acc No.[id number]:12/08/2023 Progress Note Patient: Ebonie JERRYta Provider: Nancy Lawrence DPM :1960 A ge:63 Y S ex:Female Date:12/08/2023 Address:[address] [place] [phone] Pcp:Arthur Pro MD Subjective: * Chief Complaints: [...] 12/08/2023 Generated for Ignacio matias/Mariaa/[place]ina on: 0 04/12/2025 07:24 AM EDT
--- OUTSIDE RECORDS SUMMARY | 2024-01-26 11:30 | XMS_ITS ---
Author Organization [facility] Address [address] [place] [address] Care Team Providers Care Tech Ed Teacher Name Role Phone Arthur Pro MD Primary Care Provider Unava ilCristopher Torres Unavailable [phone] Encounters Encounter Location Date [facility] [address] [address] 01/26/2024 Cristopher Lawrence Plan Of Treatment Next Appt Details Provider Name:Cristopher Lawrence , 03/08/2026 08:30:00 AM, [address] [place] [address], [phone], Progress Notes * Phyllis PINADOB:[birth year] (65 yo F)Acc No.[id number]:01/26/2024 Progress Note Patient: Colleen JERRYanita Provider: Nancy Lawrence DPM :1960 A ge:63 Y S ex:Female Date:01/26/2024 Address:[address] [place] [address] Pcp:Arthur Pro MD Subjective: * Chief Complaints: [...] Date: 01/26/2024 Generated for Ignacio Sosa on: 04/12/2025 07:23 AM EDT
--- NOTE | ~2025-04-12 | FL_ITS ---
EXAMINATION: XR FLUOROSCOPY BARIUM SWALLOW CLINICAL INFORMATION: GERD symptoms, episodic dysphasia and epigastric pain. COMPARISON: None TECHNIQUE: Fluoroscopic air contrast barium swallow examination was performed utilizing standard techniques with thin and thick barium and effervescent granules. Numerous spot images were obtained. Several fluoroscopic image hold cine sequences were also obtained. FINDINGS: BARIUM SWALLOW: Lateral cine images of the oropharynx and hypopharynx demonstrate normal swallow mechanism with normal epiglottic inversion and soft palate elevation. No laryngeal penetration, glottic or subglottic aspiration identified. No nasopharyngeal reflux present. Hypopharyngeal structures appear normal without evidence of mass or diverticulum. There was no significant cricopharyngeal achalasia. Dual and single contrast images of the esophagus demonstrate normal caliber, contour, and mucosal pattern. No evidence of stricture, mass, or ulcerations identified. Esophageal peristalsis was mild to moderately disordered. There is a small type I hiatus hernia. No definite gastroesophageal reflux was noted during the course of the examination. Dual contrast and single contrast images of the stomach demonstrated normal contour. No evidence of gross mass or ulcer. Mild thickening of the area gastricae noted, finding which could relate to mild gastritis. Normal rugal fold pattern. Contrast freely passed into the gastric antrum and duodenal bulb without delay. Incidental note made of Single-lead defibrillator present in the right ventricle. FLUOROSCOPY TIME: 3 minutes, 3 seconds Number of Spot Images:9 Number of cines obtained: 9 DOSE AREA PRODUCT: 2836 uGy-m2 (microgray-meter squared) FL/FL barium swallow IMPRESSION: 1. Mild to moderately disordered esophageal peristalsis. 2. Small type I hiatus hernia present. 3. No definite gastroesophageal reflux noted during the course of the examination. 4. Mild prominence of the area gastricae of the stomach, a finding which could relate to mild gastritis. Electronically signed by: John Ogden MD 04/12/2025 09:29 AM EDT
--- OUTSIDE RECORDS SUMMARY | 2025-04-12 07:24 | XMS_ITS | Patient Health Record ---
Author Organization [facility] Purvis[facility]re[facility] Address [address] [place] [address] Care Team Providers Care Treasury Analyst Name Role Phone Morteza SAEED, [place] Primary Care Provider Cristopher Valera Unavailable [phone] Allergies No Known Allergies Results Component Value Reference Range Notes HEMOGLOBIN A1C (GLYCOHEMOGLO BIN) Reviewed date:03/07/2025 08:42:40 AM Interpretation: Performing Lab: Notes/Report: HEMOGLOBIN A1C % (HH) 7.2 Reason For Referral No Information Medications Medication SIG (Take, Route, Frequency, Duration) Notes Start Date End Date Status ProAir HFA 108 (90 Base) MCG/ACT (Prior Auth: Rx Ref#:[id number]) Inhalation; Duration: 25 Active Jardiance 10 MG 1 tablet Orally Once a day Not-Taking Mirtazapine 30 MG (Prior Auth: Rx Ref#:[id number]) Orally Once a day Active Yuvafem 10 MCG (Prior Auth: Rx Ref#:[id number]) Vaginal; Duration: 84 Not-Taking Trulicity Active traZODone HCl 100 MG as directed Orally Once a day Active glipiZIDE XL 2.5 MG (Prior Auth: Rx Ref#:[id number]) Oral; Duration: 90 Active Sertraline HCl 25 MG (Prior Auth: Rx Ref#:[id number]) Oral; Duration: 30 Not-Taking Furosemide 20 MG (Prior Auth: Rx Ref#:[id number]) Oral; Duration: 90 PRN Not-Taking metroNIDAZOLE 0.75 % (Prior Auth: Rx Ref#:[id number]) Vaginal; Duration: 5 Not-Taking Metoprolol Succinate Active Valved Holding Chamber - (Prior Auth: Rx Ref#:[id number]); Duration: 30 Not-Taking Lantus SoloStar Acti ve Sulfamethoxazole-Trimetho prim 800-160 MG (Prior Auth: Rx Ref#:[id number]) Oral; Duration: 5 Not-Taking Digoxin 125 MCG (Prior Auth: Rx Ref#:[id number]) Oral; Duration: 90 Not-Taking Dicyclomine HCl 10 MG (Prior Auth: Rx Ref#:[id number]) Oral; Duration: 30 Active Fluticasone Propionate 50 MCG/ACT 2 spray in each nostril Nasally Once a day Active Fluconazole 150 MG (Prior Auth: Rx Ref#:[id number]) Oral; Duration: 3 Not-Taking Flovent HFA 220 MCG/ACT (Prior Auth: Rx Ref#:[id number]) Inhalation; Duration: 30 Active Clotrimazole 1 % (Prior Auth: Rx Ref#:[id number]) External; Duration: 7 Not-Taking Extra Depth Orthopedic Shoes (1 Pair) with Customized Heat Molded Multidensity Innersoles (3 Pair) as directed Dx: NIDDM (E11.9), Hammertoe Foot Deformity (M20.41,M20.42), Preulcerative Skin Lesion(s) (L85.1) Active Corlanor 5 MG 1 tablet with meals Orally Twice a day; Duration: 30 day(s) Active Spironolactone 25 MG (Prior Auth: Rx Ref#:[id number]) Oral; Duration: 90 Active Atorvastatin Calcium 80 MG 1 tablet Orally Once a day Active Pravastatin Sodium 20 MG (Prior Auth: Rx Ref#:[id number]) Oral; Duration: 90 Active Estring 2 MG as directed Vaginal Not-Taking Meloxicam 15 MG (Prior Auth: Rx Ref#:[id number]) Oral; Duration: 90 Not-Taking Entresto 97-103 MG (Prior Auth: Rx Ref#:[id number]) Oral; Duration: 90 Active Vitamin D-3 1000 UNIT 1 capsule Orally O nce a day Not-Taking Jardiance 25 MG 1 tablet Orally Once a day Not-Taking toprol Not-Taking Omeprazole 20 MG 1 capsule Orally Onc e a day Not-Taking Aspir-81 81 MG 1 tablet Orally Once a day Active Multivitamin Not-Niles ing amLODIPine Besylate Active Vagifem Not-Taking Cinnamon Not-Taking metFORMIN HCl ER 500 MG (Prior Auth: Rx Ref#:[id number]) Oral; Duration: 90 Not-Taking rOPINIRole HCl 0.5 MG 1 tablet 1 to 3 ho urs before bedtime Orally Once a day; Duration: 30 day(s) Not-Taking Estrogens Conjugated OTC Not-Taking Immunizations Vaccine Route Administration Date Status Comme nts Influenza Unknown 07/28/2017 Administered Influenza Unknown 04/07/2018 Administered Influenza Unknown 07/05/2019 Administered COVID-19 Moderna Vaccine Unknown 11/04/2020 Administere d 10/06/20 Social History Tobacco Use: Social History Observation Description Date Details (start date - stop date) Never Smoker NA - NA Alcohol Screen Question Answer Notes Did you have a drink containing alcohol in the p ast year? No Points 0 Interpretation Negative Tobacco use other than smoking: Question Answer Notes Are you an other tobacco user? No Tobacco Control (Standard) Question Answer Notes Tobacco use: Nonsmoker Additional Findings: Tobacco non-user Current no nsmoker AUDIT-C (Standard) Question Answer Notes Did you have a drink containing alcohol in the p ast year? No Points 0 Interpretation Negative Problems Problem Type SNOMED Code ICD Code Onset Dates Problem Status W/U Status Risk Notes Problem Acquired hammer toe of right foot (657672447236861 5) Other hammer toe(s) (acquired), right foot (M20.41) Active confirmed Problem Acquired hammer toe of left foot (932410214360577 3) Other hammer toe(s) (acquired), left foot (M20.42) Active confirmed Problem Type II diabetes mellitus without complication (561631219) Type 2 diabetes mellitus without complications (E11.9) Active confirmed Vital Signs Blood pressure diastolic 60 mm Hg 03/07/2025 Height 5ft 3in in 03/07/2025 Blood pressure systolic 125 mm Hg 03/07/2025 Weight 134 lbs 03/07/2025 BMI 23.73 kg/m2 03/07/2025 Encounters Encounter Location Date Provider Diagnosis [facility] [address] [address] 03/07/2025 Cristopher Lawrence Other hammer toe(s) (acquired), right foot M20.41 ; Other hammer toe(s) (acquired), left foot M20.42 and Type 2 diabetes mellitus without complications E11.9 Assessments Encounter Date Diagnosis (ICD Code) Assessment Notes Treatment Notes Treatment Clinical Notes Section Notes 03/07/2025 Other hammer toe(s) (acquired), right foot (ICD-10 - M20.41) Patient Educated with: DIABETIC FOOT CARE INSTRUCTIONS.p df (DIABETIC FOOT CARE INSTRUCTIONS.p df) 03/07/2025 Other hammer toe(s) (acquired), left foot (ICD-10 - M20.42) 03/07/2025 Type 2 diabetes mellitus without complications (ICD-10 - E11.9) Plan Of Treatment Next Appt Details Provider Name:Cristopher Lawrence , 03/08/2026 08:30:00 AM, [address], [address], [place], [address], Insurance Providers Payer Name Payer Address Payer Phone Subscriber Number Group Number Insured Name Patient Relationship to Insured Coverage Start Date Coverage End Date [employer] [address] [place] [address] [id number] Phyllis Howard Self - patient is the insured 9 Standard [address] [place] [address] [id number] Zac Howard Spouse - patient is the [...] 10/08 23 Hospitalization History Reason Date(Month/Year) @ [facility] removed fluid from lungs 03/22 018 [facility] Congestive heart failure 02/20/2015
[2025-04-12 08:27] LABS: Hemoglobin A1C 206.3825 umol/L; Total Hemoglobin (HGBA1C) 3602.4114 umol/L
[2025-04-12 08:32] LABS: UACC Culture Trigger YES
== END 2025-04-12 07:21 | disposition home or self-care (01) ==
LOC: HO.XRAY 07:20
PROVIDERS: PCP Internal Medicine; Visit Provider Internal Medicine
DX: E11.9 Type 2 diabetes mellitus without complications (principal); R13.10 Dysphagia, unspecified; E78.00 Pure hypercholesterolemia, unspecified; E55.9 Vitamin D deficiency, unspecified; E53.8 Deficiency of other specified B group vitamins; D64.9 Anemia, unspecified; R30.0 Dysuria
CPT/HCPCS: 36415; 74220; 80053; 80061; 81001; 82043; 82306; 82570; 82607; 82746; 83036; 84443; 85025; 87086; 87147

== ENCOUNTER → 2025-04-12 07:43 | Outpatient (BNV) | payer MEDICARE, OTHER, SELFPAY | PROVIDERS: PCP Internal Medicine; Visit Provider Radiology Diagnostic Radiology | DX: K44.9 Diaphragmatic hernia without obstruction or gangrene (principal); K22.89 Other specified disease of esophagus; R13.10 Dysphagia, unspecified | CPT/HCPCS: 74221 ==

== ENCOUNTER 2025-04-19 15:04 | Outpatient (AMB) | payer MEDICARE, OTHER, SELFPAY ==
--- OUTSIDE RECORDS SUMMARY | 2023-11-26 12:00 | XMS_ITS ---
Author Organization [facility] Address [address] [place] [address] Care Team Providers Care Child Support Specialist Name Role Phone Arthur Pro MD Primary Care Provider Unava ilCristopher Torres Unavailable [phone] Melo Encounters Encounter Location Date [facility] [address] [address] 11/26/2023 Cristopher Lawrence Plan Of Treatment Next Appt Details Provider Name:Cristopher Lawrence , 03/08/2026 08:30:00 AM, [address] [place] [address], [phone], Progress Notes * Phyllis PINADOB:[birth year] (65 yo F)Acc No.[id number]:11/26/2023 Progress Note Patient: Colleen JERRYanita Provider: Nancy Lawrence DPM :1960 A ge:63 Y S ex:Female Date:11/26/2023 Address:[address] [place] [phone] Pcp:Arthur Pro MD Subjective: * Chief Complaints: * [address] Melo. * Medical History: Objective: * Vitals: Assessment: Plan: * Treatment: * Images: * The named appointment provid er may or may not be the originator of this progress note, and it is not deemed complete until electronically signed by the appointment provider. Sign off status: Pending * Provider: Nancy Lawrence DPM Date: 0 11/26/2023 Generated for Ignacio Sosa on: 0 04/19/2025 04:27 PM EDT
--- OUTSIDE RECORDS SUMMARY | 2023-12-08 11:00 | XMS_ITS ---
Author Organization [facility] Address [address] [place] [address] Care Team Providers Care Test Preparer Name Role Phone Arthur Pro MD Primary Care Provider Unava Cristopher Choudhury Unavailable [phone] Melo Encounters Encounter Location Date Provider [facility] [address] [address] 12/08/2023 Cristopher Lawrence Plan Of Treatment Next Appt Details Provider Name:Cristopher Lawrence , 03/08/2026 08:30:00 AM, [address] [place] [address], [phone], Progress Notes * Phyllis PINADOB:[birth year] (65 yo F)Acc No.[id number]:12/08/2023 Progress Note Patient: Ebonie JERRYta Provider: Nancy Lawrence DPM :1960 A ge:63 Y S ex:Female Date:12/08/2023 Address:[address] [place] [address] Pcp:Arthur Pro MD Subjective: * Chief Complaints: * [address] Mel[address]. * Medical History: A nxiety disorder, Asthma, Cardiomyopathy, Cervical cancer, Chicken pox, Depression, Heart disease, Hyperlipid, Hypertension, Measles, type II diabetes, Reflux ( GERD), Varicose Veins. Objective: * Vitals: Assessment: Plan: * Treatment: * Images: * The named appointment provid er may or may not be the originator of this progress note, and it is not deemed complete until electronically signed by the appointment provider. Sign off status: Pending * Provider: Nancy Lawrence DPM Date: 0 12/08/2023 Generated for Ignacio matias/Mariaa/[place] on: 0 04/19/2025 04:27 PM EDT
--- OUTSIDE RECORDS SUMMARY | 2024-01-26 11:30 | XMS_ITS ---
Author Organization [facility] Address [address] [place] [address] Care Team Providers Care Qlikview Developer Name Role Phone Arthur Pro MD Primary Care Provider Unava ilCristopher Torres Unavailable [phone] Encounters Encounter Location Date [facility] [address] [address] 01/26/2024 Cristopher Lawrence Plan Of Treatment Next Appt Details Provider Name:Cristopher Lawrence , 03/08/2026 08:30:00 AM, [address] [place] [address], [phone], Progress Notes * Phyllis PINADOB:[birth year] (65 yo F)Acc No.[id number]:01/26/2024 Progress Note Patient: Colleen JERRYanita Provider: Nancy Lawrence DPM :1960 A ge:63 Y S ex:Female Date:01/26/2024 Address:[address] [place] [phone] Pcp:Arthur Pro MD Subjective: * Chief Complaints: * * Medical History: A nxiety disorder, Asthma, [...] Pending * Provider: Nancy Lawrence DPM Date: 01/26/2024 Generated for Ignacio Sosa on: 04/19/2025 04:27 PM EDT
[2025-04-19 15:08] VITALS: BP 116/80; PULSE 65; O2SAT 96; BMI 25.2
--- NOTE | 2025-04-19 15:08 | MHC.PC.OV ---
Vital Signs 04/19/25 15:08 Height 5 ft 3 in Weight 142 lb 4 oz BMI 25.2 BP 116/80 Blood Pressure Location Lt brachial Position Sitting Pulse 65 Pulse Source Pulse Oximeter Pulse Oximetry (%) 96 Oxygen Delivery Method Room Air Intake Visit Reasons: 4 months Computer Security Manager Required: No Accompanied by: Self / Same As Patient Allergies No Known Allergies Allergy (Verified 04/19/25 16:02) Medication List - Last Reconciled 04/19/25 by Arthur Pro MD albuterol sulfate 90 mcg/actuation 2 puffs inhalation Q6H PRN 30 days amlodipine 5 mg PO DAILY aspirin 81 mg PO DAILY atorvastatin 10 mg PO BEDTIME 90 days [BD Ultra Fine Micro Pen Needle 32 gauge x Use as directed] bupropion HCl XL 150 mg PO QAM 30 days dulaglutide 1.5 mg (0.5 mL) subcut QWEEK 3 months estradiol 0.01%(0.1mg/gram) vaginal flash glucose scanning reader ([employer] Zoila 14 Day [place]) As directed flash glucose sensor ([employer] Zoila 14 Day Sensor kit) As directed fluticasone propionate 50 mcg/actuation 1 spray intranasal BID fluticasone propionate 220 mcg/actuation 2 puffs inhalation BID furosemide 40 mg Q AM and 20 mg Q PM PO; glipizide 5 mg PO DAILY 90 days insulin glargine (Lantus Solostar U-100 Insulin) 10 units (0.1 mL) subcut QPM ivabradine 5 mg PO BID 90 days metoprolol succinate ER 12.5 mg (1/2 x 25 mg) PO DAILY 90 days mirtazapine 45 mg PO BEDTIME 90 days pen needle, diabetic USE DIRECTED sacubitril-valsartan 97-103 mg (Entresto) 1 tab PO BID spironolactone 25 mg PO DAILY trazodone 100 mg PO BEDTIME PRN 90 days Tobacco use date assessed: 04/19/25 Fall risk assessment: No Falls in past year Last assessed Fall Risk: 04/19/25 Dental Screening Dental Screen Date: 04/19/25 Did you have a dental visit in the last 12 months?: No Did you have a dental problem in the last 6 months where you did not have access to dental care?: No Was dental information given to patient?: No HPI 4 months HPI Details Patient comes in today for her follow-up visit States that she is still experiencing recurrent painful sensations in her chest area whenever she is swallowing and she's had to drink some water to help push the food down, after which her symptoms would then be relieved States that she had her barium swallow done last week and is anxious to find out what her test showed She denies any headaches or dizziness Denies any exertional chest pains, no increased shortness of breath No nausea/vomiting, no abdominal pain No change in bowel habits noted She had her follow-up labs done last week - to discuss her results [facility] Medical History (Updated 04/19/25 @ 16:21 by Arthur Pro MD) Asthma Cerumen impaction Cardiac defibrillator in place Hyperkalemia Anxiety and depression Depression Anxiety Insomnia Mild intermittent asthma Pure hypercholesterolemia Benign essential hypertension Non-ischemic cardiomyopathy Chronic HFrEF (heart failure with reduced ejection fraction) Diabetes mellitus with hyperglycemia DM (diabetes mellitus) type II uncontrolled with eye manifestation Surgical History History of implantable cardiac defibrillator (ICD) History of radiation therapy History of reduction surgery of left breast History of removal of cyst History of lumpectomy of right breast Family History Father Medical history unknown Mother No problems noted. Social History Housing: House Alcohol intake: current Alcohol intake frequency: holidays/special occasions only Patient Tobacco Use Status: Former Tobacco user e-Cigarette/Vaping Use: Never Used Second Hand Smoke Exposure: Yes Substance Use Type: Marijuana service: No Current occupational status: disabled Cognitive needs: No Hearing needs: No Vision needs: Yes (glasses) Questionnaire PHQ-9 Over the last 2 weeks, how often have you been bothered by any of the following problems? Depression Screening Interpretation: Positive Depression Screening Follow-up: Existing condition, In treatment and New Medication prescribed Depression Screening Done: Yes Source: Developed by Drs. Quinn Nieves, Evangelina White, Uzair Beard and colleagues, with an educational antonietta from [employer]. Thrive Questionnaire Date Thrive assessed: 12/17/24 I am a: Patient What is your living situation today?: I have a steady place to live Within the past 12 months, did the food you bought not last and you didn't have the money to get more?: Never true Within the past 12 months, did you worry whether your food would run out before you got money to buy more?: Never true Do you have trouble paying for medicines?: I choose not to answer this question Do you have trouble getting transportation to medical appointments?: No Do you have trouble paying your heating and electricity bill?: I choose not to answer this question Do you have trouble taking care of your child, family member or friend?: No Do you have trouble with day-to-day activities such as bathing, preparing meals, shopping, managing finances, etc.?: No Are you currently unemployed and looking for a job?: No Are you interested in more education?: No Please select the resources that you would like help with: None Currently or been in a relationship where the following occur: I choose not to answer THRIVE Score: 0 AUDIT C Alcohol Use Questionnaire (AUDIT-C) 1. How often do you have a drink containing alcohol?: Never 3. How often do you have six or more drinks on one occasion?: Never Total Score: 0 Score Reviewed/Action Taken: Yes VINAY-7 AMB Questionnaire VINAY-7 Date VINAY - 7 assessed: 12/17/24 Source: Developed by Drs. Quinn Nieves, Evangelina White, Uzair Beard and colleagues, with an educational antonietta from [employer]. Review of Systems Const Denies chills, Reports difficulty sleeping, Reports fatigue, Denies fever(s) and Denies headache(s) ENT Reports dysphagia (see HPI), Denies dizziness, Denies otalgia, Denies headache(s), Denies neck pain, Reports odynophagia (see HPI) and Reports sore throat Card Denies chest pain, Denies palpitations and Denies dyspnea Resp Denies chest congestion, Denies cough and Denies dyspnea GI Denies abdominal pain, Denies constipation, Reports dysphagia (see HPI), Denies heartburn, Denies diarrhea, Denies nausea, Reports odynophagia (see HPI) and Denies vomiting Denies difficulty voiding, Denies nocturia, Denies dysuria and Denies urinary urgency Musc Denies back pain and Denies neck pain Skin/Breast Denies rash Neuro Denies dizziness and Denies headache(s) Psych Reports anxiety and Reports depression (increasing) Endo Reports fatigue and Denies palpitations Physical exam (Primary Care) Vital Signs: Last Vital Signs Pulse 65 04/19/25 15:08 BP 116/80 04/19/25 15:08 Pulse Ox 96 04/19/25 15:08 Oxygen Delivery Method Room Air 04/19/25 15:08 BMI result Body Mass Index 25.2 Tobacco/Smoking Status: Tobacco use Status Tobacco use date assessed 04/19/25 04/19/25 15:28 Patient Tobacco Use Status Former Tobacco user 04/19/25 15:12 e-Cigarette/Vaping Use Never Used 04/19/25 15:12 Depression Screening Interpretation: Positive Depression Screening Follow-up: Existing condition, In treatment and New Medication prescribed Thrive Assessment: Date of Thrive Assessment Date Thrive assessed 12/17/24 04/19/25 15:12 Currently or been in a relationship where the following occur: I choose not to answer Const General: no acute distress and alert HENMT Ears: TM's normal bilaterally and EAC's normal Throat: Yes posterior oropharynx normal and Yes tonsils normal (no TP congestion noted) Neck Neck: Yes supple and No lymphadenopathy Thyroid: Thyroid normal Resp Auscultation: clear to auscultation bilaterally, no crackles, no rales and no wheezes Cardio Rate: regular rate Rhythm: regular rhythm Heart sounds: no murmurs GI Palpation (GI): Soft to palpation and nontender Auscultation: normal bowel sounds General: Yes no CVA tenderness Back/Spine/Pelvis Back: no CVA tenderness Thoracic/Lumbar Spine: No lumbar spinal tenderness Skin Rashes: no rashes Extrem General: Yes no clubbing, cyanosis or edema Results Reviewed Results Reviewed: Laboratory Tests 04/12/25 04/12/25 07:25 07:36 WBC 6.6 Hgb 13.9 Hct 42.7 Plt Count 232 Sodium 143 Potassium 4.2 Creatinine 1.15 Estimated GFR 47 Fasting Glucose 133 H Hemoglobin A1c % 7.4 H Calcium 9.7 AST 25 ALT 19 Triglycerides 185 H Cholesterol 148 LDL Cholesterol, Calc 74 HDL Cholesterol 37 L Vitamin B12 487 25-OH Vitamin D Total 41.1 TSH 1.69 Ur Specific [place] 1.020 Urine Protein Negative Urine Glucose (UA) Negative Urine Blood Negative Urine Nitrite Negative Ur Leukocyte Esterase Moderate (2+) H Microalb/Creat Ratio 10.7 Coding Level of Care Code Est Pt Level 4 (73363) Diagnoses Moderate persistent asthma without complication J45.40 Asthma complication type: uncomplicated Asthma persistence: persistent Asthma severity: moderate Dysphagia, unspecified type R13.10 Dysphagia type: unspecified Type 2 diabetes mellitus with hyperglycemia, with long-term current use of insulin E11.65; Z79.4 Diabetes mellitus medical terminologist insulin use: with chcf use Diabetes mellitus type: type 2 Chronic HFrEF (heart failure with reduced ejection fraction) I50.22 Non-ischemic cardiomyopathy I42.8 Pure hypercholesterolemia E78.00 Benign essential hypertension I10 Constipation, unspecified constipation type K59.00 Constipation type: unspecified constipation type Hyperkalemia E87.5 Allergic rhinitis, unspecified seasonality, unspecified trigger J30.9 Allergic rhinitis seasonality: unspecified Allergic rhinitis trigger: unspecified Insomnia, unspecified type G47.00 Insomnia type: unspecified Anxiety and depression F41.9; F32.9 Assessment & Plan Assessment & Plan (1) Asthma: Code(s): J45.909 - Unspecified asthma, uncomplicated Category: Medical Qualifiers: Asthma complication type: uncomplicated Asthma persistence: persistent Asthma severity: moderate Qualified Code(s): J45.40 - Moderate persistent asthma, uncomplicated Plan: Controlled Continue Flovent HFA 220 mcg 1 inhalation BID and ProAir HFA 2 inhalations every 6 hours as needed (2) Dysphagia: Code(s): R13.10 - Dysphagia, unspecified Category: Medical Qualifiers: Dysphagia type: unspecified Qualified Code(s): R13.10 - Dysphagia, unspecified Plan: Her barium swallow done last week revealed (+) mild to moderately disordered esophageal peristalsis, small type I hiatus hernia with no definite gastroesophageal reflux noted during the course of the examination. Mild prominence of the area gastricae of the stomach, a finding which could relate to mild gastritis Will go ahead and start patient on Pantoprazole 40 mg QD and discussed some dietary restrictions that may help patient with her symptoms As she reports that she has been experiencing frequent symptoms of dry mouth and dry eyes, as well as her recurrent dysphagia/odynophagia symptoms, will send her for some labs OSWALDO to check for the possibility of scleroderma or other related diseases (3) Diabetes mellitus with hyperglycemia: Code(s): E11.65 - Type 2 diabetes mellitus with hyperglycemia Category: Medical Qualifiers: Diabetes mellitus chcf insulin use: with medical terminologist use Diabetes mellitus type: type 2 Qualified Code(s): E11.65 - Type 2 diabetes mellitus with hyperglycemia; Z79.4 - medical terminologist (current) use of insulin Plan: Her HgbA1c was at 7.4% on her labs done last week (was previously at 7.4% and 6.9% earlier this year) - goal is at least < 7.0% Reinforced diabetic diet Continue Glipizide ER 5 mg QD, Lantus Solostar 10 units Q HS and Trulicity 1.5 mg SQ once a week for now but advised patient we may need to make some adjustments or changes to her medications if she still can not get her diabetes back under better control Will have patient recheck her FBS and HgbA1c in 4 months for follow-up (4) Chronic HFrEF (heart failure with reduced ejection fraction): Comment: Chronic, compensated, NYHA class 3 stage C Has ICD for primary prevention Code(s): I50.22 - Chronic systolic (congestive) heart failure Category: Medical Plan: Patient currently appears compensated from a cardiac standpoint Reinforced fluid restriction Continue Furosemide 40 mg Q AM and 20 mg Q PM, Entresto 97-103 mg BID and Ivabradine 5 mg BID (is on Ivabradine for sinus tachycardia in the setting of NYHA class 3 HF and high resting HR despite being on maximally tolerated BB - higher dose BB resulted in severe depression) Follow up with cardiology at [facility] as scheduled (5) Non-ischemic cardiomyopathy: Comment: Presumed etiology of her cardiomyopathy are either hypertension or related to her chemoradiation therapy for breast cancer years ago Code(s): I42.8 - Other cardiomyopathies Category: Medical Plan: Continue Metoprolol ER 12.5 mg QD and Aspirin 81 mg QD Follow up with cardiology at [facility] as scheduled (6) Pure hypercholesterolemia: Code(s): E78.00 - Pure hypercholesterolemia, unspecified Category: Medical Plan: Results of her labs done last week reviewed and discussed with patient - she is cautioned that her serum TG level has gone up from previous and is now at 185 mg/dl This is likely in relation to her increasing hyperglycemia and declining diabetes control Reinforced low cholesterol diet Continue Pravastatin 20 mg QD for now Will recheck her labs and fasting lipids again in 4 month for follow up (7) Benign essential hypertension: Code(s): I10 - Essential (primary) hypertension Category: Medical Plan: Reinforced low sodium diet - goal is systolic BP of 120 mm or less Continue Metoprolol ER 12.5 mg QD and Amlodipine 5 mg QD Patient is reminded to continue monitoring her blood pressure regularly (8) Constipation: Code(s): K59.00 - Constipation, unspecified Category: Medical Qualifiers: Constipation type: unspecified constipation type Qualified Code(s): K59.00 - Constipation, unspecified Plan: Patient is encouraged again on increased oral fluids and dietary fiber Continue Senna 8.6 mg 1 to 2 tablets QD PRN (9) Hyperkalemia: Code(s): E87.5 - Hyperkalemia Category: Medical Plan: Her serum potassium level was normal at 4.2 on her labs done last week Continue Patiromer 8.4 gm QD and Sodium polystyrene sulfonate 15 gm/60 ml every -- (10) Allergic rhinitis: Code(s): J30.9 - Allergic rhinitis, unspecified Category: Medical Qualifiers: Allergic rhinitis seasonality: unspecified Allergic rhinitis trigger: unspecified Qualified Code(s): J30.9 - Allergic rhinitis, unspecified Plan: Continue OTC Loratadine 10 mg QD PRN or Cetirizine 10 mg QD PRN and Fluticasone 50 mcg nasal spray QD PRN (11) Insomnia: Code(s): G47.00 - Insomnia, unspecified Category: Medical Qualifiers: Insomnia type: unspecified Qualified Code(s): G47.00 - Insomnia, unspecified Plan: Sleep hygiene reinforced Continue Trazodone 50 to 100 mg Q HS PRN She is advised that her sleep may get better once her depression is better controlled (12) Anxiety and depression: Code(s): F41.9 - Anxiety disorder, unspecified; F32.9 - Major depressive disorder, single episode, unspecified Category: Medical Plan: Continue Mirtazapine 45 mg Q HS and Bupropion XL 150 mg QD - states that her current meds are helping somewhat Follow up with psychiatry as scheduled Plan Follow up in 4 months Orders: Orders Erythrocyte Sedimentation Rate 04/19/25 H04.129 - Dry eye syndrome of unspecified lacrimal gland, M79.7 - Fibromyalgia, R13.10 - Dysphagia, unspecified, R68.2 - Dry mouth, unspecified Rheumatoid Factor 04/19/25 H04.129 - Dry eye syndrome of unspecified lacrimal gland, R13.10 - Dysphagia, unspecified, R68.2 - Dry mouth, unspecified Scleroderma 70 Antibody 04/19/25 H04.129 - Dry eye syndrome of unspecified lacrimal gland, R13.10 - Dysphagia, unspecified, R68.2 - Dry mouth, unspecified NT Pro B Type Natriuretic Pept 4 Months R06.09 - Other forms of dyspnea Comprehensive [place]. Panel Fast 4 Months E78.00 - Pure hypercholesterolemia, unspecified Microalbumin, Random (w Creat) 4 Months E11.9 - Type 2 diabetes mellitus without complications C Reactive Protein 04/19/25 H04.129 - Dry eye syndrome of unspecified lacrimal gland, R13.10 - Dysphagia, unspecified, R68.2 - Dry mouth, unspecified JOAN Reflex Titer and Pattern 04/19/25 H04.129 - Dry eye syndrome of unspecified lacrimal gland, R13.10 - Dysphagia, unspecified, R68.2 - Dry mouth, unspecified Complete Blood Count Auto Diff 4 Months D64.9 - Anemia, unspecified Lipid Panel 4 Months E78.00 - Pure hypercholesterolemia, unspecified Hemoglobin A1c 4 Months E11.9 - Type 2 diabetes mellitus without complications TSH reflex Free T4 4 Months E78.00 - Pure hypercholesterolemia, unspecified UA CC w/rflx Micro + Cult 4 Months R30.0 - Dysuria Vitamin D 25-OH Total 4 Months E55.9 - Vitamin D deficiency, unspecified Medications: New pantoprazole 40 mg PO DAILY 30 tabs 5RF 30 days K29.70 - Gastritis, unspecified, without bleeding
--- OUTSIDE RECORDS SUMMARY | 2025-04-19 16:28 | XMS_ITS | Patient Health Record ---
Author Organization [facility] Address [address] [address] Care Team Providers Care Manager Life Insurance Name Role Phone Morteza SAEED, [place] Primary Care Provider Cristopher Valera Unavailable [phone] Allergies No Known Allergies Results Component Value Reference Range Notes HEMOGLOBIN A1C (GLYCOHEMOGLO BIN) Reviewed date:03/07/2025 08:42:40 AM Interpretation: Performing Lab: Notes/Report: HEMOGLOBIN A1C % (HH) 7.2 Reason For Referral No Information Medications Medication SIG (Take, Route, Frequency, Duration) Notes Start Date End Date Status ProAir HFA 108 (90 Base) MCG/ACT (Prior Auth: Rx Ref#:[id number]) Inhalation; Duration: 25 Active Jardiance 10 MG 1 tablet Orally Once a day Not-Taking Mirtazapine 30 MG (Prior Auth: Rx Ref#:[id number]) Orally Once a day Active Yuvafem 10 MCG (Prior Auth: Rx Ref#:[id number]) Vaginal; Duration: 84 Not-Taking Trulicity Active traZODone HCl 100 MG as directed Orally Once a day Active glipiZIDE XL 2.5 MG (Prior Auth: Rx Ref#:[id number]) Oral; Duration: 90 Active Sertraline HCl 25 MG (Prior Auth: Rx Ref#:[id number]) Oral; Duration: 30 Not-Taking Furosemide 20 MG (Prior Auth: Rx Ref#:[id number]) Oral; Duration: 90 PRN Not-Taking metroNIDAZOLE 0.75 % (Prior Auth: Rx Ref#:[id number]) Vaginal; Duration: 5 Not-Taking Metoprolol Succinate Active Valved Holding Chamber - (Prior Auth: Rx Ref#:[id number]); Duration: 30 Not-Taking Lantus SoloStar Acti ve Sulfamethoxazole-Trimetho prim 800-160 MG (Prior Auth: Rx Ref#:[id number]) Oral; Duration: 5 Not-Taking Digoxin 125 MCG (Prior Auth: Rx Ref#:[id number]) Oral; Duration: 90 Not-Taking Dicyclomine HCl 10 MG (Prior Auth: Rx Ref#:[id number]) Oral; Duration: 30 Active Fluticasone Propionate 50 MCG/ACT 2 spray in each nostril Nasally Once a day Active Fluconazole 150 MG (Prior Auth: Rx Ref#:[id number]) Oral; Duration: 3 Not-Taking Flovent HFA 220 MCG/ACT (Prior Auth: Rx Ref#:[id number]) Inhalation; Duration: 30 Active Clotrimazole 1 % (Prior Auth: Rx Ref#:[id number]) External; Duration: 7 Not-Taking Extra Depth Orthopedic Shoes (1 Pair) with Customized Heat Molded Multidensity Innersoles (3 Pair) as directed Dx: NIDDM (E11.9), Hammertoe Foot Deformity (M20.41,M20.42), Preulcerative Skin Lesion(s) (L85.1) Active Corlanor 5 MG 1 tablet with meals Orally Twice a day; Duration: 30 day(s) Active Spironolactone 25 MG (Prior Auth: Rx Ref#:[id number]) Oral; Duration: 90 Active Atorvastatin Calcium 80 MG 1 tablet Orally Once a day Active Pravastatin Sodium 20 MG (Prior Auth: Rx Ref#:[id number]) Oral; Duration: 90 Active Estring 2 MG as directed Vaginal Not-Taking Meloxicam 15 MG (Prior Auth: Rx Ref#:[id number]) Oral; Duration: 90 Not-Taking Entresto 97-103 MG (Prior Auth: Rx Ref#:[id number]) Oral; Duration: 90 Active Vitamin D-3 1000 [...] HCl ER 500 MG (Prior Auth: Rx Ref#:[id number]) Oral; Duration: 90 Not-Taking rOPINIRole HCl 0.5 [...] Problem Acquired hammer toe of right foot ([id number] 5) Other hammer toe(s) (acquired), right foot (M20.41) Active confirmed Problem Acquired hammer toe of left foot ([id number] 3) Other hammer toe(s) (acquired), left foot (M20.42) Active confirmed Problem Type II diabetes mellitus without complication (206785708) Type 2 diabetes mellitus without complications (E11.9) Active confirmed Vital Signs Blood pressure diastolic 60 mm Hg 03/07/2025 Height 5ft 3in in 03/07/2025 Blood pressure systolic 125 mm Hg 03/07/2025 Weight 134 lbs 03/07/2025 BMI 23.73 kg/m2 03/07/2025 Encounters Encounter Location Date Provider Diagnosis [facility] [address] [address] 03/07/2025 Cristopher Lawrence Other hammer toe(s) (acquired), [...] Name:Cristopher Lawrence , 03/08/2026 08:30:00 AM, [address], [address], [place], [address], Insurance Providers Payer Name Payer Address Payer Phone Subscriber Number Group Number Insured Name Patient Relationship to Insured Coverage Start Date Coverage End Date [employer] [address] [place] [address] [id number] Phyllis Howard Self - patient is the insured 9 Standard [address] [place] [address] [id number] Zac Howard Spouse - patient is the [...] 10/08 23 Hospitalization History Reason Date(Month/Year) @ [facility] removed fluid from lungs 03/22 018 [facility] Congestive heart failure 02/20/2015
== END 2025-04-19 16:27 | disposition home or self-care (01) ==
LOC: HO.HMCH 15:05
PROVIDERS: PCP Internal Medicine; Visit Provider Internal Medicine
DX: E11.65 Type 2 diabetes mellitus with hyperglycemia (principal); Z79.4 Long term (current) use of insulin; I50.22 Chronic systolic (congestive) heart failure; I42.8 Other cardiomyopathies; J45.40 Moderate persistent asthma, uncomplicated; R13.10 Dysphagia, unspecified; E78.00 Pure hypercholesterolemia, unspecified; I10 Essential (primary) hypertension; K59.00 Constipation, unspecified; E87.5 Hyperkalemia; J30.9 Allergic rhinitis, unspecified; G47.00 Insomnia, unspecified; F41.9 Anxiety disorder, unspecified; F32.9 Major depressive disorder, single episode, unspecified

== ENCOUNTER → 2025-04-19 15:04 | Outpatient (BNVA) | payer MEDICARE, OTHER, SELFPAY | PROVIDERS: PCP Internal Medicine; Visit Provider Internal Medicine | DX: J45.40 Moderate persistent asthma, uncomplicated (principal); R13.10 Dysphagia, unspecified; E11.65 Type 2 diabetes mellitus with hyperglycemia; I11.0 Hypertensive heart disease with heart failure; I50.22 Chronic systolic (congestive) heart failure; I42.8 Other cardiomyopathies; E78.00 Pure hypercholesterolemia, unspecified; K59.00 Constipation, unspecified; E87.5 Hyperkalemia; J30.9 Allergic rhinitis, unspecified; G47.00 Insomnia, unspecified; F41.9 Anxiety disorder, unspecified; F32.9 Major depressive disorder, single episode, unspecified; Z79.4 Long term (current) use of insulin; Z87.891 Personal history of nicotine dependence | CPT/HCPCS: 99212 ==